=== PATIENT | female | born 1960 ===

== ENCOUNTER 2020-05-05 16:59 | Emergency (ER) | payer OTHER, SELFPAY ==
--- NOTE | 2020-05-05 17:26 | ED.GENADULT ---
HPI - General Adult General Stated complaint: R/O DVT Time Seen by Provider: 05/05/20 17:26 Related Data Previous Rx's Medication Instructions Recorded citalopram 20 mg tablet 20 mg PO DAILY #30 cap 02/25/20 naproxen 500 mg tablet 500 mg PO BID PRN #60 tab 03/08/20 Allergies Allergy/AdvReac Type Severity Reaction Status Date / Time No Known Allergies Allergy Unverified 01/17/20 16:08 [No Known Allergies*] Course Course Course Narrative: 6777-This serves as a rapid medical exam. 59 yo female with past medical history of fibromyalgia, OA, HTN, borderline diabetes here with LLE pain and swelling for weeks. No redness, warmth, fevers, chills. No recent travel or surgeries. No SOB or CP. Will check US. Deferred HPI, ROS, PE and further evaluation until seen by primary provider. Discharge Plan Discharge Prescriptions: No Action citalopram 20 mg tablet 20 mg PO DAILY Qty: 30 RF: 4 naproxen 500 mg tablet 500 mg PO BID PRN (Reason: pain) Qty: 60 RF: 0
[2020-05-05 17:27] VITALS: BP 150/78; PULSE 84; RESP 18; TEMP 36.4; O2SAT 96; BMI 44.8
--- NOTE | 2020-05-05 17:29 | US_ITS ---
EXAMINATION: US VENOUS ULTRASOUND WITH DOPPLER LOWER EXTREMITY, LEFT CLINICAL INFORMATION: Swelling, pain. Rule out DVT COMPARISON: None TECHNIQUE: Ultrasound of the deep veins is performed from the hip to the calf with compression sonography and color and pulse Doppler assessment. Spectral analysis with color-flow imaging is performed. FINDINGS: There is normal venous compression and respiratory variation and augmented flow. The visualized common femoral vein, superficial femoral vein, profunda femoral vein, popliteal vein, and the trifurcation region shows no evidence of deep venous thrombosis. There is no significant popliteal fossa cyst. If the patient's symptoms persist, followup ultrasound in 5 days 7 days might be of value to exclude proximal propagation from a non-visualized calf vein. US/US venous duplex LE IMPRESSION: No DVT demonstrated in the left lower extremity.
== END 2020-05-06 00:24 | disposition left against medical advice (07) ==
LOC: HO.ED 05-06 00:23
PROVIDERS: Emergency Provider Emergency Medicine; PCP Internal Medicine
DX: M79.662 Pain in left lower leg (principal); I10 Essential (primary) hypertension
CPT/HCPCS: 93971; 99282; 99284

== ENCOUNTER → 2020-05-27 11:14 | Outpatient (BNVA) | payer OTHER, MEDICAID, SELFPAY | PROVIDERS: PCP Internal Medicine; Visit Provider Surgery Vascular Surgery | DX: I83.12 Varicose veins of left lower extremity with inflammation (principal) | CPT/HCPCS: 99202 ==

== ENCOUNTER 2020-06-04 10:28 | Outpatient (REF) | payer OTHER, SELFPAY ==
--- NOTE | 2020-06-04 10:34 | US_ITS ---
EXAMINATION: RIGHT and LEFT LOWER EXTREMITY VENOUS ULTRASOUND (Reflux Exam) CLINICAL INDICATION: leg pain and varicose veins. COMPARISON: Previous left lower extremity venous ultrasound May 2020 TECHNIQUE: Color flow triplex imaging and compression Doppler was performed to evaluate both the deep and the superficial systems bilaterally. To evaluate the superficial system, the examination was performed in the upright position. Color-flow Doppler ultrasound and compression ultrasound were utilized. In addition, maneuvers were utilized to demonstrate reflux. FINDINGS: 1. DEEP VENOUS ULTRASOUND OF THE RIGHT LOWER EXTREMITY: Respiratory variation, normal compression and augmented flow are noted in the right common femoral vein as well as the right popliteal vein and there is no evidence of deep venous thrombosis at these locations. There is no evidence of reflux in the deep system in either the common femoral vein or the popliteal vein. There is no evidence of a Khan's cyst. 2. SUPERFICIAL ULTRASOUND WITH DOPPLER OF RIGHT LOWER EXTREMITY: The right great saphenous vein at the saphenofemoral junction measures 10 mm, at the mid thigh 4 mm, jnyti-fhb-dmao 4 mm, hfqsz-mux-sacm 4 mm, at mid calf 2 mm and at the ankle measures 3 mm. There is no reflux demonstrated in the right great saphenous vein. The right small saphenous vein measures 1-6 mm and shows no reflux. There is a small varicosities in the thigh and calf that do not demonstrate reflux measuring maximum 4 mm in the proximal thigh. 3. DEEP VENOUS ULTRASOUND OF THE LEFT LOWER EXTREMITY: Respiratory variation, normal compression and augmented flow are noted in the left common femoral vein as well as the left popliteal vein and there is no evidence of deep venous thrombosis at these locations. There is no evidence of reflux in the deep system in either the common femoral vein or the popliteal vein. . There is no evidence of a Khan's cyst. 4. SUPERFICIAL ULTRASOUND WITH DOPPLER OF LEFT LOWER EXTREMITY: Left great saphenous vein at the saphenofemoral junction measures 8 mm, at the mid thigh 3 mm, eyhfw-xlm-bcye 3 mm, cxjus-jfi-faya 2 mm, at mid calf 2 mm and at the ankle measures 2 mm. There is a 2.2 seconds reflux in the left greater saphenous vein in the proximal thigh. The left small saphenous vein measures 3-5 mm and shows no reflux. There are small varicosities that measure 2 mm in the left thigh and calf that do not demonstrate reflux. US/US venous duplex LE BI IMPRESSION: 1. No evidence of reflux or thrombus in the common femoral veins or popliteal veins bilaterally. 2. No right greater saphenous vein reflux. 2.2 seconds reflux in the left greater saphenous vein in the proximal thigh.
[2020-06-04 14:42] LABS: MANUAL DIFF FLAG NO
[2020-06-04 14:45] LABS: Basophils Percent Auto 0.4 % (0-2); Eosinophils Absolute Auto 0.2 X10*3/uL (0.0-0.4); Eosinophils Percent Auto 2.1 % (0-4); Hematocrit 37.9 % (37-47); Hemoglobin 11.8 g/dl (12.0-16.0); Imm Gran Abs Auto 0.01 X10*3/uL (0.00-0.03); Imm Gran Pct Auto 0.1 % (0.0-0.4); Lymphocytes Absolute Auto 3.3 X10*3/uL (1.2-4.9); Mean Corpuscular HGB Conc 31.1 g/dl (31.0-35.0); Mean Corpuscular Hemoglobin 27.2 pg (27.0-33.0); Mean Corpuscular Volume 87.3 fL (80-98); Mean Platelet Volume 10.4 fL (9.4-12.3); Monocytes Absolute Auto 0.7 X10*3/uL (0.1-1.2); Monocytes Percent Auto 8.7 % (2-11); Neutrophils Absolute Auto 3.5 X10*3/uL (2.0-8.3); Neutrophils Percent Auto 45.7 % (45-73); Platelet Count 389 X10*3/uL (160-400); Red Blood Count 4.34 X10*6/uL (4.20-5.50); Red Cell Distribution Width 12.1 % (11.0-16.0); White Blood Count 7.6 X10*3/uL (4.8-10.8)
[2020-06-04 15:06] LABS: Alanine Aminotransferase 13 U/L (0-31); Albumin Level 3.5 g/dL (3.5-5.0); Alkaline Phosphatase 78 U/L (39-117); Anion Gap 12 (12-20); Aspartate Amino Transferase 18 U/L (5-31); Bilirubin Total 0.3 mg/dL (0.0-1.0); Blood Urea Nitrogen 19 mg/dL (9-16); Calcium 8.7 mg/dL (8.4-10.2); Carbon Dioxide 31 mmol/L (22-29); Chloride 100 mmol/L (96-108); Estimated Glomerular Filt Rate 50; Glucose Random 109 mg/dL (60-115); Potassium 4.6 mmol/L (3.3-5.1); Sodium 138 mmol/L (135-145)
== END 2020-06-04 10:29 | disposition home or self-care (01) ==
LOC: HO.US 10:28
PROVIDERS: Student in an Organized Health Care Education/Training Program; Visit Provider Surgery Vascular Surgery
DX: I83.12 Varicose veins of left lower extremity with inflammation (principal); I83.893 Varicose veins of bilateral lower extremities with other complications; M17.0 Bilateral primary osteoarthritis of knee
CPT/HCPCS: 36415; 80053; 85025; 93970; 99212

== ENCOUNTER → 2020-06-19 11:38 | Outpatient (BNVA) | payer OTHER, SELFPAY | PROVIDERS: Visit Provider Surgery Vascular Surgery | DX: I83.12 Varicose veins of left lower extremity with inflammation (principal) | CPT/HCPCS: 99212 ==

== ENCOUNTER → 2020-07-15 08:42 | Outpatient (BNVA) | payer OTHER, SELFPAY | PROVIDERS: PCP Internal Medicine; Referring Provider Internal Medicine; Visit Provider Student in an Organized Health Care Education/Training Program ==

== ENCOUNTER 2020-11-21 08:50 | Outpatient (REF) | payer OTHER, SELFPAY ==
[2020-11-21 10:12] LABS: MANUAL DIFF FLAG NO
[2020-11-21 10:18] LABS: Basophils Percent Auto 0.5 % (0-2); Eosinophils Absolute Auto 0.2 X10*3/uL (0.0-0.4); Eosinophils Percent Auto 3.5 % (0-4); Hematocrit 39.5 % (37-47); Imm Gran Abs Auto 0.01 X10*3/uL (0.00-0.03); Imm Gran Pct Auto 0.2 % (0.0-0.4); Lymphocytes Absolute Auto 2.7 X10*3/uL (1.2-4.9); Lymphocytes Percent Auto 43.6 % (20-40); Mean Corpuscular HGB Conc 30.4 g/dl (31.0-35.0); Mean Corpuscular Hemoglobin 26.9 pg (27.0-33.0); Mean Corpuscular Volume 88.6 fL (80-98); Mean Platelet Volume 10.7 fL (9.4-12.3); Monocytes Absolute Auto 0.5 X10*3/uL (0.1-1.2); Monocytes Percent Auto 7.7 % (2-11); Neutrophils Absolute Auto 2.7 X10*3/uL (2.0-8.3); Neutrophils Percent Auto 44.5 % (45-73); Platelet Count 397 X10*3/uL (160-400); Red Blood Count 4.46 X10*6/uL (4.20-5.50); Red Cell Distribution Width 12.7 % (11.0-16.0); White Blood Count 6.1 X10*3/uL (4.8-10.8)
[2020-11-21 10:40] LABS: Alanine Aminotransferase 11 U/L (0-31); Anion Gap 14 (12-20); Aspartate Amino Transferase 19 U/L (5-31); Blood Urea Nitrogen 16 mg/dL (9-16); Calcium 9.6 mg/dL (8.4-10.2); Carbon Dioxide 29 mmol/L (22-29); Chloride 103 mmol/L (96-108); Cholesterol 130 mg/dL; Estimated Glomerular Filt Rate 55; Glucose Fasting 117 mg/dL (60-99); HDL Cholesterol 40 mg/dL; Iron 70 mcg/dL (30-160); LDL Cholesterol Calculated 71 mg/dl; Percent Iron Saturation 24 % (15-50); Potassium 5.3 mmol/L (3.3-5.1); Sodium 141 mmol/L (135-145); Total Iron Binding Capacity 296 mcg/dL (228-428); Triglycerides 98 mg/dL; Unsaturated Iron Binding 226 ug/dL
[2020-11-21 10:48] LABS: Estimated Average Glucose 134 mg/dL; Hemoglobin A1c % 6.3 %
== END 2020-11-21 08:51 | disposition home or self-care (01) ==
LOC: HO.LAB 08:50
PROVIDERS: Visit Provider Internal Medicine
DX: Z00.01 Encounter for general adult medical examination with abnormal findings (principal); R73.01 Impaired fasting glucose; D64.9 Anemia, unspecified; I10 Essential (primary) hypertension; Z78.0 Asymptomatic menopausal state
CPT/HCPCS: 36415; 80048; 80061; 82306; 83036; 83540; 84450; 84460; 85025

== ENCOUNTER 2021-01-30 07:47 | Outpatient (REF) | payer OTHER, SELFPAY ==
--- NOTE | ~2021-01-30 | MM_ITS ---
EXAMINATION: MM SCREENING DIGITAL BREAST TOMOSYNTHESIS, BILATERAL CLINICAL INFORMATION: Screening. Asymptomatic. The lifetime risk of breast cancer based on the Tyrer-Cuzick Model is 5%. COMPARISON: Mammography: 01/24/2020, 09/15/2018, 08/31/2017 TECHNIQUE: Digital breast tomosynthesis is performed in both the craniocaudal and mediolateral oblique views along with computer-aided detection (CAD). Synthesized 2D images are generated from the tomosynthesis. FINDINGS: There are scattered areas of fibroglandular density (ACR BI-RADS breast composition Category b). There are no significant masses, abnormal calcifications, or other abnormalities. Parenchymal pattern is similar to prior studies. The axilla and skin contours are unremarkable. MM/MM tomosynthesis screening BI IMPRESSION: No mammographic evidence of malignancy. ASSESSMENT: BI-RADS 1: Negative RECOMMENDATION: Routine annual mammography screening. This patient's information was entered into a reminder system with a target due date for their next mammogram.
--- NOTE | ~2021-01-30 | MM_ITS ---
EXAMINATION: BONE DENSITOMETRY CLINICAL INDICATION: Asymptomatic menopausal state. COMPARISON: None (current study represents initial baseline exam). TECHNIQUE: Using a [employer] DXA System (software version: 13.1) manufactured by [employer], dual-energy x-ray absorptiometry was performed of the lumbar spine and left hip. The images are of good technical quality. Summary results are attached. FINDINGS: AP SPINE L1-L4: BMD 1.384 g/cm2, Z-score 2.1, T-score 1.7, normal. LEFT FEMUR, NECK: BMD 1.039 g/cm2, Z-score 0.7, T-score 0.0, normal. LEFT FEMUR, TOTAL: BMD 1.236 g/cm2, Z-score 2.2, T-score 1.8, normal. IDENTIFIED RISK FACTORS: Menopause. HISTORY OF FRACTURE: None listed. MEDICATIONS: Vitamin D. MM/XR DEXA axial skeleton IMPRESSION: 1. DIAGNOSIS: Normal bone density based on the lowest T-score value of 0.0 in the femoral neck applying World Health Organization criteria. 2. 10-YEAR FRACTURE RISK PREDICTION, FRAX: Major osteoporotic fracture (clinical spine, forearm, hip or shoulder) 2.9%. Hip fracture 0.1%. 3. Treatment Recommendations: NOF guidelines recommend consideration for treatment in postmenopausal women and men age 50 and older presenting with the following: -A hip or vertebral (clinical or morphometric) fracture. -T-score less than or equal to -2.5 at the femoral neck or spine after appropriate evaluation to exclude secondary causes. -Low bone mass at the hip or spine and a 10-year fracture probability by FRAX of greater than or equal to 3% for hip fracture or greater than or equal to 20% for major osteoporotic fracture based on the [place] adapted WHO algorithm. 4. Other Recommendations: All treatment decisions require clinical judgment and consideration of individual patient factors, including patient preferences, comorbidities, previous drug use, risk factors not captured in the FRAX model (e.g. frailty, falls, vitamin D deficiency, increased bone turnover, interval significant decline in bone density) and possible under or overestimation of fracture risk by FRAX. FUTURE SCAN RECOMMENDATION: People with diagnosed cases of osteoporosis or at high risk for fracture should have regular bone mineral density tests. For patients eligible for Medicare, routine testing is allowed once every 2 years. The testing frequency can be increased to one year for patients who have rapidly progressing disease, those who are receiving or discontinuing medical therapy to restore bone mass, or have additional risk factors.
== END 2021-01-30 07:48 | disposition home or self-care (01) ==
LOC: HO.MAMMO 07:47
PROVIDERS: Visit Provider Internal Medicine
DX: Z13.820 Encounter for screening for osteoporosis (principal); Z78.0 Asymptomatic menopausal state; Z12.31 Encounter for screening mammogram for malignant neoplasm of breast
CPT/HCPCS: 77063; 77067; 77080

== ENCOUNTER 2021-06-05 08:50 | Outpatient (REF) | payer OTHER, SELFPAY ==
--- NOTE | ~2021-06-05 | XR_ITS ---
EXAMINATION: XR SHOULDER, LEFT XR WRIST, LEFT CLINICAL INFORMATION: Left shoulder and left wrist pain. COMPARISON: None TECHNIQUE: AP, Grashey, scapular Y, and axillary views of the left shoulder. AP, oblique, lateral, and scaphoid views of the left wrist. FINDINGS: LEFT SHOULDER: Moderate acromioclavicular osteoarthritis with small lateral subacromial spurs. Small glenohumeral marginal osteophytes. Mild enthesopathic spurring at the posterior aspect of the greater tuberosity. No acute fracture or dislocation. LEFT WRIST: No displaced fracture. Mild joint space narrowing with tiny marginal osteophytes at the triscaphe joint as well as at the distal radioulnar joint. No dislocation. Normal carpal alignment. No abnormal soft tissue calcification. XR/XR shoulder LT min 2V IMPRESSION: Left shoulder: No acute fracture or dislocation. Moderate acromioclavicular osteoarthritis with small lateral subacromial spurs. Mild glenohumeral osteoarthritis. Left wrist: No displaced fracture. If there is snuffbox tenderness/persistent clinical concern for a nondisplaced scaphoid fracture, CT of the wrist could help further evaluate. Mild distal radioulnar and triscaphe joint osteoarthritis.
--- NOTE | ~2021-06-05 | XR_ITS ---
EXAMINATION: XR SHOULDER, LEFT XR WRIST, LEFT CLINICAL INFORMATION: Left shoulder and left wrist pain. COMPARISON: None TECHNIQUE: AP, Grashey, scapular Y, and axillary views of the left shoulder. AP, oblique, lateral, and scaphoid views of the left wrist. FINDINGS: LEFT SHOULDER: Moderate acromioclavicular osteoarthritis with small lateral subacromial spurs. Small glenohumeral marginal osteophytes. Mild enthesopathic spurring at the posterior aspect of the greater tuberosity. No acute fracture or dislocation. LEFT WRIST: No displaced fracture. Mild joint space narrowing with tiny marginal osteophytes at the triscaphe joint as well as at the distal radioulnar joint. No dislocation. Normal carpal alignment. No abnormal soft tissue calcification. XR/XR wrist LT 2V IMPRESSION: Left shoulder: No acute fracture or dislocation. Moderate acromioclavicular osteoarthritis with small lateral subacromial spurs. Mild glenohumeral osteoarthritis. Left wrist: No displaced fracture. If there is snuffbox tenderness/persistent clinical concern for a nondisplaced scaphoid fracture, CT of the wrist could help further evaluate. Mild distal radioulnar and triscaphe joint osteoarthritis.
== END 2021-06-05 08:51 | disposition home or self-care (01) ==
LOC: HO.XRAY 08:50
PROVIDERS: PCP Internal Medicine; Visit Provider Nurse Practitioner Family
DX: M17.0 Bilateral primary osteoarthritis of knee (principal); M25.512 Pain in left shoulder; M25.532 Pain in left wrist
CPT/HCPCS: 73030; 73100; 99212

== ENCOUNTER → 2021-06-09 09:26 | Outpatient (BNVA) | payer OTHER, SELFPAY | PROVIDERS: PCP Internal Medicine; Visit Provider Nurse Practitioner Family | DX: M25.532 Pain in left wrist (principal); M17.0 Bilateral primary osteoarthritis of knee | CPT/HCPCS: 99212 ==

== ENCOUNTER → 2021-07-03 08:58 | Outpatient (BNVA) | payer OTHER, SELFPAY | PROVIDERS: PCP Internal Medicine; Visit Provider Physician Assistant | DX: M75.102 Unspecified rotator cuff tear or rupture of left shoulder, not specified as traumatic (principal) | CPT/HCPCS: 20610; 99202; J1040 ==

== ENCOUNTER 2021-07-16 08:41 | Outpatient (REF) | payer OTHER, SELFPAY ==
--- NOTE | ~2021-07-16 | CT_ITS ---
EXAMINATION: CT LEFT WRIST CLINICAL INFORMATION: Wrist pain 1 year COMPARISON: X-ray 06/05/2021 TECHNIQUE: Axial imaging. Sagittal and coronal reconstructions. Dose: 141 mCi sunshine FINDINGS: No acute fracture is seen. Scaphoid appears intact without evidence of discrete fracture. Mild degenerative spurring at the first CMC joint. Minimal distal radioulnar arthritis. Joint space are relatively maintained. Carpal row alignment is maintained. No erosions or abnormal soft tissue calcification. Limited evaluation of the tendons. No gross tendon abnormality is identified. No focal fluid collection is seen. CT/CT wrist LT wo con IMPRESSION: *No evidence of acute osseous abnormality. *Mild first CMC arthritis. Minimal distal radioulnar arthritis. *If there is clinical clinical concern concern for intra-articular derangement or soft tissue abnormality, MRI could be helpful.
== END 2021-07-16 08:42 | disposition home or self-care (01) ==
LOC: HO.CT 08:41
PROVIDERS: PCP Internal Medicine; Visit Provider Nurse Practitioner Family
DX: M25.532 Pain in left wrist (principal)
CPT/HCPCS: 73200

== ENCOUNTER 2021-07-23 10:00 | Outpatient (RCR) | payer OTHER, SELFPAY ==
--- NOTE | 2021-06-25 10:52 | MHC.PT.EP ---
[facility] [place] Office [place] Office [place] Office [address] Yennifer Dominguez [address] [phone] F: [phone] F: [phone] F: [phone] F: [phone] Physical Therapy Plan of Care Date of Evaluation: Date of Surgery: N/A Diagnosis: pain in left shoulder Assessment: pt presents to physical therapy with pain, decreased range of motion, decreased strength, impaired functional mobility, impaired postural awareness, and gait deviations. pt is a good candidate for skilled PT due to age, potential remediation of impairments, typical disease/condition progression and prognosis, comorbidities, and motivation. pt would benefit from tailored strengthening and stretching exercise program, functional training, gait training, postural re-training, neuromuscular re-education, modalities as needed for pain, equipment safety demonstration. Frequency and Duration: The patient will be seen 2x/wk for 4 wks Short Term Goals: pt will be I w/ HEP to promote self-management of condition. pt will improve L shoulder flexion by 10 degrees to promote ease in reaching into cabinets for cooking utensils for meal prep. [facility] Goals: pt will report a statistically significant improvement in self-reported outcome measure, SPADI, to promote return to PLOF. pt will demo proper optical advisor bed mobility, sit<>supine transfer, and sit to stand transfer to promote optimal safety and injury prevention when taking care of her . Treatment Plan: Modalities to reduce pain, spasms and effusion. Manual therapy to restore motion and function. Therapeutic exercise to improve strength and flexibility. Neuromuscular re-education for posture and balance. Therapeutic activities to return to functional activities of daily living. Electronically signed by: Mackenzie Adams PT, DPT Please sign and return to therapist. Thank you for your referral.
--- NOTE | 2021-08-11 14:38 | MHC.PT.DC ---
[facility] [place] Office [place] Office [place] Office [address]ing[address] 140 [facility] [place] [phone] F: [phone] F: [phone] F: [phone] F: [phone] Physical Therapy Discharge Report Diagnosis: pain in left shoulder Date of Surgery: N/A Date of Evaluation: 06/25/21 Date of Discharge: 08/11/21 Treatments to Date: 7 Cancellations to Date: 3 No Shows to Date: 0 Discharge Status: Improved Function Independent with HEP Patient Elected to Stop Discharge Summary: The patient was doing very well and reporting an improvement in her pain severity, frequency, and ability to tolerate self-care activities and chores around the house. She was limited by some wrist pain but was still able to participate in physical therapy for her shoulder. She has a home exercise program. She cancelled her last visit and has not rescheduled any new appointments in nearly two weeks. She is discharged from this physical therapy plan of care to her home exercise program. Electronically signed by: Mackenzie Adams PT, DPT Please sign and return to therapist. Thank you for your referral.
== END 2021-08-11 14:38 | disposition home or self-care (01) ==
LOC: HO.PT 10:00
PROVIDERS: PCP Internal Medicine; Visit Provider Nurse Practitioner Family
DX: M25.512 Pain in left shoulder (principal)
CPT/HCPCS: 97110; 97162

== ENCOUNTER 2021-10-24 09:11 | Outpatient (REF) | payer OTHER, SELFPAY ==
[2021-10-24 09:25] LABS: MANUAL DIFF FLAG NO
[2021-10-24 10:18] LABS: Alanine Aminotransferase 15 U/L (0-31); Anion Gap 13 (12-20); Aspartate Amino Transferase 22 U/L (5-31); Blood Urea Nitrogen 18 mg/dL (9-16); Calcium 9.1 mg/dL (8.4-10.2); Carbon Dioxide 27 mmol/L (22-29); Chloride 104 mmol/L (96-108); Cholesterol 130 mg/dL; Estimated Glomerular Filt Rate 54; Glucose Fasting 137 mg/dL (60-99); HDL Cholesterol 36 mg/dL; LDL Cholesterol Calculated 67 mg/dl; Potassium 4.8 mmol/L (3.3-5.1); Sodium 139 mmol/L (135-145); Triglycerides 135 mg/dL
[2021-10-24 10:25] LABS: Basophils Percent Auto 0.6 % (0-2); Eosinophils Absolute Auto 0.2 X10*3/uL (0.0-0.4); Eosinophils Percent Auto 3.6 % (0-4); Hematocrit 38.8 % (37.0-47.0); Hemoglobin 11.8 g/dl (12.0-16.0); Imm Gran Abs Auto 0.01 X10*3/uL (0.00-0.03); Imm Gran Pct Auto 0.2 % (0.0-0.4); Lymphocytes Absolute Auto 2.8 X10*3/uL (1.2-4.9); Lymphocytes Percent Auto 43.8 % (20-40); Mean Corpuscular HGB Conc 30.4 g/dl (31.0-35.0); Mean Corpuscular Hemoglobin 26.6 pg (27.0-33.0); Mean Corpuscular Volume 87.6 fL (80.0-98.0); Mean Platelet Volume 10.3 fL (9.4-12.3); Monocytes Absolute Auto 0.5 X10*3/uL (0.1-1.2); Monocytes Percent Auto 8.4 % (2-11); Neutrophils Absolute Auto 2.7 x10*3/uL (2.0-8.3); Neutrophils Percent Auto 43.4 % (45-73); Platelet Count 383 X10*3/uL (160-400); Red Blood Count 4.43 X10*6/uL (4.20-5.50); Red Cell Distribution Width 12.2 % (11.0-16.0); White Blood Count 6.3 X10*3/uL (4.8-10.8)
[2021-10-24 10:41] LABS: Vitamin D 25-OH Total 30.3 ng/mL (>30)
[2021-10-24 10:44] LABS: Estimated Average Glucose 146 mg/dL; Hemoglobin A1c % 6.7 %
== END 2021-10-24 09:12 | disposition home or self-care (01) ==
LOC: HO.LAB 09:11
PROVIDERS: PCP Internal Medicine; Visit Provider Internal Medicine
DX: Z00.01 Encounter for general adult medical examination with abnormal findings (principal); R73.01 Impaired fasting glucose; F41.1 Generalized anxiety disorder; D64.9 Anemia, unspecified; Z78.0 Asymptomatic menopausal state
CPT/HCPCS: 36415; 80048; 80061; 82306; 83036; 84450; 84460; 85025

== ENCOUNTER 2022-02-01 13:51 | Outpatient (REF) | payer OTHER, SELFPAY ==
--- NOTE | ~2022-02-01 | MM_ITS ---
EXAMINATION: MM SCREENING DIGITAL BREAST TOMOSYNTHESIS, BILATERAL CLINICAL INFORMATION: Screening. Asymptomatic. The lifetime risk of breast cancer based on the Tyrer-Cuzick Model is 5%. COMPARISON: Mammography: 01/30/2021, 01/24/2020, 09/15/2018 TECHNIQUE: Digital breast tomosynthesis is performed in both the craniocaudal and mediolateral oblique views along with computer-aided detection (CAD). Synthesized 2D images are generated from the tomosynthesis. Additional right MLO and left CC views are provided. FINDINGS: There are scattered areas of fibroglandular density (ACR BI-RADS breast composition Category b). There are no significant masses, abnormal calcifications, or other abnormalities. Parenchymal pattern is similar to prior studies. There is no developing density or architectural abnormality. The axilla and skin contours are unremarkable. No significant changes. MM/MM tomosynthesis screening BI IMPRESSION: No mammographic evidence of malignancy. ASSESSMENT: BI-RADS 1: Negative RECOMMENDATION: Routine annual mammography screening. This patient's information was entered into a reminder system with a target due date for their next mammogram.
== END 2022-02-01 13:52 | disposition home or self-care (01) ==
LOC: HO.MAMMO 13:51
PROVIDERS: PCP Internal Medicine; Visit Provider Internal Medicine
DX: Z12.31 Encounter for screening mammogram for malignant neoplasm of breast (principal)
CPT/HCPCS: 77063; 77067

== ENCOUNTER 2022-02-16 08:13 | Outpatient (REF) | payer OTHER, SELFPAY ==
[2022-02-16 08:29] LABS: MANUAL DIFF FLAG NO
[2022-02-16 09:20] LABS: Basophils Percent Auto 0.7 % (0-2); Eosinophils Absolute Auto 0.2 X10*3/uL (0.0-0.4); Eosinophils Percent Auto 3.8 % (0-4); Hematocrit 39.5 % (37.0-47.0); Hemoglobin 12.3 g/dl (12.0-16.0); Imm Gran Abs Auto 0.01 X10*3/uL (0.00-0.03); Imm Gran Pct Auto 0.2 % (0.0-0.4); Lymphocytes Absolute Auto 2.4 X10*3/uL (1.2-4.9); Lymphocytes Percent Auto 39.9 % (20-40); Mean Corpuscular HGB Conc 31.1 g/dl (31.0-35.0); Mean Corpuscular Hemoglobin 26.7 pg (27.0-33.0); Mean Corpuscular Volume 85.7 fL (80.0-98.0); Mean Platelet Volume 10.1 fL (9.4-12.3); Monocytes Absolute Auto 0.6 X10*3/uL (0.1-1.2); Monocytes Percent Auto 9.1 % (2-11); Neutrophils Absolute Auto 2.8 x10*3/uL (2.0-8.3); Neutrophils Percent Auto 46.3 % (45-73); Platelet Count 390 X10*3/uL (160-400); Red Blood Count 4.61 X10*6/uL (4.20-5.50); Red Cell Distribution Width 12.3 % (11.0-16.0)
[2022-02-16 09:38] LABS: Estimated Average Glucose 160 mg/dL; Hemoglobin A1c % 7.2 %
[2022-02-16 09:55] LABS: Anion Gap 18 (12-20); Blood Urea Nitrogen 18 mg/dL (9-16); Calcium 8.9 mg/dL (8.4-10.2); Carbon Dioxide 25 mmol/L (22-29); Chloride 101 mmol/L (96-108); Estimated Glomerular Filt Rate 56; Glucose Fasting 144 mg/dL (60-99); Iron 53 mcg/dL (30-160); Percent Iron Saturation 19 % (15-50); Potassium 4.9 mmol/L (3.3-5.1); Sodium 139 mmol/L (135-145); Total Iron Binding Capacity 282 mcg/dL (228-428); Unsaturated Iron Binding 229 ug/dL
== END 2022-02-16 08:14 | disposition home or self-care (01) ==
LOC: HO.LAB 08:13
PROVIDERS: PCP Internal Medicine; Visit Provider Internal Medicine
DX: D64.9 Anemia, unspecified (principal); E66.01 Morbid (severe) obesity due to excess calories; R73.01 Impaired fasting glucose; I10 Essential (primary) hypertension
CPT/HCPCS: 36415; 80048; 83036; 83540; 85025

== ENCOUNTER 2022-06-05 09:47 | Outpatient (REF) | payer OTHER, SELFPAY ==
[2022-06-05 11:10] LABS: Estimated Average Glucose 157 mg/dL; Hemoglobin A1c % 7.1 %
[2022-06-05 12:15] LABS: Creatinine Urine 141.46 mg/dL; Microalbum/Creatinine Ratio Ur 6.3 ug/mg cr
[2022-06-05 12:20] LABS: Alanine Aminotransferase 13 U/L (0-31); Anion Gap 14 (12-20); Aspartate Amino Transferase 19 U/L (5-31); Blood Urea Nitrogen 17 mg/dL (9-16); Calcium 9.4 mg/dL (8.4-10.2); Carbon Dioxide 28 mmol/L (22-29); Chloride 102 mmol/L (96-108); Cholesterol 140 mg/dL; Estimated Glomerular Filt Rate 60; Glucose Fasting 144 mg/dL (60-99); HDL Cholesterol 36 mg/dL; LDL Cholesterol Calculated 80 mg/dl; Potassium 4.7 mmol/L (3.3-5.1); Sodium 139 mmol/L (135-145); Triglycerides 123 mg/dL
== END 2022-06-05 09:48 | disposition home or self-care (01) ==
LOC: HO.HMGCLDS 09:47
PROVIDERS: Visit Provider Internal Medicine
DX: E66.01 Morbid (severe) obesity due to excess calories (principal); F41.1 Generalized anxiety disorder; I10 Essential (primary) hypertension; E11.65 Type 2 diabetes mellitus with hyperglycemia
CPT/HCPCS: 36415; 80048; 80061; 82043; 83036; 84450; 84460

== ENCOUNTER 2022-07-09 10:07 | Outpatient (REF) | payer OTHER, SELFPAY ==
--- NOTE | ~2022-07-09 | XR_ITS ---
EXAMINATION: XR KNEE, LEFT CLINICAL INFORMATION: Pain COMPARISON: None TECHNIQUE: Three views of the left knee. FINDINGS: Mild degenerative changes. No acute osseous abnormalities. Soft tissues are unremarkable. XR/XR knee LT 3V IMPRESSION: Mild degenerative changes.
== END 2022-07-09 10:08 | disposition home or self-care (01) ==
LOC: HO.XRAY 10:07
PROVIDERS: PCP Internal Medicine; Visit Provider Nurse Practitioner Family
DX: M25.532 Pain in left wrist (principal); M25.562 Pain in left knee
CPT/HCPCS: 73562; 99212

== ENCOUNTER 2022-07-14 12:30 | Emergency (ER) | payer OTHER, SELFPAY ==
--- NOTE | ~2022-07-14 | XR_ITS ---
EXAMINATION: LEFT WRIST CLINICAL INFORMATION: Patient fell. Deformity COMPARISON: None TECHNIQUE: 3 views FINDINGS: Impacted distal radial fracture noted. Distal ulna is intact. There is overlying soft tissue swelling. XR/XR hand wrist LT IMPRESSION: Distal radial fracture.
--- NOTE | ~2022-07-14 | XR_ITS ---
EXAMINATION: XR WRIST, LEFT XR HAND, LEFT CLINICAL INFORMATION: Post reduction. COMPARISON: Earlier today at 1:15 PM. TECHNIQUE: 2 views of the left hand/wrist. FINDINGS: Overlying casting limits evaluation of fine osseous details. Redemonstration of a distal radial fracture with mild decreased dorsal angulation and overall similar degree of impaction. No interval injuries. XR/XR hand wrist LT IMPRESSION: Slightly decreased dorsal angulation of the distal radial fracture.
[2022-07-14 13:06] VITALS: BP 168/71; PULSE 82; RESP 16; TEMP 36.8; O2SAT 96; BMI 29.9
--- NOTE | 2022-07-14 13:06 | ED.FALL ---
HPI - Fall General Chief Complaint: Extremity Injury, Upper <SHANTANU Kumari - Last Filed: 07/14/22 13:09> Stated Complaint: Fall/ Left wrist injury <SHANTANU Kumari - Last Filed: 07/14/22 13:09> Time Seen by Provider: 07/14/22 13:10 <SHANTANU Kumari - Last Filed: 07/14/22 13:09> History of Present Illness HPI Narrative: Patient complains of left wrist pain after slip and fall in the snow this morning, no other injury, no numbness no weakness no tingling, no head strike no head injury no headache no loss of consciousness no confusion, no preceding symptoms no syncope no feeling faint no dizziness prior to fall, she does remember everything, no neck pain no back pain no other extremity injuries or pains <SHANTANU Vega - Last Filed: 07/16/22 11:56> Related Data Home Medications: Home Medications Medication Instructions Recorded Confirmed cholecalciferol (vitamin D3) 50 50 mcg PO DAILY 05/13/20 06/05/21 mcg (2,000 unit) capsule acetaminophen 500 mg tablet 500 mg PO Q6H PRN 06/09/21 (Tylenol Extra Strength) naproxen 500 mg tablet 500 mg PO BID PRN 07/09/22 07/09/22 Previous Rx's Medication Instructions Recorded citalopram 20 mg tablet 20 mg PO DAILY #90 caps 08/13/21 lisinopril 5 mg tablet 5 mg PO QAM #90 caps 08/13/21 metformin 500 mg tablet 500 mg PO DAILY 30 days #30 tabs 03/03/22 blood sugar diagnostic (FreeStyle #50 ea 03/10/22 Lite Strips) blood-glucose meter (FreeStyle #1 ea 03/10/22 Sulphur Lite kit) lancets 28 gauge (FreeStyle #100 ea 03/10/22 Lancets) oxycodone 5 mg tablet 5 mg PO Q6H PRN pain #14 tabs 07/14/22 <SHANTANU Kumari Last Filed: 07/14/22 13:09> Allergies/Adverse Reactions: Allergies Allergy/AdvReac Type Severity Reaction Status Date / Time No Known Allergies Allergy Verified 07/16/22 08:55 [No Known Allergies*] <SHANTANU Kumari - Last Filed: 07/14/22 13:09> [facility] Past Medical History Source: nursing notes reviewed <SHANTANU Vega - Last Filed: 07/16/22 11:56> Medical History: Medical History Anemia Bilateral primary osteoarthritis of knee Diabetes mellitus with hyperglycemia, without long-term current use of insulin Fibromyalgia Generalized anxiety disorder HTN (hypertension) Osteoarthritis Postmenopause Varicose veins of left lower extremity with pain <SHANTANU Kumari - Last Filed: 07/14/22 13:09> Surgical History: Surgical History H/O arthroscopy of left knee History of inguinal herniorrhaphy <SHANTANU Kumari - Last Filed: 07/14/22 13:09> Family History Family History: Family History Father Myocardial infarction Cancer of prostate Substance use disorder Mother HTN (hypertension) Diabetes mellitus Maternal Grandmother HTN (hypertension) Daughter No problems noted. Daughter No problems noted. Daughter No problems noted. Daughter No problems noted. Sister No problems noted. Sister No problems noted. Sister No problems noted. Sister No problems noted. Brother No problems noted. Brother No problems noted. Brother No problems noted. Brother No problems noted. Brother Substance use disorder Brother No problems noted. Brother No problems noted. 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 Current occupational exposures/hazards: No Cognitive needs: No Hearing needs: No Vision needs: No <SHANTANU Kumari - Last Filed: 07/14/22 13:09> Physical Exam Vital Signs: Vital Signs: Last Vital Signs Temp 98.2 F 07/14/22 13:06 Pulse 82 07/14/22 13:06 Resp 16 07/14/22 13:06 BP 168/71 H 07/14/22 13:06 Pulse Ox 96 07/14/22 13:06 O2 Del Method 07/14/22 13:06 BMI result Body Mass Index 29.9 <SHANTANU Kumari - Last Filed: 07/14/22 13:09> Vital Signs: Last Vital Signs Temp 98.2 F 07/14/22 13:06 Pulse 82 07/14/22 13:06 Resp 16 07/14/22 13:06 BP 168/71 H 07/14/22 13:06 Pulse Ox 96 07/14/22 13:06 O2 Del Method 07/14/22 13:06 BMI result Body Mass Index 29.9 <SHANTANU Vega - Last Filed: 07/16/22 11:56> General appearance no distress dress Head is normocephalic atraumatic The neck is supple nontender Chest wall nontender Abdomen nontender Extremities the left dorsal wrist is tender and swollen, neurovascular intact distal, skin is intact Range of motion is limited in the left wrist, elbow and hand have no tenderness or swelling <SHANTANU Vega - Last Filed: 07/16/22 11:56> Course Course Course Narrative: RME--62-year-old female with a past medical history HTN, diabetes, presenting to the ED 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 + noted deformity to left wrist with diffuse swelling and tenderness to palpation. Decreased ROM. Neurovascular intact distally. 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 + noted deformity to left wrist with diffuse swelling and tenderness to palpation. Decreased ROM. Neurovascular intact distally. XRs ordered Left wrist x-ray showed an impacted distal radius fracture, ulnar was intact Attempt at reduction was made by hanging the arm with a weight for 45 minutes Post reduction did not show significant improvement, contacted Ortho and they will see her in the office and it was splinted Patient's pain had been controlled with analgesics and she was comfortable and cooperative throughout visit and she was discharged with a volar splint to follow with Ortho <SHANTANU Vega - Last Filed: 07/16/22 11:56> Medications Administered Discontinued Medications Generic Name Dose Route Start Last Admin Trade Name Freq PRN Reason Stop Dose Admin Acetaminophen 975 mg 07/14/22 13:30 07/14/22 13:34 Acetaminophen 325 Mg Tablet PO 07/14/22 13:31 975 mg ONCE ONE Administration Lorazepam 1 mg 07/14/22 16:49 07/14/22 16:52 Lorazepam 1 Mg Tablet PO 07/14/22 16:50 Not Given ONCE ONE Oxycodone HCl 5 mg 07/14/22 13:29 07/14/22 13:34 Oxycodone Hcl Immed Release 5 Mg Tablet PO 07/14/22 13:30 5 mg ONCE ONE Administration <SHANTANU Kumari - Last Filed: 07/14/22 13:09> Medications Administered Discontinued Medications Generic Name Dose Route Start Last Admin Trade Name Freq PRN Reason Stop Dose Admin Acetaminophen 975 mg 07/14/22 13:30 07/14/22 13:34 Acetaminophen 325 Mg Tablet PO 07/14/22 13:31 975 mg ONCE ONE Administration Lorazepam 1 mg 07/14/22 16:49 07/14/22 16:52 Lorazepam 1 Mg Tablet PO 07/14/22 16:50 Not Given ONCE ONE Oxycodone HCl 5 mg 07/14/22 13:29 07/14/22 13:34 Oxycodone Hcl Immed Release 5 Mg Tablet PO 07/14/22 13:30 5 mg ONCE ONE Administration <SHANTANU Vega - Last Filed: 07/16/22 11:56> Discharge Plan Discharge Clinical Impression: Fracture of left wrist <SHANTANU Kumari - Last Filed: 07/14/22 13:09> Patient Disposition: Home, Self-Care <SHANTANU Kumari Last Filed: 07/14/22 13:09> Additional Instructions: Follow closely with orthopedist to determine if you need surgical treatment Use sling to keep arm elevated to reduce swelling Return any time if worse <SHANTANU Kumari Last Filed: 07/14/22 13:09> Prescriptions: New oxycodone 5 mg tablet 5 mg PO Q6H PRN (Reason: pain) Qty: 14 0RF Rx Instructions: Partial Fill upon patient request. No Action citalopram 20 mg tablet 20 mg PO DAILY Qty: 90 3RF lisinopril 5 mg tablet 5 mg PO QAM Qty: 90 3RF (DME) blood-glucose meter [FreeStyle Sulphur Lite] Kit See Rx Instructions .Route Qty: 1 0RF Rx Instructions: check fasting glucose qd ac (DME) FreeStyle Lite Strips Strip See Rx Instructions .Route Qty: 50 4RF Rx Instructions: check fasting glucose qd ac (DME) lancets [FreeStyle Lancets] 28 gauge misc See Rx Instructions .Route Qty: 100 0RF Rx Instructions: As directed cholecalciferol (vitamin D3) 50 mcg (2,000 unit) capsule 50 mcg PO DAILY metformin 500 mg tablet 500 mg PO DAILY 30 Days Qty: 30 5RF Rx Instructions: take with supper acetaminophen [Tylenol Extra Strength] 500 mg tablet 500 mg PO Q6H PRN naproxen 500 mg tablet 500 mg PO BID PRN <SHANTANU Kumari - Last Filed: 07/14/22 13:09> Referrals: Kranthi Rivera MD [Physician] - (Left wrist fracture) <SHANTANU Kumari - Last Filed: 07/14/22 13:09> Interventions: ED Discharge Assessment Last Done: 07/14/22 17:47 <SHANTANU Kumari - Last Filed: 07/14/22 13:09> Discharge Date/Time: 07/14/22 17:47 <SHANTANU Kumari - Last Filed: 07/14/22 13:09>
[2022-07-14] MEDS: oxyCODONE HCl Immed Release 5 MG TABLET PO (13:34)
[2022-07-14] MEDS: Acetaminophen 325 MG TABLET 975 MG PO (13:34)
== END 2022-07-14 17:47 | disposition home or self-care (01) ==
PROVIDERS: Emergency Provider Emergency Medicine; PCP Internal Medicine
DX: S62.102A Fracture of unspecified carpal bone, left wrist, initial encounter for closed fracture (principal); M25.532 Pain in left wrist; W00.0XXA Fall on same level due to ice and snow, initial encounter; Y93.9 Activity, unspecified; Y92.007 Garden or yard of unspecified non-institutional (private) residence as the place of occurrence of the external cause; Y99.9 Unspecified external cause status; Z79.899 Other long term (current) drug therapy
CPT/HCPCS: 73110; 73130; 99283

== ENCOUNTER → 2022-07-16 08:44 | Outpatient (BNVA) | payer OTHER, SELFPAY | PROVIDERS: PCP Internal Medicine; Visit Provider Physician Assistant | DX: S52.502A Unspecified fracture of the lower end of left radius, initial encounter for closed fracture (principal) | CPT/HCPCS: 99202 ==

== ENCOUNTER 2022-07-19 05:47 | Day surgery (SDC) | payer OTHER, SELFPAY ==
--- NOTE | 2022-07-16 14:37 | HO.ANESPROP2 ---
Documented by User: Dee Cooper NP 07/16/22 14:39 HPI - Anesthesia Eval Consult details Narrative: 62yo F for Left Radius Distal Fracture ORIF PMFSH Active Problems Active Problems: All Active Problems (Updated 07/16/22 @ 09:46 by Lisandro Levy PA-C) Distal radius fracture, left (Acute) Diabetes mellitus with hyperglycemia, without long-term current use of insulin (Acute) HTN (hypertension) (Acute) Morbid obesity (Acute) Painful arc syndrome of left shoulder (Acute) Generalized anxiety disorder (Acute) Postmenopause (Acute) Bilateral primary osteoarthritis of knee (Acute) Varicose veins of left lower extremity with inflammation (Acute) Varicose veins of left lower extremity with pain (Acute) Past Medical History Medical History Anemia Bilateral primary osteoarthritis of knee Diabetes mellitus with hyperglycemia, without long-term current use of insulin Fibromyalgia Generalized anxiety disorder HTN (hypertension) Osteoarthritis Postmenopause Varicose veins of left lower extremity with pain Family History Family History Father Myocardial infarction Cancer of prostate Substance use disorder Mother HTN (hypertension) Diabetes mellitus Maternal Grandmother HTN (hypertension) Daughter No problems noted. Daughter No problems noted. Daughter No problems noted. Daughter No problems noted. Sister No problems noted. Sister No problems noted. Sister No problems noted. Sister No problems noted. Brother No problems noted. Brother No problems noted. Brother No problems noted. Brother No problems noted. Brother Substance use disorder Brother No problems noted. Brother No problems noted. Surgical History Surgical History H/O arthroscopy of left knee History of inguinal herniorrhaphy Social History Social History (Updated 07/16/22 @ 08:56 by KELVIN Crow) Housing: Apartment Alcohol intake: never Patient Tobacco Use Status: Never used Tobacco Tobacco use type: Cigarette Years Smoked: pt tried 48 years ago e-Cigarette/Vaping Use: Never Used Second Hand Smoke Exposure: No Use of substances other than those prescribed or required for medical reasons: No Are you DNR?: No Advance Directives: No Advance Directives Information Provided: Yes Advance Directives on File: No service: No Current occupational status: disabled 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 Current occupational exposures/hazards: No Cognitive needs: No Hearing needs: No Vision needs: No Meds Allergies Allergy/AdvReac Type Severity Reaction Status Date / Time No Known Allergies Allergy Verified 07/16/22 08:55 [No Known Allergies*] Home Medications Medication Instructions Recorded Confirmed Last Taken Type cholecalciferol (vitamin D3) 50 50 mcg PO DAILY 05/13/20 07/19/22 07/18/22 History mcg (2,000 unit) capsule acetaminophen 500 mg tablet 500 mg PO Q6H PRN Pain 06/09/21 07/19/22 07/17/22 History (Tylenol Extra Strength) naproxen 500 mg tablet 500 mg PO BID PRN Pain 07/09/22 07/19/22 07/18/22 History Exam Exam Date and Time: July 16, 2022 143 Pertinent Lab Results Pertinent Lab Results: Laboratory Tests 02/16/22 06/05/22 08:27 09:55 WBC 6.0 Hgb 12.3 Hct 39.5 Plt Count 390 Sodium 139 Potassium 4.7 Chloride 102 Carbon Dioxide 28 BUN 17 H Creatinine 0.95 Assessment and Plan Assessment Anesthesia Assessment: Chart Reviewed Documented by User: Conchita Aguirre MD 07/19/22 08:35 [facility] Past Medical History Medical History Anemia Bilateral primary osteoarthritis of knee Diabetes mellitus with hyperglycemia, without long-term current use of insulin Fibromyalgia Generalized anxiety disorder HTN (hypertension) Osteoarthritis Postmenopause Varicose veins of left lower extremity with pain Family History Family History Father Myocardial infarction Cancer of prostate Substance use disorder Mother HTN (hypertension) Diabetes mellitus Maternal Grandmother HTN (hypertension) Daughter No problems noted. Daughter No problems noted. Daughter No problems noted. Daughter No problems noted. Sister No problems noted. Sister No problems noted. Sister No problems noted. Sister No problems noted. Brother No problems noted. Brother No problems noted. Brother No problems noted. Brother No problems noted. Brother Substance use disorder Brother No problems noted. Brother No problems noted. Family history of problems with anesthesia: No Surgical History Surgical History H/O arthroscopy of left knee History of inguinal herniorrhaphy History of Problems with Anesthesia: No Social History Social History (Updated 07/16/22 @ 08:56 by KELVIN Crow) Housing: Apartment Alcohol intake: never Patient Tobacco Use Status: Never used Tobacco Tobacco use type: Cigarette Years Smoked: pt tried 48 years ago e-Cigarette/Vaping Use: Never Used Second Hand Smoke Exposure: No Use of substances other than those prescribed or required for medical reasons: No Are you DNR?: No Advance Directives: No Advance Directives Information Provided: Yes Advance Directives on File: No service: No Current occupational status: disabled 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 Current occupational exposures/hazards: No Cognitive needs: No Hearing needs: No Vision needs: No Meds Allergies Allergy/AdvReac Type Severity Reaction Status Date / Time No Known Allergies Allergy Verified 07/16/22 08:55 [No Known Allergies*] Home Medications Medication Instructions Recorded Confirmed Last Taken Type cholecalciferol (vitamin D3) 50 50 mcg PO DAILY 05/13/20 07/19/22 07/18/22 History mcg (2,000 unit) capsule acetaminophen 500 mg tablet 500 mg PO Q6H PRN Pain 06/09/21 07/19/22 07/17/22 History (Tylenol Extra Strength) naproxen 500 mg tablet 500 mg PO BID PRN Pain 07/09/22 07/19/22 07/18/22 History Exam Airway Mallampati Class: II TM Dist: >3cm Neck ROM: Full Denture: Upper and Lower Heart: rrr Lungs: cta Assessment and Plan Assessment Anesthesia Assessment: Anesthesia Plan Discussed Final Anesthetic Review Family History of Problems with Anesthesia: No History of Problems with Anesthesia: No NPO: Yes ASA Class: III Final Preanesthetic Review: No Changes in Pt Med Stat, Meds/Allgs Chart Reviewed and Consent Obtained/Reviewed Patient Risk: Intermediate Anesthetic Plan Anesthetic Plan: GA and Regional Block Disposition: Standard PACU
[2022-07-19] VITALS (12 sets, daily range): BP systolic 142–193; BP diastolic 60–97; PULSE 63–81; RESP 12–18; TEMP 36.1–37; O2SAT 96–100; BMI 29.9
--- NOTE | ~2022-07-19 | FL_ITS ---
EXAMINATION: XR FLUOROSCOPY WITH IMAGES CLINICAL INFORMATION: Fracture distal radius. COMPARISON: None available. TECHNIQUE: Fluoroscopy Supervised By: Dr. Modesta Bray. Fluoroscopy Time: 22.96. Cumulative Dose: 0.6784 mGy. DAP: 0.0410 Gycm2. Images: 3. FINDINGS: There are 3 digital images obtained of left distal forearm with stabilized distal radial fracture with volar plate and screws in satisfactory alignment. No additional fracture seen. There is no angulation. FL/FL guidance in OR IMPRESSION: Stabilized distal radial fracture with volar plate and screws in satisfactory alignment.
[2022-07-19 06:27] LABS: Glucose, Whole Blood 146 mg/dL (60-115)
[2022-07-19] MEDS: Lactated Ringers 1,000 ML 100 ML IVCONT (06:31)
--- NOTE | 2022-07-19 08:00 | MHC.SHP ---
Pre-Procedural Eval Section A Date of Service: 07/19/22 The patient is an INPATIENT: No Changes since office visit: No Cold of Flu in the past 2 weeks, No New Medical Problems, No Changes in Medication and No Patient answered all questions The History & Physical has been completed within 30 days and I have reviewed it.: Yes Section B Chief Complaint: Unspecified fracture of the lower end of left radi Allergies: Allergies Allergy/AdvReac Type Severity Reaction Status Date / Time No Known Allergies Allergy Verified 07/16/22 08:55 [No Known Allergies*] Plan I have reviewed the history and physical and performed a pertinent physical examination on my patient. No changes have occurred unless specified. Time Spent With Patient Time: Total time managing care of this patient today ____ minutes.
--- NOTE | 2022-07-19 08:03 | P.OP_ITS ---
Operative Note Operative Note Date of Service: 07/19/22 Narrative: Operative Note Narrative: Preop diagnosis: 1. Left Distal radius fracture Postop diagnosis: Same Procedure: 1. Left Distal radius fracture open reduction internal fixation Surgeon: Modesta Bray MD Anesthesia: General anesthesia plus regional block Findings: Fairly distal transverse distal radius fracture, extra-articular Implants: A 3 hole Accu Med volar locking plate, with 4x 2.3 mm locking pe gs/screws, and 3 3.5 mm cortical screws Tourniquet time: 59 minutes EBL: 5.0 ml Specimen: None Drains: None Complications: None Disposition: Brought to the recovery room in stable condition Plan: Follow-up in 10-14 days for wound check, suture removal and postop radiographs The patient will be placed in either a a volar wrist splint. Encouraged no lifting of anything heavier than a cell phone. Please encourage active and passive range of motion of the digits. Follow-up at 4-5 weeks postop for repeat radiographs. Indications: The patient is a 62 year old woman with a displaced left distal radius fracture . The risks and benefits of operative treatment, including but not limited to risk of damage to blood vessels, nerves, tendons, infection, recurrence, persistent pain or numbness, incomplete resolution of preoperative symptoms, or need for further surgery were discussed with the patient and they wished to proceed with surgery. Procedure: Once consent was obtained patient was brought back to the operating suite and placed in the operating table in a supine position. A regional block was performed by the anesthesia team. Perioperative antibiotics and anesthesia was administered by the anesthesia team. A tourniquet was applied to the proximal aspect of the left upper extremity and the limb was prepped and draped in a standard surgical fashion. The limb was elevated exsanguinated with Esmarch bandage and the tourniquet inflated to 250 mm of mercury for a total tourniquet time of 59 minutes. The FluoroScan was used throughout the case to assess our reduction, and facilitate implant placement. A gentle closed reduction was 1st performed on the patient's left distal radius fracture. Was assessed radiographically before proceeding with the reduction internal fixation. I then made an 8 cm longitudinal incision over the distal aspect of the flexor carpi radialis tendon. The incision was made through the skin to the subcutaneous tissue using a 15. Blade. Then carefully dissected down to flexor carpi radialis tendon she tenotomy scissors. The FCR tendon sheath was then incised longitudinally using tenotomy scissors under direct visualization. The FCR tendon was then retracted ulnarly. I then made a longitudinal incision in the volar forearm fascia through the floor of FCR tendon sheath using tenotomy scissors under direct visualization. I identified the interval between the radial artery and the flexor tendons. This interval was developed further with my index finger, releasing some of the muscular fibers of the flexor pollicis longus. A dull weatlander retractor was then placed. I then created an ulnarly based flap of the pronator quadratus by releasing the radial and distal edges using a 15. Blade. A Gaona elevator was used to elevate the pronator quadratus from the volar surface of the distal radius. This then revealed to us our distal radius fracture. An open reduction was then performed on our distal radius fracture. I then placed a short narrow 3 hole Accu Med volar locking plate on the volar surface of the distal radius. I placed a single K-wire through the distal aspect of the plate and into the distal radius. This was assessed using fluoroscopic images. I was satisfied with the placement of our plate. I then placed 4x 2.3 mm locking screws/pegs in the distal aspect of the plate and distal radius by 1st drilling bicortically with a 2.0 mm drill bit, measuring with a depth gauge, and placing the appropriate length locking screws/pegs. The placement of our plate and screws was then assessed again using fluoroscopic images. The once satisfied with the placement of the volar locking plate and screws on the distal aspect of the distal radius, the plate was then reduced to the shaft of the radius. I then placed 3 3.5 mm cortical screws to the proximal aspect of the plate and into the shaft of the radius. This was done by 1st drilling bicortically with a 2.8 mm drill bit, measuring with a depth gauge, and placing the appropriate length screw. Final radiographs were then obtained. The DRUJ was assessed and found to be stable on exam. I was satisfied with our reduction and placement of all implants. At this point the wound was irrigated with normal saline. The tourniquet was then deflated and hemostasis was obtained with a brief period of local pressure and bipolar monopolar electrocautery. The subcutaneous layer was then reapproximated using some 4-0 Vicryl suture, and the skin edges were reapproximated using some 5 0 Prolene suture. The wound was then infiltrated with some 0.5% plain ropivacaine for postop pain control. A sterile dressing and a short dorsal splint allowing for active flexion and extension of the digits was applied. The patient appears to have tolerated the procedure well and with no complications. All digits were well vascularized conclusion of the case.
[2022-07-19] MEDS: oxyCODONE HCl Immed Release 5 MG TABLET PO (10:05)
[2022-07-19] MEDS: fentaNYL citrate/PF 100 MCG/2 ML VIAL 25 MCG IVPUSH ×3 (10:05→10:18)
== END 2022-07-19 11:20 | disposition home or self-care (01) ==
PROVIDERS: PCP Internal Medicine; Visit Provider Orthopaedic Surgery
PROC: (CPT 25525; principal; 2022-07-19 07:30)
DX: S52.552A Other extraarticular fracture of lower end of left radius, initial encounter for closed fracture (principal); W00.0XXA Fall on same level due to ice and snow, initial encounter; Y93.01 Activity, walking, marching and hiking; Y92.9 Unspecified place or not applicable; Y99.8 Other external cause status; M79.7 Fibromyalgia; D64.9 Anemia, unspecified; M19.90 Unspecified osteoarthritis, unspecified site; I10 Essential (primary) hypertension; E11.65 Type 2 diabetes mellitus with hyperglycemia; Z79.84 Long term (current) use of oral hypoglycemic drugs; Z79.899 Other long term (current) drug therapy
CPT/HCPCS: 25525; 82947; C1713; C1769; J0690; J1100; J2250; J2405; J2795; J3010

== ENCOUNTER 2022-08-03 10:16 | Outpatient (REF) | payer MEDICARE, SELFPAY ==
--- NOTE | ~2022-08-03 | XR_ITS ---
EXAMINATION: XR WRIST, LEFT CLINICAL INFORMATION: Pain left wrist COMPARISON: Left hand/wrist 07/14/2022. TECHNIQUE: PA, lateral, and oblique views of the left wrist. FINDINGS: There is interval volar plate and screws stabilizing distal radial fracture in alignment. The fracture line is visualized and unchanged to previous exam. XR/XR wrist LT min 3V IMPRESSION: Interval volar plate and screws stabilizing distal radial fracture in alignment. The fracture line is still visualized.
== END 2022-08-03 10:17 | disposition home or self-care (01) ==
LOC: HO.HOSX 10:16
PROVIDERS: Visit Provider Orthopaedic Surgery
DX: S52.502D Unspecified fracture of the lower end of left radius, subsequent encounter for closed fracture with routine healing (principal)
CPT/HCPCS: 73110

== ENCOUNTER 2022-08-23 13:34 | Outpatient (REF) | payer MEDICARE, SELFPAY | END 2022-08-23 13:35 | disposition home or self-care (01) | LOC: HO.HOSX 13:34 | PROVIDERS: Visit Provider Orthopaedic Surgery | DX: Z13.89 Encounter for screening for other disorder (principal) ==

== ENCOUNTER 2022-08-24 | Outpatient (REF) | payer OTHER, SELFPAY ==
--- NOTE | ~2022-08-24 | XR_ITS ---
EXAMINATION: XR WRIST, LEFT CLINICAL INFORMATION: Fracture COMPARISON: Left wrist 08/24/2022 TECHNIQUE: PA, lateral, and oblique views of the left wrist. FINDINGS: Plate and screws transfixing distal radius fracture. Orthopedic hardware appears unchanged. Fracture line still evident. Alignment unchanged. No other fracture. Old degenerative change of the triscaphe joint. Mild dorsal soft tissue swelling, decreased from 08/24/2022. XR/XR wrist LT min 3V IMPRESSION: ORIF of distal radius fracture. No hardware complication.
== END 2022-08-24 00:01 | disposition home or self-care (01) ==
LOC: HO.HOSX
PROVIDERS: Visit Provider Orthopaedic Surgery
DX: M25.532 Pain in left wrist (principal)
CPT/HCPCS: 73110

== ENCOUNTER → 2022-08-24 10:22 | Outpatient (BNVA) | payer MEDICARE, SELFPAY | PROVIDERS: PCP Internal Medicine; Visit Provider Orthopaedic Surgery | DX: S52.502D Unspecified fracture of the lower end of left radius, subsequent encounter for closed fracture with routine healing (principal) | CPT/HCPCS: 73110; 99212 ==

== ENCOUNTER 2022-08-28 08:55 | Outpatient (REF) | payer OTHER, SELFPAY ==
[2022-08-28 11:26] LABS: Vitamin D 25-OH Total 47.6 ng/mL (>30)
[2022-08-28 11:31] LABS: Alanine Aminotransferase 16 U/L (0-31); Anion Gap 14 (12-20); Aspartate Amino Transferase 19 U/L (5-31); Blood Urea Nitrogen 18 mg/dL (9-16); Calcium 9.2 mg/dL (8.4-10.2); Carbon Dioxide 26 mmol/L (22-29); Chloride 105 mmol/L (96-108); Cholesterol 148 mg/dL; Estimated Glomerular Filt Rate 55; Glucose Fasting 119 mg/dL (60-99); HDL Cholesterol 38 mg/dL; Potassium 4.8 mmol/L (3.3-5.1); Sodium 140 mmol/L (135-145)
[2022-08-28 11:43] LABS: Estimated Average Glucose 148 mg/dL; Hemoglobin A1c % 6.8 %
[2022-08-28 16:03] LABS: LDL Cholesterol Calculated 80 mg/dl; Triglycerides 152 mg/dL
== END 2022-08-28 08:56 | disposition home or self-care (01) ==
LOC: HO.LAB 08:55
PROVIDERS: PCP Internal Medicine; Visit Provider Internal Medicine
DX: E11.65 Type 2 diabetes mellitus with hyperglycemia (principal); E66.01 Morbid (severe) obesity due to excess calories; F41.1 Generalized anxiety disorder; I10 Essential (primary) hypertension
CPT/HCPCS: 36415; 80048; 80061; 82306; 83036; 84450; 84460

== ENCOUNTER 2022-09-22 09:17 | Outpatient (REF) | payer OTHER, SELFPAY ==
--- NOTE | ~2022-09-22 | XR_ITS ---
EXAMINATION: XR WRIST, LEFT CLINICAL INFORMATION: Pain COMPARISON: Previous x-rays most recent July 2022 TECHNIQUE: PA, lateral, and oblique views of the left wrist. FINDINGS: There is a plate and screws transfixing the left distal radius fracture. Orthopedic hardware appears unchanged. Fracture line is still seen. There is some bony callus formation seen. Alignment is unchanged. No other fracture. Mild arthritis at the first [facility] and trapezoid trapezium scaphoid joints with small osteophytes. Mild soft tissue swelling. XR/XR wrist LT min 3V IMPRESSION: ORIF of left distal radius fracture.
== END 2022-09-22 09:18 | disposition home or self-care (01) ==
LOC: HO.HOSX 09:17
PROVIDERS: Visit Provider Orthopaedic Surgery
DX: S52.502D Unspecified fracture of the lower end of left radius, subsequent encounter for closed fracture with routine healing (principal)
CPT/HCPCS: 73110; 99212

== ENCOUNTER 2022-12-10 07:25 | Outpatient (REF) | payer OTHER, SELFPAY ==
[2022-12-10 08:43] LABS: Alanine Aminotransferase 12 U/L (0-31); Anion Gap 13 (12-20); Aspartate Amino Transferase 15 U/L (5-31); Blood Urea Nitrogen 18 mg/dL (9-16); Calcium 9.2 mg/dL (8.4-10.2); Carbon Dioxide 28 mmol/L (22-29); Chloride 104 mmol/L (96-108); Cholesterol 100 mg/dL; Estimated Glomerular Filt Rate 58; Glucose Fasting 110 mg/dL (60-99); HDL Cholesterol 38 mg/dL; LDL Cholesterol Calculated 42 mg/dl; Potassium 4.5 mmol/L (3.3-5.1); Sodium 140 mmol/L (135-145); Triglycerides 104 mg/dL
[2022-12-10 08:52] LABS: Estimated Average Glucose 137 mg/dL; Hemoglobin A1C 150.3136 umol/L; Hemoglobin A1c % 6.4 %
== END 2022-12-10 07:26 | disposition home or self-care (01) ==
LOC: HO.LAB 07:25
PROVIDERS: PCP Internal Medicine; Visit Provider Internal Medicine
DX: E66.01 Morbid (severe) obesity due to excess calories (principal); I10 Essential (primary) hypertension; E11.9 Type 2 diabetes mellitus without complications
CPT/HCPCS: 36415; 80048; 80061; 83036; 84450; 84460

== ENCOUNTER 2022-12-16 08:52 | Outpatient (AMB) | payer OTHER, SELFPAY ==
--- NOTE | 2022-12-16 08:55 | A.OFFPC_ITS ---
Vital Signs 12/16/22 08:56 Height 4 ft 8 in Weight 193 lb BMI 43.3 BP 126/80 Blood Pressure Location Lt brachial Position Sitting Pulse 75 Pulse Source Pulse Oximeter Pulse Oximetry (%) 98 Oxygen Delivery Method Room Air Intake Visit Reasons: Annual PE Intake Note: Patient here for Annual pE and would like to talk about pain in right shoulder that has been present for about a month or so. Last Mammo: 2021 Post menopausal: Yes Allergies No Known Allergies [No Known Allergies*] Allergy (Verified 12/16/22 09:14) Medication List - Last Reconciled 12/16/22 by Praveena Denton MD acetaminophen (Tylenol Extra Strength) 500 mg PO Q6H PRN blood sugar diagnostic (FreeStyle Lite Strips) check fasting glucose qd ac blood-glucose meter (FreeStyle [place] Lite kit) check fasting glucose qd ac cholecalciferol (vitamin D3) 50 mcg PO DAILY citalopram 20 mg PO DAILY ibuprofen 600 mg PO Q6-8H PRN lancets (FreeStyle Lancets) As directed lisinopril 10 mg PO QAM metformin 500 mg PO DAILY 3 months naproxen 500 mg PO DAILY PRN rosuvastatin 5 mg PO 3XW 3 months triamcinolone acetonide 0.025% 1 appl topical DAILY 10 days Tobacco use date assessed: 09/10/22 Dental Screening Dental Screen Date: 12/16/22 Did you have a dental visit in the last 12 months?: No Did you have a dental problem in the last 6 months where you did not have access to dental care?: No Was dental information given to patient?: No HPI Annual PE HPI Details 62-year-old lady with diabetes mellitus, hypertension, generalized anxiety disorder, morbid obesity and history of tubular adenoma of colon, here today for physical exam. She has been compliant with taking her medications and states that she has been very active exercises regularly pain. She has history of a left wrist fracture, has been using more for right arm and now complains of pain on anterior and posterior aspect of right shoulder specially on doing overhead motion and carrying anything with her right hand. Has been taking Tylenol which affords no much pain relief. She is due for screening colonoscopy has had a tubular adenoma and hyperplastic polyp removed on last colonoscopy in 2019, due for a recheck. She had cervical cancer screening done in 2019 with negative findings, and had her screening mammogram done January 2022, has an appointment already scheduled for 02/03/2023 for repeat mammogram. She has had COVID vaccines but has not yet had her booster, has had her pneumonia vaccine, shingles vaccine gets yearly flu shots and up-to-date with her Tdap. Has been getting more frequent anxiety attacks due to brother moving in with her which was supposed to be only temporary. Now the rest of his family moved in with him from [place] and they are still currently looking for their own apartment. In the meantime, patient states that it has disrupted her own day-to-day schedule, which is making her more anxious. [facility] Medical History (Updated 12/16/22 @ 09:57 by Praveena Denton MD) Bilateral primary osteoarthritis of knee Fibromyalgia Generalized anxiety disorder HTN (hypertension) Osteoarthritis Pain of right shoulder joint on movement Painful arc syndrome of left shoulder Postmenopause Tubular adenoma of colon Type 2 diabetes mellitus without complication, with no history of insulin use Surgical History H/O arthroscopy of left knee History of inguinal herniorrhaphy Family History Father Myocardial infarction Cancer of prostate Substance use disorder Mother HTN (hypertension) Diabetes mellitus Maternal Grandmother HTN (hypertension) Daughter No problems noted. Daughter No problems noted. Daughter No problems noted. Daughter No problems noted. Sister No problems noted. Sister No problems noted. Sister No problems noted. Sister No problems noted. Brother No problems noted. Brother No problems noted. Brother No problems noted. Brother No problems noted. Brother Substance use disorder Brother No problems noted. Brother No problems noted. 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 1. Little interest or pleasure in doing things: several days 2. Feeling down, depressed, or hopeless: not at all 3. Trouble falling or staying asleep, or sleeping too much: more than half the days 4. Feeling tired or having little energy: several days 5. Poor appetite or overeating: not at all 6. Feeling bad about yourself - or that you are a failure or have let yourself or your family down: not at all 7. Trouble concentrating on things, such as reading the newspaper or watching television: not at all 8. Moving or speaking so slowly that other people could have noticed. Or the opposite - being so fidgety or restless that you have been moving around a lot more than usual: not at all 9. Thoughts that you would be better off or of hurting yourself in some way: not at all Total score: 4 Depression Screening Interpretation: Negative 89671 - PHQ-9 Billing: Yes Source: Developed by Drs. Les Raya, Nelli Barton, Margarito Hong and colleagues, with an educational heydi from [employer]. Thrive Questionnaire Date Thrive assessed: 09/10/22 I am a: Patient What is your living situation today?: I have a steady place to live Within the past 12 months, did the food you bought not last and you didn't have the money to get more?: Never true Within the past 12 months, did you worry whether your food would run out before you got money to buy more?: Never true Do you have trouble paying for medicines?: No Do you have trouble getting transportation to medical appointments?: No Do you have trouble paying your heating and electricity bill?: No Do you have trouble taking care of your child, family member or friend?: No Do you have trouble with day-to-day activities such as bathing, preparing meals, shopping, managing finances, etc.?: No Are you currently unemployed and looking for a job?: No Are you interested in more education?: No AUDIT C Alcohol Use Questionnaire (AUDIT-C) 1. How often do you have a drink containing alcohol?: Never Total Score: 0 NORBERTO-7 AMB Questionnaire NORBERTO-7 Date NORBERTO - 7 assessed: 09/10/22 Feeling nervous, anxious, or on edge: 1 = Several days Not being able to stop or control worryin = More than half the days Worrying too much about different things: 2 = More than half the days Trouble relaxin = Several days Being so restless that it is hard to sit still: 0 = Not at all Becoming easily annoyed or irritable: 1 = Several days Feeling afraid as if something awful might happen: 0 = Not at all Total NORBERTO-7 score (0-4 normal; 5-9 mild; 10-14 moderate; 15-21 severe): 7 Source: Developed by Drs. Les Raya, Nelli Barton, Margarito Hong and colleagues, with an educational heydi from [employer]. NORBERTO-7 Assessment Billing NORBERTO-7 Assessment Tool: NORBERTO-7 Assessment 10591 Review of Systems Const Reports as per HPI, Denies fatigue, Denies headache(s), Denies weakness and Reports weight gain Eyes Details: Has appointment scheduled to see an eye doctor in [place], per patient Denies change in vision ENT Reports Normal hearing present, Denies dysphagia, Denies vertigo, Denies dizziness, Denies ear discharge, Denies otalgia, Denies headache(s), Denies nasal congestion and Denies sore throat Card Denies chest pain, Denies lightheadedness, Denies palpitations and Denies dyspnea Resp Denies chest congestion, Denies cough, Denies dyspnea and Denies wheezing GI Denies abdominal pain, Denies change in bowel habits, Denies dysphagia and Denies heartburn Denies hematuria, Denies urinary frequency, Denies dysuria and Denies urinary urgency Musc Reports as per HPI Skin/Breast Denies breast skin changes, Denies breast pain, Denies breast mass, Denies change in breast shape, Denies lesions and Denies rash Neuro Reports Normal hearing present, Denies vertigo, Denies dizziness, Denies headache(s), Denies Sensory deficit (Neuro) and Denies weakness Psych Reports as per HPI Endo Denies fatigue, Denies polydipsia, Denies polyuria and Denies palpitations Spencer/Lymph Denies easy bruising Aller/Immun Denies seasonal rhinorrhea and Denies wheezing Physical exam (Primary Care) Vital Signs: Last Vital Signs Pulse 75 12/16/22 08:56 BP 126/80 08/17/23 08:56 Pulse Ox 98 12/16/22 08:56 Oxygen Delivery Method Room Air 12/16/22 08:56 BMI result Body Mass Index 43.3 BMI Assessment/Plan discussion: High BMI High, discussed plan: lifestyle, weight reduction, dietary and physical activity Tobacco/Smoking Status: Tobacco use Status Tobacco use date assessed 09/10/22 12/16/22 09:01 Patient Tobacco Use Status Never used Tobacco 12/16/22 09:01 Tobacco use type Cigarette 12/16/22 09:01 e-Cigarette/Vaping Use Never Used 12/16/22 09:01 Depression Screening Interpretation: Negative Thrive Assessment: Date of Thrive Assessment Date Thrive assessed 09/10/22 12/16/22 09:01 Advance Care Planning discussion: Completed/Scanned Date of discussion: 12/16/22 Who was present: Patient Forms completed: Health Care Proxy and MOLST Time spent: 16-45 minutes Actual minutes spent: 16 Const General: no acute distress Nutritional Appearance: obese morbidly obese Orientation/consciousness: patient oriented x3 HENMT Head: Yes normal to inspection and Yes normocephalic Ears: external ears normal, TM's normal bilaterally and EAC's normal General nose exam: Normal external nose present Face and sinus: Yes face symmetric Mouth: tongue normal, oropharynx normal and moist mucous membranes Eyes Conjunctivae: conjunctivae normal Sclerae: sclerae normal Pupils: Equal, round and reactive pupils present EOM: EOMs intact bilaterally Neck Neck: Yes full ROM and Yes no lymphadenopathy Thyroid: Thyroid normal Chest Chest palpation & inspection: normal inspection of the chest Breast/axilla palpation: normal palpation of the breasts and normal palpation of the axillae Resp Effort & Inspection: normal respiratory effort and able to speak in complete sentences Auscultation: clear to auscultation bilaterally Cardio Rate: regular rate Rhythm: regular rhythm Heart sounds: S1 normal heart sound present and S2 normal heart sound present GI Inspection: Yes obesity Palpation (GI): Soft to palpation, nontender, no guarding and no masses Auscultation: normal bowel sounds General: Yes no CVA tenderness Back/Spine/Pelvis Back: no CVA tenderness Skin Other: Scattered hyperpigmented skin tags on anterior neck Neuro General: patient oriented x3 Cranial nerves: Yes Equal, round and reactive pupils present and Yes Normal hearing present Gait exam (Neuro): Normal gait present Motor exam (neuro): 5/5 motor strength present throughout Sensory Exam: No Sensory deficit (Neuro) Extrem General: Yes normal to inspection, Yes full ROM, Yes no joint enlargement, Yes no clubbing, cyanosis or edema, Yes no calf tenderness and Yes normal gait Psych Appearance: grossly normal and well kempt Mental Status: mental status grossly normal Speech and movement: Normal speech and movement present Affect: normal affect Attitude: cooperative Thought process: Normal thought process present Thought content: Normal thought content present Results Reviewed Results Reviewed: ENTERED: 12/10/[address]: ORDERED: Met Prof Fast, AST, ALT, Lipid Panel Test Result Flag Reference Site Sodium 140 135-145 mmol/L Potassium 4.5 3.3-5.1 mmol/L CL 104 96-108 mmol/L CO2 28 22-29 mmol/L Gap 13 12-20 BUN 18 H 9-16 mg/dL Creat 0.97 0.5-1.4 mg/dL EGFR 58 NOTE: For -[place] individuals, multiply the result by 1.210. Chronic Kidney Disease: Estimated GFR < 60 mL/min/1.73m2 Severe Kidney Disease: Estimated GFR < 15 mL/min/1.73m2 FBS 110 H 60-99 mg/dL A fasting glucose from 100-125 mg/dl is considered impaired (pre-diabetes). CA 9.2 8.4-10.2 mg/dL AST (GOT) 15 5-31 U/L ALT (GPT) 12 0-31 U/L Triglyceride 104 mg/dL Desirable Triglyceride: less than 150 mg/dL Borderline High Triglyceride 150-199 mg/dL High Triglyceride: 200-499 mg/dL Very High Triglyceride: greater than or equal to 5OO mg/dL Chol 100 mg/dL Desirable Cholesterol: less than 200 mg/dL Borderline High Cholesterol: 200-239 mg/dL High Cholesterol: greater than 239 mg/dL LDL Calculated 42 mg/dl Desirable LDL: less than 100 mg/dL Near Optimal/Above Optimal LDL: 110-129 mg/dL Borderline High LDL: 130-159 mg/dL High LDL: 160-189 mg/dL Very High LDL: greater than or equal to 190 mg/dL HDL 38 mg/dL Desirable HDL: greater than 40 mg/dL Note: This HDL assay may give artificially low results in patients with liver disease. Laboratory Tests 12/10/22 07:33 Estimat Average Glucose 137 Hemoglobin A1c % 6.4 Assessment and Plan Assessment & Plan (1) Annual visit for general adult medical examination with abnormal findings: Code(s): Z00.01 - Encounter for general adult medical examination with abnormal findings Plan: Reviewed recent fasting labs with patient, with hemoglobin A1c, and lipids, lytes within normal limits. Recommended dental visit every 6 months and regular eye exams, yearly for her diabetes retinopathy screening, states that she has appointment with an quality engineer in [place] already scheduled.. Take adequate calcium in diet and vitamin-D 3 at 2000 IU per cap once a day, in addition to weight-bearing exercises to help maintain good muscle tone and weight control. Instructed to do self-breast exam, and recommended to get yearly mammogram, has appointment already scheduled for 02/03/2023 for screening mammogram. She is up-to-date with all her vaccinations, but has not yet had her COVID booster, reminded to schedule appointment at the pharmacy . Reminded to get yearly flu shots. She is due for repeat colonoscopy this year, referral ordered (2) Type 2 diabetes mellitus without complication, with no history of insulin use: Code(s): E11.9 - Type 2 diabetes mellitus without complications Plan: Recent lab results reviewed with patient, with sugar and hemoglobin A1c stable and at goal. Continue with metformin 500 mg once a day, continue to check fasting blood sugar at home, maintain log and bring to next appointment for review. Reinforced diabetic diet and regular exercise with patient. Lipids within normal limits, continued on rosuvastatin 5 mg taken 3 times a week Counseled regarding importance of yearly diabetes retinopathy screening, patient already made an appointment to see an eye doctor in [place], take reminded to get consult report sent back to me. Patient advised to inspect feet daily, for any signs of injury, callus or infection. Compliance with diet and regular exercise again stressed. Cervical cancer screening done in 2019 will repeat another 1 a next year's physical exam. Blood pressure goal is less than 130/80, goal LDL is less than 100 and goal hemoglobin A1c is less than 7% follow-up appointment made in--3-months, after fasting labs done. (3) HTN (hypertension): Code(s): I10 - Essential (primary) hypertension Plan: Blood pressure at goal of less than 130/80. Continue with lisinopril 10 mg daily. Reinforced importance of following a low sodium diet, getting regular exercise, and lowering stress levels. (4) Morbid obesity: Code(s): E66.01 - Morbid (severe) obesity due to excess calories Plan: Discussed need to increase activity and wt reduction. Recommended focusing on improving your health instead of dieting. : Eat Mediterranean diet, limit foods high in fat, sugar, and calories, eat slowly, pay attention to portion sizes, plan your meals ahead of time, start regular physical activity 150 minutes of moderate intensity exercise or 90 minutes/week of vigorous exercise and increase water intake. (5) Generalized anxiety disorder: Code(s): F41.1 - Generalized anxiety disorder Plan: Continue with citalopram 20 mg daily, patient states that she is able to control her anxiety attacks, declines refer for counseling. (6) Pain of right shoulder joint on movement: Code(s): M25.511 - Pain in right shoulder Plan: Referred to physical therapy (7) Advanced directives, counseling/discussion: Code(s): Z71.89 - Other specified counseling Plan: Initiated the conversation about Advanced Directives. Advanced Directives help patients prepare for current and future decisions about their medical treatment and place of care. Discussed with patient that it is a process where a patients current condition and prognosis are reviewed, their wishes for information regarding their illness are elicited, and likely medical dilemmas are presented and options discussed. MOLST form and healthcare proxy form completed today. These forms can be amended as needed, reviewed yearly and make changes as needed Orders: Orders PT Evaluation and Treatment Today M25.511 - Pain in right shoulder Alanine Aminotransferase 3 Months E11.9 - Type 2 diabetes mellitus without complications, E66.01 - Morbid (severe) obesity due to excess calories, I10 - Essential (primary) hypertension, Z78.0 - Asymptomatic menopausal state Aspartate Amino Transferase 3 Months E11.9 - Type 2 diabetes mellitus without complications, E66.01 - Morbid (severe) obesity due to excess calories, I10 - Essential (primary) hypertension, Z78.0 - Asymptomatic menopausal state Hemoglobin A1c 3 Months E11.9 - Type 2 diabetes mellitus without complications, E66.01 - Morbid (severe) obesity due to excess calories, I10 - Essential (primary) hypertension, Z78.0 - Asymptomatic menopausal state Lipid Panel 3 Months E11.9 - Type 2 diabetes mellitus without complications, E66.01 - Morbid (severe) obesity due to excess calories, I10 - Essential (primary) hypertension, Z78.0 - Asymptomatic menopausal state Vitamin D 25-OH Total 3 Months E11.9 - Type 2 diabetes mellitus without complications, E66.01 - Morbid (severe) obesity due to excess calories, I10 - Essential (primary) hypertension, Z78.0 - Asymptomatic menopausal state Basic Metabolic Panel Fasting 3 Months E11.9 - Type 2 diabetes mellitus without complications, E66.01 - Morbid (severe) obesity due to excess calories, I10 - Essential (primary) hypertension, Z78.0 - Asymptomatic menopausal state Referrals Gastroenterology Referral D12.6 - Benign neoplasm of colon, unspecified, Z12.11 - Encounter for screening for malignant neoplasm of colon Coding Level of Care Code Est Pt Prev Care 40-64y(60486) Diagnoses Annual visit for general adult medical examination with abnormal findings Z00.01 Type 2 diabetes mellitus without complication, with no history of insulin use E11.9 HTN (hypertension) I10 Morbid obesity E66.01 Generalized anxiety disorder F41.1 Pain of right shoulder joint on movement M25.511 Advanced directives, counseling/discussion Z71.89 Additional Codes Vital Signs *Quality* - Advance Care Planning discussion: Completed/Scanned ([id number]) Vital Signs *Quality* - Time spent: 16-45 minutes ([id number]) NORBERTO-7 Assessment Billing - NORBERTO-7 Assessment Tool: NORBERTO-7 Assessment 30299 ([id number])
[2022-12-16 08:56] VITALS: BP 126/80; PULSE 75; O2SAT 98; BMI 43.3
== END 2022-12-16 09:44 | disposition home or self-care (01) ==
PROVIDERS: Visit Provider Internal Medicine
DX: Z00.00 Encounter for general adult medical examination without abnormal findings (principal); E11.9 Type 2 diabetes mellitus without complications; E66.01 Morbid (severe) obesity due to excess calories; Z68.41 Body mass index [BMI] 40.0-44.9, adult; I10 Essential (primary) hypertension; F41.1 Generalized anxiety disorder; M25.511 Pain in right shoulder; Z71.89 Other specified counseling
CPT/HCPCS: 99396; 99497

== ENCOUNTER 2023-02-03 08:31 | Outpatient (REF) | payer OTHER, SELFPAY | END 2023-02-03 08:32 | disposition home or self-care (01) | LOC: HO.MAMMO 08:31 | PROVIDERS: PCP Internal Medicine; Visit Provider Internal Medicine | DX: Z12.31 Encounter for screening mammogram for malignant neoplasm of breast (principal) | CPT/HCPCS: 77063; 77067 ==

== ENCOUNTER → 2023-02-03 08:45 | Outpatient (BNV) | payer OTHER, SELFPAY | PROVIDERS: PCP Internal Medicine; Visit Provider Radiology Diagnostic Radiology | DX: Z12.31 Encounter for screening mammogram for malignant neoplasm of breast (principal) | CPT/HCPCS: 77063; 77067 ==

== ENCOUNTER 2023-02-21 09:00 | Outpatient (RCR) | payer OTHER, SELFPAY ==
--- NOTE | 2023-01-28 10:30 | MHC.PT.EP ---
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 SHE DEFERRED Rt SH INJECTION. OBJECTIVELY, DECR POSTURAL AWARENESS, LIMITED AROM CERV LAT FLEX JUANITA & AROM Rt SH, (+) STRENGTH DEFICITS IN Rt SH COMPLEX/POSTERIOR RC, (-) MOTORSENSORY FINDINGS; TTP Rt TRAP/ SUPRASPIN/RHOMBOID/ TERES MM, CURRENTLY (-) INSTABILITY Rt SH, AND PAIN Rt SUPEROPOST -> Rt SCAP. 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 THE Pt WOULD BENEFIT FROM PT TO ADDRESS PAIN/ SX MGMT, IMPROVE POSTURE TO ENHANCE SHOULDER COMPLEX MECHANICS, AND DEV A HEP. Frequency and Duration: The patient will be seen 2 x WK x 5 WKS Short Term Goals: *DECREASE Rt SH/ SCAPULAR PAIN TO 2-3/10 AT MAX *IMPROVE POSTURAL AWARENESS W ADL SIMUL *IMPROVE Rt SH AROM *ENHANCE ACTIV OF SCAP / POST RC MM-> STRENGTHENING / STABILIZATION Quality Control Assessor Goals: *Pt INDEP W HEP AND SX MGMT *Pt'S Rt SH STRENGTH IMPROVED BY 1 GRADE *Pt RESUME REG ADLs EVIDENT W IMPROVED SPADI SCORE (AT EVAL 104/130) Treatment Plan: Modalities to reduce pain, spasms and effusion. Manual therapy to restore motion and function. Therapeutic exercise to improve strength and flexibility. Neuromuscular re-education for posture and balance. Therapeutic activities to return to functional activities of daily living. Electronically signed by: IVA PACHECO,PT Please sign and return to therapist. Thank you for your referral.
--- NOTE | 2023-02-21 12:09 | MHC.PT.DC ---
[facility] [place] Office [place] Office [place] Office [address] Yennifer Dominguez [address] [phone] F: [phone] F: [phone] F: [phone] F: [phone] Physical Therapy Discharge Report Diagnosis: RIGHT SHOULDER PAIN Date of Surgery: Date of Evaluation: 01/28/23 Date of Discharge: 02/21/23 Treatments to Date: 5 Cancellations to Date: 0 No Shows to Date: 0 Discharge Status: Achieved Goals Improved Function Independent with HEP Discharge Summary: THE Pt FEELS READY TO CONT ON HER OWN W HER HEP- SHE HAS BEEN ABLE TO RESUME HER REGULAR ADLs W/O ADVERSE RESPONSE FROM Rt SH-> SHE HAS WFL AROM, IMPROVED STRENGTH, AND INDEP W ADLs, WITHOUT LIMITATIONS FROM Rt SH; HER SPADI SCORE TODAY AT D/C IS 31/130 AND AT EVAL 104/130. SHE IS D/C'D THIS DATE W HER HEP. Electronically signed by: IVA PACHECO,PT Please sign and return to therapist. Thank you for your referral.
== END 2023-02-21 12:09 | disposition home or self-care (01) ==
LOC: HO.PT 09:00
PROVIDERS: PCP Internal Medicine; Visit Provider Internal Medicine
DX: M25.511 Pain in right shoulder (principal)
CPT/HCPCS: 97035; 97110; 97162; 97530

== ENCOUNTER 2023-03-22 13:17 | Outpatient (AMB) | payer OTHER, SELFPAY ==
--- NOTE | 2023-03-22 13:19 | A.OFFVIS_ITS ---
Intake Vital Signs 03/22/23 13:22 Height 4 ft 8 in Weight 191 lb 12.835 oz BMI 43.0 BP 144/84 H Blood Pressure Location Lt brachial Position Sitting Pulse 86 Intake Visit Reasons: Colonoscopy Screening Intake Note: Maria Elena presents in the office as a colonoscopy screening. CC: She states that she is not having any concerns today. [employer] Required: No Allergies No Known Allergies [No Known Allergies*] Allergy (Verified 03/22/23 13:22) HPI Colonoscopy Screening HPI Details 62 year old? female here today for pre c olonoscopy screening.? Patient was sent to us by her PCP.? Last colonoscopy 03/27/2018. Tubular adenoma found without high-grade dysplasia or carcinoma.? Patient denies any gastrointestinal symptoms in the past or at present.? Denies family history of gastrointestinal disease, colon polyps, or cancer.? Denies history of difficulty with sedation or anesthesia in the past.? Negative for history of sleep apnea.? Denies any history of cardiac, renal, pulmonary, or hepatic disease.?? No history of infectious? diseases like hepatitis A, B, C, HIV or tuberculosis.? Patient is not on any anticoagulation therapy. [facility] Medical History (Updated 03/22/23 @ 13:34 by Yahaira Archibald, [facility]) Tubular adenoma of colon Pain of right shoulder joint on movement Type 2 diabetes mellitus without complication, with no history of insulin use Painful arc syndrome of left shoulder Generalized anxiety disorder Postmenopause Bilateral primary osteoarthritis of knee Osteoarthritis HTN (hypertension) Fibromyalgia Surgical History (Updated 03/22/23 @ 13:23 by FELIPA Crook) Hx of colonoscopy History of inguinal herniorrhaphy H/O arthroscopy of left knee Family History Father Myocardial infarction Cancer of prostate Substance use disorder Mother HTN (hypertension) Diabetes mellitus Maternal Grandmother HTN (hypertension) Daughter No problems noted. Daughter No problems noted. Daughter No problems noted. Daughter No problems noted. Sister No problems noted. Sister No problems noted. Sister No problems noted. Sister No problems noted. Brother No problems noted. Brother No problems noted. Brother No problems noted. Brother No problems noted. Brother Substance use disorder Brother No problems noted. Brother No problems noted. 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 Current occupational exposures/hazards: No Cognitive needs: No Hearing needs: No Vision needs: No Review of Systems Const Denies weight gain and Denies weight loss ENT Reports no additional complaints, Denies dysphagia and Denies odynophagia Card Reports no additional complaints Resp Reports no additional complaints GI Denies abdominal pain, Denies belching, Denies melena, Denies bloating, Denies change in bowel habits, Denies dysphagia, Denies excessive flatus, Denies dyspepsia, Denies heartburn, Denies diarrhea, Denies loose stools, Denies nausea, Denies odynophagia and Denies vomiting Musc Reports no additional complaints Neuro Reports no additional complaints Psych Reports no additional complaints Endo Reports no additional complaints Physical Exam Vital Signs: Last Vital Signs Pulse 86 03/22/23 13:22 BP 144/84 H 03/22/23 13:22 BMI result Body Mass Index 43.0 Const General: healthy appearing, no acute distress and well developed Nutritional Appearance: well nourished Orientation/consciousness: patient oriented x3 HEENT Head: Yes normal to inspection, Yes normocephalic and Yes atraumatic Face and sinus: Yes normal facial exam Mouth: Normal oral and palatal mucosa present Throat: Yes posterior oropharynx normal, Yes tonsils normal and Yes uvula midline Eyes General: appearance normal, both eyes and all related structures Neck Neck: Yes normal visual inspection, Yes full ROM and Yes trachea midline Thyroid: Thyroid normal Resp Effort & Inspection: normal respiratory effort, able to speak in complete sentences, no tracheal deviation and symmetric chest movement Auscultation: clear to auscultation bilaterally Cardio Rate: regular rate Heart sounds: S1 normal heart sound present and S2 normal heart sound present GI Inspection: Yes normal to inspection, No distended and Yes obesity Palpation (GI): Soft to palpation, not firm, nontender and No hepatosplenomegaly present Auscultation: normal bowel sounds General: Yes no CVA tenderness Back/Spine/Pelvis Back: no CVA tenderness Skin General skin exam: elasticity normal, turgor normal and dry skin Neuro General: patient oriented x3 Psych Appearance: grossly normal Mental Status: mental status grossly normal Assessment & Plan Assessment & Plan (1) Tubular adenoma of colon: Comment: Removed during 2018 [place] [facility] [place](s): D12.6 - Benign neoplasm of colon, unspecified (2) Screen for colon cancer: Code(s): Z12.11 - Encounter for screening for malignant neoplasm of colon Plan Patient denies any GI, cardiac or respiratory symptoms.? Denies any issues with anesthesia in the past.? Denies any history of sleep apnea.? No history infectious diseases in the past or present.? Not on any anticoagulation therapy.? Tubular adenoma found on colonoscopy 03/27/2018. Patient denies nate jannie, hematochezia, unintentional weight loss or ribbon like stools.? Discussed at length the pre-procedure,? prep, diet & medications as well as what to expect prior, during and after the procedure.?? Stressed the importance of good bowel prep. ?Recommended the use of Vaseline or Calmoseptine OTC & baby wipes with bowel movements to promote comfort.? ?Patient verbalizes understanding and agrees to plan of care.? She was given the opportunity to ask questions and all questions answered.? We will see her after the procedure.? Medications: New bisacodyl (Dulcolax (bisacodyl)) take 4 tabs at noon the day before your colonoscopy 20 mg (4 x 5 mg) PO ONCE 1 day 4 tabs 0RF Z12.11 - Encounter for screening for malignant neoplasm of colon polyethylene glycol 3350 (Miralax) As directed by gastroenterology department at [facility] 238 grams PO ONCE 238 grams 0RF Z12.11 - Encounter for screening for malignant neoplasm of colon Coding Level of Care Code New Pt Level 3 (38753) Diagnoses Tubular adenoma of colon D12.6 Screen for colon cancer Z12.11 Time Spent (min) 40 Comment 30 minutes spent with patient and additional 10 minutes spent reviewing her records
[2023-03-22 13:22] VITALS: BP 144/84; PULSE 86; BMI 43.0
== END 2023-03-22 14:05 | disposition home or self-care (01) ==
PROVIDERS: PCP Internal Medicine; Visit Provider Nurse Practitioner Family
DX: D12.6 Benign neoplasm of colon, unspecified (principal); Z12.11 Encounter for screening for malignant neoplasm of colon
CPT/HCPCS: 99203

== ENCOUNTER → 2023-03-22 13:17 | Outpatient (BNVA) | payer OTHER, SELFPAY | PROVIDERS: PCP Internal Medicine; Visit Provider Nurse Practitioner Family | DX: Z12.11 Encounter for screening for malignant neoplasm of colon (principal); D12.6 Benign neoplasm of colon, unspecified | CPT/HCPCS: 99202 ==

== ENCOUNTER 2023-05-16 07:42 | Outpatient (REF) | payer OTHER, SELFPAY ==
[2023-05-16 08:19] LABS: Estimated Average Glucose 131 mg/dL; Hemoglobin A1c % 6.2 % (<6.0)
[2023-05-16 08:39] LABS: Alanine Aminotransferase 14 U/L (0-31); Anion Gap 11 (12-20); Aspartate Amino Transferase 19 U/L (5-31); Blood Urea Nitrogen 19 mg/dL (9-16); Calcium 8.9 mg/dL (8.4-10.2); Carbon Dioxide 28 mmol/L (22-29); Chloride 105 mmol/L (96-108); Cholesterol 101 mg/dL (<200); Estimated Glomerular Filt Rate 50; Glucose Fasting 109 mg/dL (60-99); HDL Cholesterol 39 mg/dL (>40); LDL Cholesterol Calculated 44 mg/dL (<100); Potassium 4.4 mmol/L (3.3-5.1); Sodium 140 mmol/L (135-145); Triglycerides 90 mg/dL (<150)
[2023-05-16 08:54] LABS: Vitamin D 25-OH Total 41.2 ng/mL (>30)
== END 2023-05-16 07:43 | disposition home or self-care (01) ==
LOC: HO.LAB 07:42
PROVIDERS: PCP Internal Medicine; Visit Provider Internal Medicine
DX: E11.9 Type 2 diabetes mellitus without complications (principal); I10 Essential (primary) hypertension; E66.01 Morbid (severe) obesity due to excess calories; Z78.0 Asymptomatic menopausal state
CPT/HCPCS: 36415; 80048; 80061; 82306; 83036; 84450; 84460

== ENCOUNTER 2023-07-27 07:55 | Day surgery (SDC) | payer OTHER, SELFPAY ==
[2023-07-25 12:02] VITALS: BMI 42.8
--- NOTE | 2023-07-27 08:41 | HO.ANESPROP2 ---
[facility] Active Problems Active Problems: All Active Problems (Updated 03/22/23 @ 13:34 by Yahaira Archibald, [facility]) Tubular adenoma of colon (Acute) Pain of right shoulder joint on movement (Acute) Type 2 diabetes mellitus without complication, with no history of insulin use (Acute) HTN (hypertension) (Acute) Morbid obesity (Acute) Generalized anxiety disorder (Acute) Postmenopause (Acute) Varicose veins of left lower extremity with inflammation (Acute) Past Medical History Medical History Tubular adenoma of colon Pain of right shoulder joint on movement Type 2 diabetes mellitus without complication, with no history of insulin use Painful arc syndrome of left shoulder Generalized anxiety disorder Postmenopause Bilateral primary osteoarthritis of knee Osteoarthritis HTN (hypertension) Fibromyalgia Functional capacity: independent ambulation Family History Family History Father Myocardial infarction Cancer of prostate Substance use disorder Mother HTN (hypertension) Diabetes mellitus Maternal Grandmother HTN (hypertension) Daughter No problems noted. Daughter No problems noted. Daughter No problems noted. Daughter No problems noted. Sister No problems noted. Sister No problems noted. Sister No problems noted. Sister No problems noted. Brother No problems noted. Brother No problems noted. Brother No problems noted. Brother No problems noted. Brother Substance use disorder Brother No problems noted. Brother No problems noted. 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 Current occupational exposures/hazards: No Cognitive needs: No Hearing needs: No Vision needs: No Meds Allergies Allergy/AdvReac Type Severity Reaction Status Date / Time No Known Allergies Allergy Verified 07/27/23 08:41 [No Known Allergies*] Home Medications Medication Instructions Recorded Confirmed Last Taken Type cholecalciferol (vitamin D3) 50 50 mcg PO DAILY 05/13/20 07/27/23 07/18/22 History mcg (2,000 unit) capsule acetaminophen 500 mg tablet 500 mg PO Q6H PRN Pain 06/09/21 07/27/23 07/17/22 History (Tylenol Extra Strength) Exam Height,Weight and Vital Signs: Height 4 ft 8 in Weight 86.636 kg Airway Mallampati Class: III TM Dist: <=3cm Neck ROM: Full Denture: Upper and Lower Loose/Missing/Broken Teeth: No Heart: rrr Lungs: cta b/l Assessment and Plan Assessment Anesthesia Assessment: Anesthesia Plan Discussed and Chart Reviewed Final Anesthetic Review Family History of Problems with Anesthesia: No History of Problems with Anesthesia: No NPO: Yes ASA Class: III Final Preanesthetic Review: No Changes in Pt Med Stat, Meds/Allgs Chart Reviewed, Consent Obtained/Reviewed and Anes Risks/Benef Reviewed Patient Risk: Intermediate Procedure Risk: Intermediate Anesthetic Plan Disposition: Standard PACU
[2023-07-27 08:53] LABS: Glucose, Whole Blood 116 mg/dL (60-115)
[2023-07-27 08:56] VITALS: BP 163/71; PULSE 79; RESP 16; TEMP 36.5; O2SAT 95
--- NOTE | 2023-07-27 09:30 | MHC.SHP ---
Pre-Procedural Eval Section A - 24 Hr Update-Section A only Date of Service: 07/27/23 Section B - Complete if H&P > 30 days Chief Complaint: Benign neoplasm of colon, unspecified Relevant Family History (Specify if Yes): No Relevant Social History: None Present Medications: see Short Stay Collaborative assessment Medical History: Significant History ( Tubular adenoma of colon Pain of right shoulder joint on movement Type 2 diabetes mellitus without complication, with no history of insulin use Painful arc syndrome of left shoulder Generalized anxiety disorder Postmenopause Bilateral primary osteoarthritis of knee Osteoarthritis HTN (hypertension)) History of Previous Operations: Relevant previous surgery/procedure and date(s) (Hx of colonoscopy History of inguinal herniorrhaphy H/O arthroscopy of left knee) Allergies: Allergies Allergy/AdvReac Type Severity Reaction Status Date / Time No Known Allergies Allergy Verified 07/27/23 08:41 [No Known Allergies*] Review of Systems Sugical H&P ROS: Negative: Constitution, Cardiovascular, Respiratory, Neurological, Psychiatric, Hem-Onc, Allergic/Immunologic, Gastrointestinal, Genitourinary, Musculoskeletal, Integumentary, Endocrine and Eyes/Ears/Nose/Throat Exam Surgical H&P Exam: Normal: HEENT, Normal: Heart, Normal: Lungs, Normal: Extremities, Normal: Abdomen, Normal: Skin and Normal: Neurological Plan Diagnosis/Plan: Unchanged I have reviewed the history and physical and performed a pertinent physical examination on my patient. No changes have occurred unless specified. Time Spent With Patient Time: Total time managing care of this patient today ____ minutes.
--- NOTE | 2023-07-27 10:11 | W.PM.OPN ---
Operative Note Operative Note Date of Service: 07/27/23 Narrative: Operative Information Procedure Description: Colonoscopy Indication: screening Anesthesia: MAC COLONOSCOPY Instrument: Olympus variable stiffness pediatric scope 190L Colonoscopy Monitoring: Vital signs and clinical assessment, continuous EKG monitoring, Pulse oximetry, Carbon Dioxide monitoring and blood pressure monitoring were done throughout the procedure. Colon withdrawal time was 9 minutes. Procedure: The patient was placed in the left lateral decubitis position and pre-procedure medications were administered. After a digital rectal examination of the ano-rectum, the video colonoscope was inserted into the rectum and advanced through the colon to the cecum/TI. The colonoscope was slowly withdrawn in a retrograde panoramic fashion and the colon mucosa was carefully examined including a retroflexed view of the rectum. Findings and interventions are described below. Procedure Difficulty: difficult, looping and redundant colon Findings: Terminal Ileum-not intubated Cecum: 4-6 mm sessile polyp removed with cold forceps Ascending Colon: normal Transverse Colon -normal Descending Colon:normal Sigmoid Colon: normal Rectum: Retroflexion with small internal hemorrhoids seen, grade I Anorectum - normal Intervention: cold forceps Colon preparation: [place] Bowel Preparation Scale Right colon; 3 Transverse colon: 2 Left colon; 1-2 (0 = Unprepared colon segment with mucosa not seen due to solid stool that cannot be cleared. 1 = Portion of mucosa of the colon segment seen, but other areas of the colon segment not well seen due to staining, residual stool and/or opaque liquid. 2 = Minor amount of residual staining, small fragments of stool and/or opaque liquid, but mucosa of colon segment seen well. 3 = Entire mucosa of colon segment seen well with no residual staining, small fragments of stool or opaque liquid) Impression and Post Procedure Diagnosis: colon polyp internal hemorrhoids Plan: High fiber diet leaflet Avoid straining at stool, epsom salts and sitz bath, anusol supps or cream Repeat Colonoscopy in 5 years due to fair prep left side or earlier if clinically indicated next time adult scope Above findings were reviewed with the patient and relevant handouts were provided if indicated.
[2023-07-27 10:15] VITALS: BP 120/47; PULSE 78; RESP 15; TEMP 36.1; O2SAT 100
[2023-07-27 10:30] VITALS: BP 123/62; PULSE 72; RESP 16; O2SAT 100
[2023-07-27 10:45] VITALS: BP 140/79; PULSE 73; RESP 14; TEMP 36.2; O2SAT 100
== END 2023-07-27 10:45 | disposition home or self-care (01) ==
PROVIDERS: PCP Internal Medicine; Visit Provider Internal Medicine Gastroenterology
PROC: 0DJD8ZZ Inspection of Lower Intestinal Tract, Via Natural or Artificial Opening Endoscopic (ICD-10-PCS; CPT 45378; principal; 2023-07-27 10:30)
DX: Z12.11 Encounter for screening for malignant neoplasm of colon (principal); Z86.010 Personal history of colon polyps; K63.5 Polyp of colon; K64.0 First degree hemorrhoids; I10 Essential (primary) hypertension; E11.9 Type 2 diabetes mellitus without complications; M79.7 Fibromyalgia; F41.1 Generalized anxiety disorder; Z79.84 Long term (current) use of oral hypoglycemic drugs; Z79.899 Other long term (current) drug therapy; Z98.890 Other specified postprocedural states
CPT/HCPCS: 45380; 82947; 88305; J2704

== ENCOUNTER → 2023-07-27 07:55 | Outpatient (BNV) | payer OTHER, SELFPAY | PROVIDERS: PCP Internal Medicine; Visit Provider Internal Medicine Gastroenterology | DX: Z12.11 Encounter for screening for malignant neoplasm of colon (principal); K63.5 Polyp of colon; K64.0 First degree hemorrhoids | CPT/HCPCS: 45380 ==

== ENCOUNTER 2024-01-04 07:34 | Outpatient (REF) | payer OTHER, SELFPAY ==
[2024-01-04 08:05] LABS: Estimated Average Glucose 131 mg/dL; Hemoglobin A1c % 6.2 % (<6.0)
[2024-01-04 08:08] LABS: Creatinine Urine 86.64 mg/dL
[2024-01-04 08:13] LABS: Alanine Aminotransferase 14 U/L (0-31); Anion Gap 11 (12-20); Aspartate Amino Transferase 18 U/L (5-31); Blood Urea Nitrogen 17 mg/dL (9-16); Calcium 9.4 mg/dL (8.4-10.2); Carbon Dioxide 30 mmol/L (22-29); Chloride 104 mmol/L (96-108); Cholesterol 128 mg/dL (<200); Estimated Glomerular Filt Rate 57; Glucose Fasting 127 mg/dL (60-99); HDL Cholesterol 41 mg/dL (>40); LDL Cholesterol Calculated 63 mg/dL (<100); Potassium 4.6 mmol/L (3.3-5.1); Sodium 140 mmol/L (135-145); Triglycerides 120 mg/dL (<150)
[2024-01-04 08:28] LABS: Vitamin D 25-OH Total 43.5 ng/mL (>30)
== END 2024-01-04 07:35 | disposition home or self-care (01) ==
LOC: HO.LAB 07:34
PROVIDERS: PCP Internal Medicine; Visit Provider Internal Medicine
DX: I10 Essential (primary) hypertension (principal); E66.01 Morbid (severe) obesity due to excess calories; Z78.0 Asymptomatic menopausal state; E11.9 Type 2 diabetes mellitus without complications
CPT/HCPCS: 36415; 80048; 80061; 82043; 82306; 82570; 83036; 84450; 84460

== ENCOUNTER 2024-02-13 16:22 | Emergency (ER) | payer OTHER, SELFPAY ==
--- NOTE | ~2024-02-13 | XR_ITS ---
EXAMINATION: XR HIP, RIGHT CLINICAL INFORMATION: Pain COMPARISON: None available. TECHNIQUE: Two views of the right hip. PA view of the pelvis. FINDINGS: No fracture. Alignment is anatomic. Hip joint space is maintained. Soft tissues are unremarkable. XR/XR hip RT w [id number] IMPRESSION: Normal right hip. Electronically signed by: Lotus Quiroga MD 02/13/2024 05:41 PM EDT RP
[2024-02-13 16:33] VITALS: BP 125/86; PULSE 86; RESP 20; TEMP 37.2; O2SAT 98; BMI 43.8
--- NOTE | 2024-02-13 16:39 | ED_ITS ---
HPI - Fall General Chief Complaint: Fall Stated Complaint: Fall - hip pain Time Seen by Provider: 02/13/24 17:57 Source: patient Mode of arrival: ambulatory Limitations: no limitations History of Present Illness ED Provider: Dre Esparza PA-C HPI Narrative: 63-year-old female with history of morbid obesity, hypertension, DM 2, varicose veins, anxiety who presents to the ER for evaluation right hip pain after she fell 3 days ago. Patient reports missing a bottom stair, causing her to fall onto her right side. She reports soreness in her right lower back and pain in her right hip since then. Pain is worse with palpation and movement, ambulation. She has been ambulating without assistance. She also reports intermittent swelling to the right ankle but does not have any pain in the right ankle. When she fell she did not hit her head or lose consciousness. She is on a blood thinner. Her daughter encouraged her to come get evaluated in the ER, because she is still complaining of hip and back pain. MD complaint: fall Onset (ago): day(s) (3) Fall from: standing Fall witnessed: no Place fall occurred: home Loss of consciousness: none Prolonged down time: no Symptoms prior to fall: none Context: tripped/slipped Location of injury: back and pelvis Severity: moderate Quality: aching Associated symptoms (after fall): denies Related Data Home Medications ?Medication ?Instructions ?Recorded ?Confirmed cholecalciferol (vitamin D3) 50 50 mcg PO DAILY 05/13/20 07/27/23 mcg (2,000 unit) capsule acetaminophen 500 mg tablet 500 mg PO Q6H PRN Pain 06/09/21 07/27/23 (Tylenol Extra Strength) Previous Rx's ?Medication ?Instructions ?Recorded blood-glucose meter (Adzunayle #1 ea 03/10/22 Philomath Lite kit) ibuprofen 600 mg tablet 600 mg PO Q6-8H PRN pain #40 tabs 07/19/22 naproxen 500 mg tablet 500 mg PO DAILY PRN Pain #30 tabs 09/10/22 rosuvastatin 5 mg tablet 5 mg PO 3XW 3 months #39 tabs 09/10/22 triamcinolone acetonide 0.025 % 1 appl topical DAILY 10 days #15 09/10/22 topical cream grams blood sugar diagnostic (FreeStyle #100 ea 05/17/24 Lite Strips) lisinopril 5 mg tablet 5 mg PO QAM #90 tabs 11/07/23 lancets 28 gauge (FreeStyle #100 ea 12/28/23 Lancets) metformin 500 mg tablet 500 mg PO DAILY 3 months #90 tabs 12/31/23 citalopram 20 mg tablet 20 mg PO DAILY #90 caps 02/03/24 Allergies Allergy/AdvReac Type Severity Reaction Status Date / Time No Known Allergies Allergy Verified 02/13/24 16:38 [No Known Allergies*] Review of Systems Review of Systems: Yes all other systems are reviewed and are negative [facility] Past Medical History Medical History (Updated 02/14/24 @ 07:17 by SHANTANU Youssef) Tubular adenoma of colon Pain of right shoulder joint on movement Type 2 diabetes mellitus without complication, with no history of insulin use Painful arc syndrome of left shoulder Generalized anxiety disorder Postmenopause Bilateral primary osteoarthritis of knee Osteoarthritis HTN (hypertension) Fibromyalgia Surgical History Hx of colonoscopy History of inguinal herniorrhaphy H/O arthroscopy of left knee Family History Family History Father Myocardial infarction Cancer of prostate Substance use disorder Mother HTN (hypertension) Diabetes mellitus Maternal Grandmother HTN (hypertension) Daughter No problems noted. Daughter No problems noted. Daughter No problems noted. Daughter No problems noted. Sister No problems noted. Sister No problems noted. Sister No problems noted. Sister No problems noted. Brother No problems noted. Brother No problems noted. Brother No problems noted. Brother No problems noted. Brother Substance use disorder Brother No problems noted. Brother No problems noted. 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 Oriented X3. No acute distress. Head: normocephalic, atraumatic. Eyes: Pupils equal, round and reactive to light. ENT: Pharynx normal. No tonsillar swelling or exudate. Neck: Normal inspection. Neck supple. CVS: Normal heart rate and rhythm. Pulses normal. Respiratory: No respiratory distress. Breath sounds normal. Abdomen: Obese, Soft and nontender. +BS x4 Back: Soft tissue tenderness on the right lower lumbar area. No midline tenderness. Skin: Skin warm and dry. Normal skin color. Normal skin turgor. No rashes. Extremities: Trace pitting edema of the right foot and ankle. Nontender right ankle joint with full range of motion. Pelvis is stable. Right lateral hip is mildly tender. Full range of motion. Neuro/psych: Oriented X 3. No motor deficit. No sensory deficit. CN II-XII intact. Normal speech and cognition. Steady gait. Course Course Course Narrative: This is an RME: Additional HPI, ROS, PE not included below will be deferred to primary provider. RME assessment and note performed by: Katty Roque PA-C This is a [id number]-female who presents to the ER with a complaint of right hip pain x3 days. She states that she fell down the steps 3 days ago and landed on her left side however states that she has right hip pain. She is feeling okay however wanted to get evaluated to ensure that she is okay. Denies head strike, LOC. She is not on blood thinners. Plan: X-ray Medical Decision Making Medical Decision Making MDM Narrative: 63-year-old female presenting to the ER for evaluation of right hip pain after she slipped and fell down a stair 3 days ago. No head strike or loss of consciousness. She has been ambulating well. Soft tissue tenderness of the right lumbar area and right lateral hip. She has full range motion of the hip. Doubt acute fracture. X-rays were performed which shows a normal right hip. Most likely muscular pain. She would like to be discharged home. She has a steady gait. Discussed supportive care with rest, ice, NSAIDs and Tylenol. Encouraged follow-up with primary care doctor. Stable for discharge home Differential Diagnosis Differential Diagnoses: The differential diagnosis associated with the presentation includes Hip contusion, hip strain, low back strain, pubic rami fracture, hip fracture Admission/Observation Consideration of admission/observation: Escalation of care including admission/observation considered Independent Interpretation I performed an independent interpretation of an: Plain X-Ray Interpretation: no acute fx or dislocation appreciated, agree w/ radiology read Radiology Impression Discussion of test interpretation with radiology: I have reviewed the radiologist's reading. Radiologist Impression: EXAMINATION: XR HIP, RIGHT CLINICAL INFORMATION: Pain COMPARISON: None available. TECHNIQUE: Two views of the right hip. PA view of the pelvis. FINDINGS: No fracture. Alignment is anatomic. Hip joint space is maintained. Soft tissues are unremarkable. XR/XR hip RT w [id number] IMPRESSION: Normal right hip. External Record Review External record reviewed: Outpatient record, Prior outpatient labs and Prior outpatient radiology Prescription Management I considered prescription management with: Pain Medication Chronic Conditions Patient?s care impacted by: Diabetes, Hypertension and Other (Morbid obesity) Critical Care Time Critical Care Time Critical Care Time: No Discharge Plan Discharge Clinical Impression: Low back strain, Contusion of hip Patient Disposition: Home, Self-Care Instructions: Low Back Strain (ED), Hip Contusion (ED) Additional Instructions: Your x-ray today was normal. Rest. no strenuous activity Use ice several times per day for the next 48 hours. Take Motrin and/or Tylenol as needed for pain. Follow up with your doctor as needed. If you develop new or worsening symptoms call 911 or come back to the ER for further evaluation. Prescriptions: No Action (DME) blood-glucose meter [FreeStyle [place] Lite] Kit See Rx Instructions .Route Qty: 1 0RF Rx Instructions: check fasting glucose qd ac (DME) FreeStyle Lite Strips Strip See Rx Instructions .Route Qty: 100 1RF Rx Instructions: check fasting glucose qd ac lisinopril 5 mg tablet 5 mg PO QAM Qty: 90 1RF (DME) lancets [FreeStyle Lancets] 28 gauge misc See Rx Instructions .Route Qty: 100 1RF Rx Instructions: Test sugar QD ac metformin 500 mg tablet 500 mg PO DAILY 90 Days Qty: 90 1RF Rx Instructions: take with supper citalopram 20 mg tablet 20 mg PO DAILY Qty: 90 1RF ibuprofen 600 mg tablet 600 mg PO Q6-8H PRN (Reason: pain) Qty: 40 0RF cholecalciferol (vitamin D3) 50 mcg (2,000 unit) capsule 50 mcg PO DAILY rosuvastatin 5 mg tablet 5 mg PO 3XW 90 Days Qty: 39 1RF naproxen 500 mg tablet 500 mg PO DAILY PRN (Reason: Pain) Qty: 30 0RF triamcinolone acetonide 0.025 % cream 1 appl topical DAILY 10 Days Qty: 15 0RF acetaminophen [Tylenol Extra Strength] 500 mg tablet 500 mg PO Q6H PRN (Reason: Pain) Interventions: ED Discharge Assessment Last Done: 02/13/24 18:27 Discharge Date/Time: 02/13/24 18:28 Print Language: Polish
[2024-02-13 18:27] VITALS: BP 128/88; PULSE 82; RESP 18; TEMP 36.7; O2SAT 98
--- NOTE | 2024-02-13 18:27 | PC.NURSE ---
patient a&ox3, vss, c/o 09/08 rt hip pain, pt to go home and medicate at home with otc medications.
== END 2024-02-13 18:28 | disposition home or self-care (01) ==
PROVIDERS: Emergency Provider Emergency Medicine; PCP Internal Medicine
DX: S39.012A Strain of muscle, fascia and tendon of lower back, initial encounter (principal); S70.01XA Contusion of right hip, initial encounter; R10.2 Pelvic and perineal pain; W10.8XXA Fall (on) (from) other stairs and steps, initial encounter; Y93.89 Activity, other specified; Y92.89 Other specified places as the place of occurrence of the external cause; Y99.8 Other external cause status; Z79.899 Other long term (current) drug therapy
CPT/HCPCS: 73502; 99282; 99283

== ENCOUNTER 2024-03-13 07:23 | Outpatient (REF) | payer OTHER, SELFPAY ==
--- NOTE | ~2024-03-13 | MM_ITS ---
EXAMINATION: MM SCREENING DIGITAL BREAST TOMOSYNTHESIS, BILATERAL CLINICAL INFORMATION: Screening. Asymptomatic. COMPARISON: Mammography: Comparison is made with available priors TECHNIQUE: Digital breast mammography with tomosynthesis is performed in both the craniocaudal and mediolateral oblique views along with computer-aided detection (CAD). FINDINGS: There are scattered areas of fibroglandular density (ACR BI-RADS breast composition Category b). There are no significant masses, abnormal calcifications, or other abnormalities. MM/MM tomosynthesis screening BI IMPRESSION: No mammographic evidence of malignancy. ASSESSMENT: BI-RADS BI-RADS 1 - Negative RECOMMENDATION: Routine annual mammography screening. 1 year F/U This examination should not preclude the clinical evaluation of a suspicious palpable abnormality. This patient's information was entered into a reminder system with a target due date for their next mammogram. Electronically signed by: Jennifer Abreu DO 03/21/2024 12:28 PM JASWINDER
== END 2024-03-13 07:24 | disposition home or self-care (01) ==
LOC: HO.MAMMO 07:23
PROVIDERS: PCP Internal Medicine; Visit Provider Internal Medicine
DX: Z12.31 Encounter for screening mammogram for malignant neoplasm of breast (principal)
CPT/HCPCS: 77063; 77067

== ENCOUNTER → 2024-03-13 07:45 | Outpatient (BNV) | payer OTHER, SELFPAY | PROVIDERS: PCP Internal Medicine; Visit Provider Internal Medicine | DX: Z12.31 Encounter for screening mammogram for malignant neoplasm of breast (principal) | CPT/HCPCS: 77063; 77067 ==

== ENCOUNTER 2024-04-09 06:01 | Outpatient (REF) | payer OTHER, SELFPAY ==
[2024-04-09 06:14] LABS: MANUAL DIFF FLAG NO
[2024-04-09 07:14] LABS: Basophils Absolute Auto 0.1 X10*3/uL (0.0-0.2); Basophils Percent Auto 0.6 % (0-2); Eosinophils Absolute Auto 0.3 X10*3/uL (0.0-0.4); Eosinophils Percent Auto 2.8 % (0-4); Hematocrit 35.7 % (37.0-47.0); Hemoglobin 11.3 g/dl (12.0-16.0); Imm Gran Abs Auto 0.02 X10*3/uL (0.00-0.03); Imm Gran Pct Auto 0.2 % (0.0-0.4); Lymphocytes Absolute Auto 3.9 X10*3/uL (1.2-4.9); Lymphocytes Percent Auto 44.6 % (20-40); Mean Corpuscular HGB Conc 31.7 g/dl (31.0-35.0); Mean Corpuscular Volume 88.6 fL (80.0-98.0); Mean Platelet Volume 10.1 fL (9.4-12.3); Monocytes Absolute Auto 0.7 X10*3/uL (0.1-1.2); Monocytes Percent Auto 7.4 % (2-11); Neutrophils Absolute Auto 3.9 x10*3/uL (2.0-8.3); Neutrophils Percent Auto 44.4 % (45-73); Platelet Count 398 X10*3/uL (160-400); Red Blood Count 4.03 X10*6/uL (4.20-5.50); Red Cell Distribution Width 12.5 % (11.0-16.0); White Blood Count 8.8 X10*3/uL (4.8-10.8)
[2024-04-09 07:26] LABS: Estimated Average Glucose 140 mg/dL; Hemoglobin A1C 137.7872 umol/L; Hemoglobin A1c % 6.5 % (<6.0); Total Hemoglobin (HGBA1C) 2918.8546 umol/L
[2024-04-09 07:44] LABS: Creatinine Urine 129.53 mg/dL; Microalbum/Creatinine Ratio Ur 16.2 ug/mg cr (<30)
[2024-04-09 07:45] LABS: Alanine Aminotransferase 17 U/L (0-31); Anion Gap 10 (12-20); Aspartate Amino Transferase 21 U/L (5-31); Blood Urea Nitrogen 19 mg/dL (9-16); Calcium 9.1 mg/dL (8.4-10.2); Carbon Dioxide 30 mmol/L (22-29); Chloride 104 mmol/L (96-108); Cholesterol 133 mg/dL (<200); Estimated Glomerular Filt Rate > 60; Glucose Fasting 110 mg/dL (60-99); HDL Cholesterol 38 mg/dL (>40); LDL Cholesterol Calculated 76 mg/dL (<100); Potassium 4.2 mmol/L (3.3-5.1); Sodium 140 mmol/L (135-145); Triglycerides 95 mg/dL (<150)
[2024-04-09 08:01] LABS: Vitamin D 25-OH Total 37.1 ng/mL (>30)
== END 2024-04-09 06:02 | disposition home or self-care (01) ==
LOC: HO.LAB 06:01
PROVIDERS: PCP Internal Medicine; Visit Provider Internal Medicine
DX: D12.6 Benign neoplasm of colon, unspecified (principal); E11.9 Type 2 diabetes mellitus without complications; I10 Essential (primary) hypertension; E66.01 Morbid (severe) obesity due to excess calories; Z78.0 Asymptomatic menopausal state
CPT/HCPCS: 36415; 80048; 80061; 82043; 82306; 82570; 83036; 84450; 84460; 85025

== ENCOUNTER 2024-04-12 08:45 | Outpatient (AMB) | payer OTHER, SELFPAY ==
[2024-04-12 08:54] VITALS: BP 118/64; PULSE 82; O2SAT 100; BMI 43.5
--- NOTE | 2024-04-12 08:54 | MHC.PC.OV ---
Vital Signs 04/12/24 08:54 Height 4 ft 8 in Weight 194 lb BMI 43.5 BP 118/64 Blood Pressure Location Rt brachial Position Sitting Pulse 82 Pulse Source Pulse Oximeter Pulse Oximetry (%) 100 Oxygen Delivery Method Room Air Intake Visit Reasons: PE Intake Note: Pt is here today for her PE: Last mammogram 03/13/24, colonoscopy 07/27/23, papsmear 06/09/18 Allergies No Known Allergies [No Known Allergies*] Allergy (Verified 04/12/24 09:39) Medication List - Last Reconciled 04/12/24 by Praveena Denton MD acetaminophen (Tylenol Extra Strength) 500 mg PO Q6H PRN blood sugar diagnostic (FreeStyle Lite Strips) check fasting glucose qd ac blood-glucose meter (FreeStyle [place] Lite kit) check fasting glucose qd ac citalopram 20 mg PO DAILY ibuprofen 600 mg PO Q6-8H PRN lancets (FreeStyle Lancets) Test sugar QD ac lisinopril 5 mg PO QAM metformin 500 mg PO DAILY 3 months triamcinolone acetonide 0.025% 1 appl topical DAILY PRN Tobacco use date assessed: 04/12/24 Dental Screening Dental Screen Date: 04/12/24 Did you have a dental visit in the last 12 months?: No Did you have a dental problem in the last 6 months where you did not have access to dental care?: No Was dental information given to patient?: Patient declined HPI PE HPI Details - The patient is a 63-year-old female presenting today for her physical examination. - Previous history of anemia with recent laboratory results indicating hemoglobin drop from 12.5 to 11.3 g/dL; reports fatigue and increased sleepiness, correlates with dietary intake lacking iron-rich foods. -she has Essential Hypertension that is managed with Lisinopril 5 mg; with pressure stable controlled on present treatment. - Type 2 Diabetes Mellitus controlled with Metformin 500 mg once daily; with latest hemoglobin A1c higher than last check, no at 6.5% as compared to 6.3% on last visit. - Reports not taking rosuvastatin for hyperlipidemia recently; with last fasting lipids showing increase in cholesterol levels. - Has a history of a benign colonic polyp removed by Dr. Soares 07/27/23, advised repeat Colonoscopy in 5 years due to fair prep left side or earlier if clinically indicated -- Up to date with COVID-19, Influenza, Shingles, and Pneumonia vaccines. - overdue Pap smear. Last bone density scan done in 2020 showed normal bone density in lumbar spine, left femoral neck and left femur. No history of fractures. Up-to-date with her screening mammogram, done last month with negative findings - Eye examination completed with Dr. Vela in December. [facility] Medical History (Updated 04/15/24 @ 16:12 by Praveena Denton MD) Hx of adenomatous polyp of colon Tubular adenoma of colon Pain of right shoulder joint on movement Type 2 diabetes mellitus without complication, with no history of insulin use Painful arc syndrome of left shoulder Generalized anxiety disorder Postmenopause Bilateral primary osteoarthritis of knee Osteoarthritis HTN (hypertension) Fibromyalgia Surgical History Hx of colonoscopy History of inguinal herniorrhaphy H/O arthroscopy of left knee Family History Father Myocardial infarction Cancer of prostate Substance use disorder Mother HTN (hypertension) Diabetes mellitus Maternal Grandmother HTN (hypertension) Daughter No problems noted. Daughter No problems noted. Daughter No problems noted. Daughter No problems noted. Sister No problems noted. Sister No problems noted. Sister No problems noted. Sister No problems noted. Brother No problems noted. Brother No problems noted. Brother No problems noted. Brother No problems noted. Brother Substance use disorder Brother No problems noted. Brother No problems noted. 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 1. Little interest or pleasure in doing things: not at all 2. Feeling down, depressed, or hopeless: not at all 3. Trouble falling or staying asleep, or sleeping too much: several days 4. Feeling tired or having little energy: several days 5. Poor appetite or overeating: not at all 6. Feeling bad about yourself - or that you are a failure or have let yourself or your family down: not at all 7. Trouble concentrating on things, such as reading the newspaper or watching television: several days 8. Moving or speaking so slowly that other people could have noticed. Or the opposite - being so fidgety or restless that you have been moving around a lot more than usual: not at all 9. Thoughts that you would be better off or of hurting yourself in some way: not at all Total score: 3 Depression Screening Interpretation: Negative Depression Screening Done: Yes 46435 - PHQ-9 Billing: Yes Source: Developed by Drs. Les Raya, Nelli Barton, Margarito Hong and colleagues, with an educational heydi from [employer]. Thrive Questionnaire Date Thrive assessed: 04/12/24 I am a: Patient What is your living situation today?: I have a steady place to live Within the past 12 months, did the food you bought not last and you didn't have the money to get more?: Never true Within the past 12 months, did you worry whether your food would run out before you got money to buy more?: Never true Do you have trouble paying for medicines?: No Do you have trouble getting transportation to medical appointments?: No Do you have trouble paying your heating and electricity bill?: No Do you have trouble taking care of your child, family member or friend?: No Do you have trouble with day-to-day activities such as bathing, preparing meals, shopping, managing finances, etc.?: No Are you currently unemployed and looking for a job?: No Are you interested in more education?: No Please select the resources that you would like help with: None Currently or been in a relationship where the following occur: No concerns reported THRIVE Score: 0 AUDIT C Alcohol Use Questionnaire (AUDIT-C) 1. How often do you have a drink containing alcohol?: Never Total Score: 0 NORBERTO-7 AMB Questionnaire NORBERTO-7 Date NORBERTO - 7 assessed: 04/12/24 Feeling nervous, anxious, or on edge: 0 = Not at all Not being able to stop or control worryin = Not at all Worrying too much about different things: 1 = Several days Trouble relaxin = Not at all Being so restless that it is hard to sit still: 0 = Not at all Becoming easily annoyed or irritable: 1 = Several days Feeling afraid as if something awful might happen: 0 = Not at all Total NORBERTO-7 score (0-4 normal; 5-9 mild; 10-14 moderate; 15-21 severe): 2 Source: Developed by Drs. Les Raya, Nelli Barton, Margarito Hong and colleagues, with an educational heydi from [employer]. NORBERTO-7 Assessment Billing NORBERTO-7 Assessment Tool: NORBERTO-7 Assessment 71490 Review of Systems Const Denies weight gain and Denies weight loss Eyes Details: utd with Dr Carlos Alatorre , has appt scheduled for 06/2024, has myopia ENT Reports no additional complaints and Reports Normal hearing present Card Reports no additional complaints Resp Reports no additional complaints GI Denies abdominal pain, Denies melena, Denies bloating, Denies change in bowel habits, Denies excessive flatus and Denies heartburn Reports no additional complaints Musc Reports no additional complaints Skin/Breast Denies breast pain, Denies breast mass and Denies rash Neuro Reports no additional complaints, Reports Normal hearing present and Denies Sensory deficit (Neuro) Psych Reports no additional complaints Endo Reports no additional complaints Spencer/Lymph Reports no additional complaints Aller/Immun Reports no additional complaints Physical exam (Primary Care) Vital Signs: Last Vital Signs Pulse 82 04/12/24 08:54 BP 118/64 04/12/24 08:54 Pulse Ox 100 04/12/24 08:54 Oxygen Delivery Method Room Air 04/12/24 08:54 BMI result Body Mass Index 43.5 BMI Assessment/Plan discussion: High BMI High, discussed plan: lifestyle, weight reduction, dietary and physical activity Tobacco/Smoking Status: Tobacco use Status Tobacco use date assessed 04/12/24 04/12/24 08:55 Patient Tobacco Use Status Never used Tobacco 04/12/24 08:55 Tobacco use type Cigarette 04/12/24 08:55 e-Cigarette/Vaping Use Never Used 04/12/24 08:55 PHQ-9: PHQ-9 Score PHQ-9: Total score 7 04/12/24 09:42 Depression Screening Interpretation: Negative Thrive Assessment: Date of Thrive Assessment Date Thrive assessed 09/10/22 04/12/24 08:55 Currently or been in a relationship where the following occur: No concerns reported Const General: no acute distress Nutritional Appearance: obese morbidly obese Orientation/consciousness: patient oriented x3 HENMT Head: Yes normocephalic Ears: external ears normal, TM's normal bilaterally and EAC's normal General nose exam: Normal external nose present Face and sinus: Yes face symmetric Mouth: oropharynx normal and moist mucous membranes Eyes Conjunctivae: conjunctivae normal Sclerae: sclerae normal Pupils: Equal, round and reactive pupils present EOM: EOMs intact bilaterally Neck Neck: Yes full ROM and Yes no lymphadenopathy Thyroid: Thyroid normal Chest Chest palpation & inspection: normal inspection of the chest Breast/axilla palpation: normal palpation of the breasts and normal palpation of the axillae Resp Effort & Inspection: normal respiratory effort and able to speak in complete sentences Auscultation: clear to auscultation bilaterally Cardio Rate: regular rate Rhythm: regular rhythm Heart sounds: S1 normal heart sound present and S2 normal heart sound present GI Inspection: Yes obesity Palpation (GI): Soft to palpation, nontender, no guarding and no masses Auscultation: normal bowel sounds General: Yes no CVA tenderness Back/Spine/Pelvis Back: no CVA tenderness Skin Other: Scattered hyperpigmented skin tags on anterior neck Neuro General: patient oriented x3 Cranial nerves: Yes Equal, round and reactive pupils present and Yes Normal hearing present Gait exam (Neuro): Normal gait present Motor exam (neuro): 5/5 motor strength present throughout Sensory Exam: No Sensory deficit (Neuro) Extrem General: Yes normal to inspection, Yes full ROM, Yes no joint enlargement, Yes no clubbing, cyanosis or edema, Yes no calf tenderness and Yes normal gait Psych Appearance: grossly normal and well kempt Mental Status: mental status grossly normal Speech and movement: Normal speech and movement present Affect: normal affect Attitude: cooperative Thought process: Normal thought process present Thought content: Normal thought content present Results Reviewed Results Reviewed: Name: Maria Elena Lawrence Age/Sex: 63/F : 1960 Unit#: [id number] Attend Dr: Praveena Denton MD Re04/09/24 Status: DEP REF [facility] Disch: SPEC : [id number] HAIM: 04/09/24 STATUS: COMP REQ : [id number] RECD: 04/09/[address]: Praveena Denton MD COMP: 04/09/24 ENTERED: 04/09/[address] [facility] [address]: ORDERED: CBC Auto Diff Test Result Flag Reference WBC 8.8 4.8-10.8 X10*3/uL RBC 4.03 L 4.20-5.50 X10*6/uL HGB 11.3 L 12.0-16.0 g/dl HCT 35.7 L 37.0-47.0 % MCV 88.6 80.0-98.0 fL MCH 28.0 27.0-33.0 pg MCHC 31.7 31.0-35.0 g/dl RDW 12.5 11.0-16.0 % PLT 398 160-400 X10*3/uL MPV 10.1 9.4-12.3 fL Neut Pct Auto 44.4 L 45-73 % ImGran Pct Auto 0.2 0.0-0.4 % Lymp Pct Auto 44.6 H 20-40 % [place] Pct Auto 7.4 2-11 % Eos Pct Auto 2.8 0-4 % Baso Pct Auto 0.6 0-2 % NRBC Pct Auto 0.0 0.0-0.2 /100WBC ANC Neut Abs # 3.9 2.0-8.3 x10*3/uL ImGran Abs Auto 0.02 0.00-0.03 X10*3/uL Lymph Abs Auto 3.9 1.2-4.9 X10*3/uL [place] Abs Auto 0.7 0.1-1.2 X10*3/uL Eos Abs Auto 0.3 0.0-0.4 X10*3/uL Baso Abs Auto 0.1 0.0-0.2 X10*3/uL NRBC Abs Auto 0.000 0.0-0.012 X10*3/uL Name: Maria Elena Lawrence Age/Sex: 63/F : 1960 Unit#: [id number] Attend Dr: Praveena Denton MD Re04/09/24 Status: DEP REF Location: [facility] Disch: SPEC : [id number] HAIM: 04/09/24 STATUS: COMP REQ : [id number] RECD: 04/09/[address]: Praveena Denton MD COMP: 04/09/24 ENTERED: 04/09/[address] [facility] [address]: ORDERED: Met Prof Fast, AST, ALT, Lipid Panel, Vitamin D 25-OH Test Result Flag Reference Sodium 140 135-145 mmol/L Potassium 4.2 3.3-5.1 mmol/L CL 104 96-108 mmol/L CO2 30 H 22-29 mmol/L Gap 10 L 12-20 BUN 19 H 9-16 mg/dL Creat 0.87 0.5-1.4 mg/dL eGFR > 60 Chronic Kidney Disease: Estimated GFR < 60 mL/min/1.73m2 Severe Kidney Disease: Estimated GFR < 15 mL/min/1.73m2 FBS 110 H 60-99 mg/dL A fasting glucose from 100-125 mg/dl is considered impaired (pre-diabetes). CA 9.1 8.4-10.2 mg/dL AST (GOT) 21 5-31 U/L ALT (GPT) 17 0-31 U/L Triglyceride 95 <150 mg/dL Desirable Triglyceride: less than 150 mg/dL Borderline High Triglyceride 150-199 mg/dL High Triglyceride: 200-499 mg/dL Very High Triglyceride: greater than or equal to 5OO mg/dL Cholesterol 133 <200 mg/dL Desirable Cholesterol: less than 200 mg/dL Borderline High Cholesterol: 200-239 mg/dL High Cholesterol: greater than 239 mg/dL LDL Calculated 76 <100 mg/dL Desirable LDL: less than 100 mg/dL Near Optimal/Above Optimal LDL: 110-129 mg/dL Borderline High LDL: 130-159 mg/dL High LDL: 160-189 mg/dL Very High LDL: greater than or equal to 190 mg/dL HDL 38 L >40 mg/dL Desirable HDL: greater than 40 mg/dL Note: This HDL assay may give artificially low results in patients with liver disease. Vit D 25-OH Tot 37.1 >30 ng/mL Health Based Reference Values* < 20 ng/mL Deficient 20-30 ng/mL Insufficient > 30 ng/mL Sufficient Laboratory Tests 04/09/24 06:12 Estimat Average Glucose 140 Hemoglobin A1c % 6.5 H Name: Maria Elena Lawrence Age/Sex: 63/F : 1960 Unit#: [id number] Attend Dr: Praveena Denton MD Re04/09/24 Status: DEP REF Location: [facility] Disch: SPEC : [id number] HAIM: 04/09/24 STATUS: COMP REQ : [id number] RECD: 04/09/[address]: Praveena Denton MD COMP: 04/09/24 ENTERED: 04/09/[address] [facility] [address]: ORDERED: MICARU Test Result Flag Reference Creat, Ur 129.53 mg/dL Microalbumin Ur 21.0 mg/L Alb/Creat Ratio 16.2 <30 ug/mg cr Albumin/Creatinine Ratio Reference Ranges: Coding Level of Care Code Est Pt Prev Care 40-64y(71857) Diagnoses Annual visit for general adult medical examination with abnormal findings Z00.01 Type 2 diabetes mellitus without complication, with no history of insulin use E11.9 Primary hypertension I10 Hypertension type: primary hypertension Anemia, unspecified type D64.9 Anemia type: unspecified type Generalized anxiety disorder F41.1 Morbid obesity E66.01 Additional Codes PHQ-9 - 53411 - PHQ-9 Billing: Yes ([id number]) NORBERTO-7 Assessment Billing - NORBERTO-7 Assessment Tool: NORBERTO-7 Assessment 36208 ([id number]) Assessment & Plan Assessment & Plan (1) Annual visit for general adult medical examination with abnormal findings: Code(s): Z00.01 - Encounter for general adult medical examination with abnormal findings Plan: Reviewed recent fasting lab results with patient.. Recommended dental visit every 6 months and annual eye exams for diabetes retinopathy screening. Take adequate calcium in diet and vitamin-D 3 at 2000 IU per cap once a day, in addition to weight-bearing exercises to help maintain good muscle tone and weight control. Instructed to do self-breast exam, and continue with yearly mammogram, up-to-date with her screening colonoscopy, last bone density scan in 2020 showed normal findings. Up-to-date with her vaccinations. Referred to OBGYN for her routine Pap and pelvic exam (2) Type 2 diabetes mellitus without complication, with no history of insulin use: Code(s): E11.9 - Type 2 diabetes mellitus without complications Category: Medical Plan: Hemoglobin A1c on latest labs was at 6.5%, will continue on metformin 500 mg once a day, reinforced importance of following recommended diet and getting regular exercise. Reminded to get yearly diabetes eyes exam. Restarted back on rosuvastatin 5 mg taken twice a day (3) HTN (hypertension): Code(s): I10 - Essential (primary) hypertension Category: Medical Qualifiers: Hypertension type: primary hypertension Qualified Code(s): I10 - Essential (primary) hypertension Plan: Blood pressure at goal of less than 130/80. Continue with current medication. Reinforced importance of following a low sodium diet, getting regular exercise, and lowering stress levels. (4) Anemia: Code(s): D64.9 - Anemia, unspecified Category: Medical Qualifiers: Anemia type: unspecified type Qualified Code(s): D64.9 - Anemia, unspecified Plan: Started iron supplement for anemia and recommended to take it with vitamin C or lemon water for better iron absorption in the gut. - Encourage increased dietary meat and vegetable intake to address iron deficiency. - Schedule follow-up lab work 3 months prior to next visit. (5) Generalized anxiety disorder: Code(s): F41.1 - Generalized anxiety disorder Category: Medical Plan: Continue with citalopram 20 mg daily (6) Morbid obesity: Code(s): E66.01 - Morbid (severe) obesity due to excess calories Category: Medical Plan: Discussed need to increase activity. Recommended focusing on improving your health instead of dieting. : Eat Mediterranean diet, limit foods high in fat, sugar, and calories, eat slowly, pay attention to portion sizes, plan your meals ahead of time, start regular physical activity 150 minutes of moderate intensity exercise or 90 minutes/week of vigorous exercise Orders: Orders Lipid Panel 06/30/24 D64.9 - Anemia, unspecified, E11.65 - Type 2 diabetes mellitus with hyperglycemia, E66.01 - Morbid (severe) obesity due to excess calories, F41.1 - Generalized anxiety disorder, I10 - Essential (primary) hypertension, Z78.0 - Asymptomatic menopausal state, Z86.0101 - Personal history of adenomatous and serrated colon polyps Microalbumin, Random (w Creat) 06/30/24 D64.9 - Anemia, unspecified, E11.65 - Type 2 diabetes mellitus with hyperglycemia, E66.01 - Morbid (severe) obesity due to excess calories, F41.1 - Generalized anxiety disorder, I10 - Essential (primary) hypertension, Z78.0 - Asymptomatic menopausal state, Z86.0101 - Personal history of adenomatous and serrated colon polyps Alanine Aminotransferase 06/30/24 D64.9 - Anemia, unspecified, E11.65 - Type 2 diabetes mellitus with hyperglycemia, E66.01 - Morbid (severe) obesity due to excess calories, F41.1 - Generalized anxiety disorder, I10 - Essential (primary) hypertension, Z78.0 - Asymptomatic menopausal state, Z86.0101 - Personal history of adenomatous and serrated colon polyps Aspartate Amino Transferase 06/30/24 D64.9 - Anemia, unspecified, E11.65 - Type 2 diabetes mellitus with hyperglycemia, E66.01 - Morbid (severe) obesity due to excess calories, F41.1 - Generalized anxiety disorder, I10 - Essential (primary) hypertension, Z78.0 - Asymptomatic menopausal state, Z86.0101 - Personal history of adenomatous and serrated colon polyps Basic Metabolic Panel Fasting 06/30/24 D64.9 - Anemia, unspecified, E11.65 - Type 2 diabetes mellitus with hyperglycemia, E66.01 - Morbid (severe) obesity due to excess calories, F41.1 - Generalized anxiety disorder, I10 - Essential (primary) hypertension, Z78.0 - Asymptomatic menopausal state, Z86.0101 - Personal history of adenomatous and serrated colon polyps Complete Blood Count Auto Diff 06/30/24 D64.9 - Anemia, unspecified, E11.65 - Type 2 diabetes mellitus with hyperglycemia, E66.01 - Morbid (severe) obesity due to excess calories, F41.1 - Generalized anxiety disorder, I10 - Essential (primary) hypertension, Z78.0 - Asymptomatic menopausal state, Z86.0101 - Personal history of adenomatous and serrated colon polyps IRON PROFILE 06/30/24 D64.9 - Anemia, unspecified, E11.65 - Type 2 diabetes mellitus with hyperglycemia, E66.01 - Morbid (severe) obesity due to excess calories, F41.1 - Generalized anxiety disorder, I10 - Essential (primary) hypertension, Z78.0 - Asymptomatic menopausal state, Z86.0101 - Personal history of adenomatous and serrated colon polyps Hemoglobin A1c 06/30/24 D64.9 - Anemia, unspecified, E11.65 - Type 2 diabetes mellitus with hyperglycemia, E66.01 - Morbid (severe) obesity due to excess calories, F41.1 - Generalized anxiety disorder, I10 - Essential (primary) hypertension, Z78.0 - Asymptomatic menopausal state, Z86.0101 - Personal history of adenomatous and serrated colon polyps Vitamin D 25-OH Total 06/30/24 D64.9 - Anemia, unspecified, E11.65 - Type 2 diabetes mellitus with hyperglycemia, E66.01 - Morbid (severe) obesity due to excess calories, F41.1 - Generalized anxiety disorder, I10 - Essential (primary) hypertension, Z78.0 - Asymptomatic menopausal state, Z86.0101 - Personal history of adenomatous and serrated colon polyps Referrals [employer] Referral Z12.4 - Encounter for screening for malignant neoplasm of cervix Medications: New ferrous sulfate 325 mg PO DAILY 90 tabs 1RF rosuvastatin 5 mg PO 2XW 3 months 26 tabs 3RF E11.9 - Type 2 diabetes mellitus without complications Refilled lisinopril 5 mg PO QAM 90 tabs 3RF metformin take with supper 500 mg PO DAILY 3 months 90 tabs 3RF citalopram 20 mg PO DAILY 90 caps 3RF
== END 2024-04-12 09:59 | disposition home or self-care (01) ==
PROVIDERS: PCP Internal Medicine; Visit Provider Internal Medicine
DX: Z00.00 Encounter for general adult medical examination without abnormal findings (principal); E11.9 Type 2 diabetes mellitus without complications; E66.01 Morbid (severe) obesity due to excess calories; Z68.41 Body mass index [BMI] 40.0-44.9, adult; I10 Essential (primary) hypertension; D64.9 Anemia, unspecified; F41.1 Generalized anxiety disorder

== ENCOUNTER → 2024-04-12 08:45 | Outpatient (BNVA) | payer OTHER, SELFPAY | PROVIDERS: PCP Internal Medicine; Visit Provider Internal Medicine | DX: Z00.01 Encounter for general adult medical examination with abnormal findings (principal); E11.9 Type 2 diabetes mellitus without complications; I10 Essential (primary) hypertension; D64.9 Anemia, unspecified; F41.1 Generalized anxiety disorder; E66.01 Morbid (severe) obesity due to excess calories; Z68.42 Body mass index [BMI] 45.0-49.9, adult; Z71.3 Dietary counseling and surveillance | CPT/HCPCS: 96127; 99396 ==

== ENCOUNTER 2024-07-07 07:28 | Outpatient (REF) | payer OTHER, SELFPAY ==
[2024-07-07 08:21] LABS: MANUAL DIFF FLAG NO
[2024-07-07 08:30] LABS: Basophils Percent Auto 0.4 % (0-2); Eosinophils Absolute Auto 0.2 X10*3/uL (0.0-0.4); Hematocrit 36.9 % (37.0-47.0); Hemoglobin 11.6 g/dl (12.0-16.0); Imm Gran Abs Auto 0.02 X10*3/uL (0.00-0.03); Imm Gran Pct Auto 0.3 % (0.0-0.4); Lymphocytes Absolute Auto 2.5 X10*3/uL (1.2-4.9); Lymphocytes Percent Auto 35.1 % (20-40); Mean Corpuscular HGB Conc 31.4 g/dl (31.0-35.0); Mean Corpuscular Hemoglobin 27.4 pg (27.0-33.0); Mean Corpuscular Volume 87.2 fL (80.0-98.0); Mean Platelet Volume 9.7 fL (9.4-12.3); Monocytes Absolute Auto 0.5 X10*3/uL (0.1-1.2); Monocytes Percent Auto 7.5 % (2-11); Neutrophils Absolute Auto 3.8 x10*3/uL (2.0-8.3); Neutrophils Percent Auto 53.7 % (45-73); Platelet Count 392 X10*3/uL (160-400); Red Blood Count 4.23 X10*6/uL (4.20-5.50); Red Cell Distribution Width 12.3 % (11.0-16.0)
[2024-07-07 08:41] LABS: Estimated Average Glucose 146 mg/dL; Hemoglobin A1C 149.3038 umol/L; Hemoglobin A1c % 6.7 % (<6.0)
[2024-07-07 09:12] LABS: Alanine Aminotransferase 8 U/L (0-31); Anion Gap 11 (12-20); Aspartate Amino Transferase 14 U/L (5-31); Blood Urea Nitrogen 20 mg/dL (9-16); Calcium 8.9 mg/dL (8.4-10.2); Carbon Dioxide 28 mmol/L (22-29); Chloride 106 mmol/L (96-108); Cholesterol 108 mg/dL (<200); Estimated Glomerular Filt Rate 56; Glucose Fasting 139 mg/dL (60-99); HDL Cholesterol 37 mg/dL (>40); Iron 40 mcg/dL (30-160); LDL Cholesterol Calculated 54 mg/dL (<100); Percent Iron Saturation 19 % (15-50); Potassium 4.8 mmol/L (3.3-5.1); Sodium 140 mmol/L (135-145); Total Iron Binding Capacity 213 mcg/dL (228-428); Triglycerides 88 mg/dL (<150); Unsaturated Iron Binding 173 ug/dL
[2024-07-07 09:29] LABS: Vitamin D 25-OH Total 35.8 ng/mL (>30)
[2024-07-07 09:33] LABS: Creatinine Urine 76.82 mg/dL; Microalbum/Creatinine Ratio Ur 14.3 ug/mg cr (<30)
== END 2024-07-07 07:29 | disposition home or self-care (01) ==
LOC: HO.LAB 07:28
PROVIDERS: PCP Internal Medicine; Visit Provider Internal Medicine
DX: D64.9 Anemia, unspecified (principal); E11.65 Type 2 diabetes mellitus with hyperglycemia; E66.01 Morbid (severe) obesity due to excess calories; I10 Essential (primary) hypertension; F41.1 Generalized anxiety disorder; Z78.0 Asymptomatic menopausal state; Z86.0101 Personal history of adenomatous and serrated colon polyps
CPT/HCPCS: 36415; 80048; 80061; 82043; 82306; 82570; 83036; 83540; 84450; 84460; 85025

== ENCOUNTER 2024-07-12 09:10 | Outpatient (AMB) | payer OTHER, SELFPAY ==
[2024-07-12 09:13] VITALS: BP 102/70; PULSE 71; RESP 16; TEMP 36.7; O2SAT 94; BMI 43.5
--- NOTE | 2024-07-12 09:13 | MHC.PC.OV ---
Vital Signs 07/12/24 09:13 Height 4 ft 8 in Weight 194 lb BMI 43.5 BP 102/70 Blood Pressure Location Lt brachial Position Sitting Respiration 16 Pulse 71 Pulse Source Pulse Oximeter Temp 98.1 F Temp Source Oral Pulse Oximetry (%) 94 Oxygen Delivery Method Room Air Intake Visit Reasons: ffup dm, anemia & lipids Intake Note: Pt is here today for her DM.lipids and anemia Allergies No Known Allergies [No Known Allergies*] Allergy (Verified 07/12/24 09:53) Medication List - Last Reconciled 07/12/24 by Praveena Denton MD acetaminophen (Tylenol Extra Strength) 500 mg PO Q6H PRN blood sugar diagnostic (FreeStyle Lite Strips) check fasting glucose qd ac blood-glucose meter (FreeStyle [place] Lite kit) check fasting glucose qd ac citalopram 20 mg PO DAILY ferrous sulfate 325 mg PO DAILY ibuprofen 600 mg PO Q6-8H PRN lancets (FreeStyle Lancets) Test sugar QD ac lisinopril 5 mg PO QAM metformin 500 mg PO DAILY 3 months rosuvastatin 5 mg PO 2XW 3 months triamcinolone acetonide 0.025% 1 appl topical DAILY PRN Tobacco use date assessed: 07/12/24 Dental Screening Dental Screen Date: 07/12/24 Did you have a dental visit in the last 12 months?: No Did you have a dental problem in the last 6 months where you did not have access to dental care?: No Was dental information given to patient?: Patient declined HPI ffup dm, anemia & lipids HPI Details 64-year-old lady with diabetes mellitus, hypertension, dyslipidemia and morbid obesity is was generalized anxiety disorder, here today for her follow-up. She has been taking her medicines as directed, but admits to not being as active this past few months due to the weather and the holidays. She also has iron-deficiency anemia currently on ferrous sulfate taken once a day. Denies any adverse effects from the medication, no constipation [facility] Medical History (Updated 07/16/24 @ 08:55 by Praveena Denton MD) Iron deficiency anemia Hx of adenomatous polyp of colon Tubular adenoma of colon Pain of right shoulder joint on movement Type 2 diabetes mellitus without complication, with no history of insulin use Painful arc syndrome of left shoulder Generalized anxiety disorder Postmenopause Bilateral primary osteoarthritis of knee Osteoarthritis HTN (hypertension) Fibromyalgia Surgical History Hx of colonoscopy History of inguinal herniorrhaphy H/O arthroscopy of left knee Family History Father Myocardial infarction Cancer of prostate Substance use disorder Mother HTN (hypertension) Diabetes mellitus Maternal Grandmother HTN (hypertension) Daughter No problems noted. Daughter No problems noted. Daughter No problems noted. Daughter No problems noted. Sister No problems noted. Sister No problems noted. Sister No problems noted. Sister No problems noted. Brother No problems noted. Brother No problems noted. Brother No problems noted. Brother No problems noted. Brother Substance use disorder Brother No problems noted. Brother No problems noted. 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 1. Little interest or pleasure in doing things: not at all 2. Feeling down, depressed, or hopeless: not at all 3. Trouble falling or staying asleep, or sleeping too much: not at all 4. Feeling tired or having little energy: several days 5. Poor appetite or overeating: several days 6. Feeling bad about yourself - or that you are a failure or have let yourself or your family down: not at all 7. Trouble concentrating on things, such as reading the newspaper or watching television: not at all 8. Moving or speaking so slowly that other people could have noticed. Or the opposite - being so fidgety or restless that you have been moving around a lot more than usual: not at all 9. Thoughts that you would be better off or of hurting yourself in some way: not at all Total score: 2 Depression Screening Interpretation: Negative Depression Screening Done: Yes Source: Developed by Drs. Les Raya, Nelli Barton, Margarito Hong and colleagues, with an educational heydi from [employer]. Thrive Questionnaire Date Thrive assessed: 07/12/24 I am a: Patient What is your living situation today?: I have a steady place to live Within the past 12 months, did the food you bought not last and you didn't have the money to get more?: Never true Within the past 12 months, did you worry whether your food would run out before you got money to buy more?: Never true Do you have trouble paying for medicines?: No Do you have trouble getting transportation to medical appointments?: No Do you have trouble paying your heating and electricity bill?: No Do you have trouble taking care of your child, family member or friend?: No Do you have trouble with day-to-day activities such as bathing, preparing meals, shopping, managing finances, etc.?: No Are you currently unemployed and looking for a job?: No Are you interested in more education?: No Please select the resources that you would like help with: None Currently or been in a relationship where the following occur: No concerns reported THRIVE Score: 0 AUDIT C Alcohol Use Questionnaire (AUDIT-C) 1. How often do you have a drink containing alcohol?: Never Total Score: 0 NORBERTO-7 AMB Questionnaire NORBERTO-7 Date NORBERTO - 7 assessed: 07/12/24 Feeling nervous, anxious, or on edge: 1 = Several days Not being able to stop or control worryin = Several days Worrying too much about different things: 1 = Several days Trouble relaxin = Not at all Being so restless that it is hard to sit still: 0 = Not at all Becoming easily annoyed or irritable: 1 = Several days Feeling afraid as if something awful might happen: 1 = Several days Total NORBERTO-7 score (0-4 normal; 5-9 mild; 10-14 moderate; 15-21 severe): 5 Source: Developed by Drs. Les Raya, Margarito Gotti and colleagues, with an educational heydi from [employer]. NORBERTO-7 Assessment Billing NORBERTO-7 Assessment Tool: NORBERTO-7 Assessment 93860 Review of Systems Const Denies weight gain and Denies weight loss Eyes Details: utd with Dr Carlos Alatorre , has appt scheduled for 06/2024, has myopia ENT Reports Normal hearing present Card Reports no additional complaints Resp Reports no additional complaints GI Denies abdominal pain, Denies melena, Denies bloating, Denies change in bowel habits, Denies excessive flatus and Denies heartburn Reports no additional complaints Musc Reports no additional complaints Skin/Breast Denies breast pain, Denies breast mass and Denies rash Neuro Reports Normal hearing present and Denies Sensory deficit (Neuro) Psych Reports no additional complaints Endo Reports no additional complaints Spencer/Lymph Reports no additional complaints Aller/Immun Reports no additional complaints Physical exam (Primary Care) Vital Signs: Last Vital Signs Temp 98.1 F 07/12/24 09:13 Pulse 71 07/12/24 09:13 Resp 16 07/12/24 09:13 BP 102/70 07/12/24 09:13 Pulse Ox 94 07/12/24 09:13 Oxygen Delivery Method Room Air 07/12/24 09:13 BMI result Body Mass Index 43.5 BMI Assessment/Plan discussion: High BMI High, discussed plan: lifestyle, weight reduction, dietary and physical activity Tobacco/Smoking Status: Tobacco use Status Tobacco use date assessed 07/12/24 07/12/24 09:15 Patient Tobacco Use Status Never used Tobacco 07/12/24 09:15 Tobacco use type Cigarette 07/12/24 09:15 e-Cigarette/Vaping Use Never Used 07/12/24 09:15 PHQ-9: PHQ-9 Score PHQ-9: Total score 3 07/12/24 10:05 Depression Screening Interpretation: Negative Thrive Assessment: Date of Thrive Assessment Date Thrive assessed 07/12/24 07/12/24 09:26 Currently or been in a relationship where the following occur: No concerns reported Const General: no acute distress Nutritional Appearance: obese morbidly obese Orientation/consciousness: patient oriented x3 HENMT Ears: external ears normal General nose exam: Normal external nose present Face and sinus: Yes face symmetric Mouth: oropharynx normal and moist mucous membranes Eyes Conjunctivae: conjunctivae normal Sclerae: sclerae normal Pupils: Equal, round and reactive pupils present EOM: EOMs intact bilaterally Neck Neck: Yes full ROM and Yes no lymphadenopathy Thyroid: Thyroid normal Resp Effort & Inspection: normal respiratory effort and able to speak in complete sentences Auscultation: clear to auscultation bilaterally Cardio Rate: regular rate Rhythm: regular rhythm Heart sounds: S1 normal heart sound present and S2 normal heart sound present GI Inspection: Yes obesity Palpation (GI): Soft to palpation, nontender, no guarding and no masses Auscultation: normal bowel sounds Skin Other: Scattered hyperpigmented skin tags on anterior neck Neuro General: patient oriented x3 Cranial nerves: Yes Equal, round and reactive pupils present and Yes Normal hearing present Gait exam (Neuro): Normal gait present Motor exam (neuro): 5/5 motor strength present throughout Sensory Exam: No Sensory deficit (Neuro) Extrem General: Yes normal to inspection, Yes full ROM, Yes no joint enlargement, Yes no clubbing, cyanosis or edema, Yes no calf tenderness and Yes normal gait Psych Appearance: grossly normal and well kempt Mental Status: mental status grossly normal Speech and movement: Normal speech and movement present Affect: normal affect Attitude: cooperative Thought process: Normal thought process present Thought content: Normal thought content present Results Reviewed Results Reviewed: Name: Maria Elena Lawrence Age/Sex: 64/F : 1960 Unit#: [id number] Attend Dr: Praveena Denton MD Re07/07/24 Status: DEP [facility] Disch: SPEC : [id number] HAIM: 07/07/24 STATUS: COMP REQ : [id number] RECD: 07/07/[address]: Praveena Denton MD COMP: 07/07/24 ENTERED: 07/07/[address] [facility] [address]: ORDERED: CBC Auto Diff Test Result Flag Reference WBC 7.0 4.8-10.8 X10*3/uL RBC 4.23 4.20-5.50 X10*6/uL HGB 11.6 L 12.0-16.0 g/dl HCT 36.9 L 37.0-47.0 % MCV 87.2 80.0-98.0 fL MCH 27.4 27.0-33.0 pg MCHC 31.4 31.0-35.0 g/dl RDW 12.3 11.0-16.0 % PLT 392 160-400 X10*3/uL MPV 9.7 9.4-12.3 fL Neut Pct Auto 53.7 45-73 % ImGran Pct Auto 0.3 0.0-0.4 % Lymp Pct Auto 35.1 20-40 % Cameron Pct Auto 7.5 2-11 % Eos Pct Auto 3.0 0-4 % Baso Pct Auto 0.4 0-2 % NRBC Pct Auto 0.0 0.0-0.2 /100WBC ANC Neut Abs # 3.8 2.0-8.3 x10*3/uL ImGran Abs Auto 0.02 0.00-0.03 X10*3/uL Lymph Abs Auto 2.5 1.2-4.9 X10*3/uL Cameron Abs Auto 0.5 0.1-1.2 X10*3/uL Eos Abs Auto 0.2 0.0-0.4 X10*3/uL Baso Abs Auto 0.0 0.0-0.2 X10*3/uL NRBC Abs Auto 0.000 0.0-0.012 X10*3/uL Name: Maria Elena Lawrence Age/Sex: 64/F : 1960 Unit#: [id number] Attend Dr: Praveena Denton MD Re07/07/24 Status: DEP REF Location: [facility] Disch: SPEC : [id number] HAIM: 07/07/24 STATUS: COMP REQ : [id number] RECD: 07/07/[address] [facility] [address]: Praveena Denton MD COMP: 07/07/24 ENTERED: 07/07/[address] [facility] [address]: ORDERED: Met Prof Fast, IRON PROF, AST, ALT, Lipid Panel, Vitamin D 25-OH Test Result Flag Reference Sodium 140 135-145 mmol/L Potassium 4.8 3.3-5.1 mmol/L CL 106 96-108 mmol/L CO2 28 22-29 mmol/L Gap 11 L 12-20 BUN 20 H 9-16 mg/dL Creat 1.00 0.5-1.4 mg/dL eGFR 56 Chronic Kidney Disease: Estimated GFR < 60 mL/min/1.73m2 Severe Kidney Disease: Estimated GFR < 15 mL/min/1.73m2 FBS 139 H 60-99 mg/dL A fasting glucose of 126 mg/dl or greater on more than one occasion is considered diagnostic of diabetes. CA 8.9 8.4-10.2 mg/dL Iron 40 30-160 mcg/dL TIBC 213 L 228-428 mcg/dL Saturation 19 15-50 % UIBC 173 ug/dL AST (GOT) 14 5-31 U/L ALT (GPT) 8 0-31 U/L Triglyceride 88 <150 mg/dL Desirable Triglyceride: less than 150 mg/dL Borderline High Triglyceride 150-199 mg/dL High Triglyceride: 200-499 mg/dL Very High Triglyceride: greater than or equal to 5OO mg/dL Cholesterol 108 <200 mg/dL Desirable Cholesterol: less than 200 mg/dL Borderline High Cholesterol: 200-239 mg/dL High Cholesterol: greater than 239 mg/dL LDL Calculated 54 <100 mg/dL Desirable LDL: less than 100 mg/dL Near Optimal/Above Optimal LDL: 110-129 mg/dL Borderline High LDL: 130-159 mg/dL High LDL: 160-189 mg/dL Very High LDL: greater than or equal to 190 mg/dL HDL 37 L >40 mg/dL Desirable HDL: greater than 40 mg/dL Note: This HDL assay may give artificially low results in patients with liver disease. Vit D 25-OH Tot 35.8 >30 ng/mL Health Based Reference Values* < 20 ng/mL Deficient 20-30 ng/mL Insufficient > 30 ng/mL Sufficient Coding Level of Care Code Est Pt Level 4 (46368) Complex EM visit Add On G2211 Diagnoses Primary hypertension I10 Hypertension type: primary hypertension Generalized anxiety disorder F41.1 Morbid obesity E66.01 Type 2 diabetes mellitus without complication, with no history of insulin use E11.9 Iron deficiency anemia, unspecified iron deficiency anemia type D50.9 Iron deficiency anemia type: unspecified iron deficiency Additional Codes NORBERTO-7 Assessment Billing - NORBERTO-7 Assessment Tool: NORBERTO-7 Assessment [id number] ([id number]) Assessment & Plan Assessment & Plan (1) HTN (hypertension): Code(s): I10 - Essential (primary) hypertension Category: Medical Qualifiers: Hypertension type: primary hypertension Qualified Code(s): I10 - Essential (primary) hypertension Plan: Blood pressure at goal of less than 130/80. Continue lisinopril 5 mg daily Reinforced importance of following a low sodium diet, getting regular exercise, and lowering stress levels. (2) Generalized anxiety disorder: Code(s): F41.1 - Generalized anxiety disorder Category: Medical Plan: Continue citalopram 20 mg daily (3) Morbid obesity: Code(s): E66.01 - Morbid (severe) obesity due to excess calories Category: Medical Plan: Discussed need to increase activity and wt reduction. Recommended focusing on improving your health instead of dieting. : Eat Mediterranean diet, limit foods high in fat, sugar, and calories, eat slowly, pay attention to portion sizes, plan your meals ahead of time, start regular physical activity 150 minutes of moderate intensity exercise or 90 minutes/week of vigorous exercise (4) Type 2 diabetes mellitus without complication, with no history of insulin use: Code(s): E11.9 - Type 2 diabetes mellitus without complications Category: Medical Plan: Hemoglobin 6.7% slightly higher than last continued on metformin 500 mg once a day, continue to check fasting blood sugar at home, maintain log and bring to next appointment for review. Reinforced diabetic diet and regular exercise with patient. Counseled regarding importance of yearly diabetes retinopathy screening. Patient advised to inspect feet daily, for any signs of injury, callus or infection. Compliance with diet and regular exercise again stressed. Blood pressure goal is less than 130/80, goal LDL is less than 100 and goal hemoglobin A1c is less than 7% follow-up appointment made in-6--months, after fasting labs done. (5) Iron deficiency anemia: Code(s): D50.9 - Iron deficiency anemia, unspecified Category: Medical Qualifiers: Iron deficiency anemia type: unspecified iron deficiency Qualified Code(s): D50.9 - Iron deficiency anemia, unspecified Plan: Continue ferrous sulfate 325 mg once a day. Repeat CBC and iron profile in six-months Orders: Orders Basic Metabolic Panel Fasting 12/31/24 D50.9 - Iron deficiency anemia, unspecified, E11.9 - Type 2 diabetes mellitus without complications, E66.01 - Morbid (severe) obesity due to excess calories, F41.1 - Generalized anxiety disorder, I10 - Essential (primary) hypertension, Z78.0 - Asymptomatic menopausal state, Z86.0101 - Personal history of adenomatous and serrated colon polyps Lipid Panel 12/31/24 D50.9 - Iron deficiency anemia, unspecified, E11.9 - Type 2 diabetes mellitus without complications, E66.01 - Morbid (severe) obesity due to excess calories, F41.1 - Generalized anxiety disorder, I10 - Essential (primary) hypertension, Z78.0 - Asymptomatic menopausal state, Z86.0101 - Personal history of adenomatous and serrated colon polyps Hemoglobin A1c 12/31/24 D50.9 - Iron deficiency anemia, unspecified, E11.9 - Type 2 diabetes mellitus without complications, E66.01 - Morbid (severe) obesity due to excess calories, F41.1 - Generalized anxiety disorder, I10 - Essential (primary) hypertension, Z78.0 - Asymptomatic menopausal state, Z86.0101 - Personal history of adenomatous and serrated colon polyps Alanine Aminotransferase 12/31/24 D50.9 - Iron deficiency anemia, unspecified, E11.9 - Type 2 diabetes mellitus without complications, E66.01 - Morbid (severe) obesity due to excess calories, F41.1 - Generalized anxiety disorder, I10 - Essential (primary) hypertension, Z78.0 - Asymptomatic menopausal state, Z86.0101 - Personal history of adenomatous and serrated colon polyps Aspartate Amino Transferase 12/31/24 D50.9 - Iron deficiency anemia, unspecified, E11.9 - Type 2 diabetes mellitus without complications, E66.01 - Morbid (severe) obesity due to excess calories, F41.1 - Generalized anxiety disorder, I10 - Essential (primary) hypertension, Z78.0 - Asymptomatic menopausal state, Z86.0101 - Personal history of adenomatous and serrated colon polyps Complete Blood Count Auto Diff 12/31/24 D50.9 - Iron deficiency anemia, unspecified, E11.9 - Type 2 diabetes mellitus without complications, E66.01 - Morbid (severe) obesity due to excess calories, F41.1 - Generalized anxiety disorder, I10 - Essential (primary) hypertension, Z78.0 - Asymptomatic menopausal state, Z86.0101 - Personal history of adenomatous and serrated colon polyps IRON PROFILE 12/31/24 D50.9 - Iron deficiency anemia, unspecified, E11.9 - Type 2 diabetes mellitus without complications, E66.01 - Morbid (severe) obesity due to excess calories, F41.1 - Generalized anxiety disorder, I10 - Essential (primary) hypertension, Z78.0 - Asymptomatic menopausal state, Z86.0101 - Personal history of adenomatous and serrated colon polyps
== END 2024-07-12 10:27 | disposition home or self-care (01) ==
LOC: HO.HMCC 09:11
PROVIDERS: PCP Internal Medicine; Visit Provider Internal Medicine
DX: E11.9 Type 2 diabetes mellitus without complications (principal); E66.01 Morbid (severe) obesity due to excess calories; Z68.41 Body mass index [BMI] 40.0-44.9, adult; I10 Essential (primary) hypertension; F41.1 Generalized anxiety disorder; D50.9 Iron deficiency anemia, unspecified

== ENCOUNTER → 2024-07-12 09:10 | Outpatient (BNVA) | payer OTHER, SELFPAY | PROVIDERS: PCP Internal Medicine; Visit Provider Internal Medicine | DX: I10 Essential (primary) hypertension (principal); F41.1 Generalized anxiety disorder; E66.01 Morbid (severe) obesity due to excess calories; E11.9 Type 2 diabetes mellitus without complications; D50.9 Iron deficiency anemia, unspecified | CPT/HCPCS: 96127; 99212 ==

== ENCOUNTER 2024-07-20 08:24 | Outpatient (AMB) | payer OTHER, SELFPAY ==
[2024-07-20 08:56] VITALS: BP 122/70; PULSE 70; O2SAT 97
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
== END 2024-07-20 10:10 | disposition home or self-care (01) ==
PROVIDERS: PCP Internal Medicine; Visit Provider Physician Assistant Medical
DX: S13.9XXA Sprain of joints and ligaments of unspecified parts of neck, initial encounter (principal); S33.5XXA Sprain of ligaments of lumbar spine, initial encounter

== ENCOUNTER → 2024-07-20 08:24 | Outpatient (BNVA) | payer OTHER, SELFPAY | PROVIDERS: PCP Internal Medicine; Visit Provider Physician Assistant Medical ==

== ENCOUNTER 2025-01-07 07:33 | Outpatient (REF) | payer OTHER, SELFPAY ==
--- OUTSIDE RECORDS SUMMARY | 2025-01-07 07:35 | XMS_ITS | Patient Health Record ---
Author Organization [facility] [place] [place] [place] Address [address] [address] Care Team Providers Care Oxyacetylene Burner Name Role Phone Bertin SAWANT, Praveena Christensen Primary Care Provider Un available Tk Conley Unavailable [phone] Reason For Referral No Information Medications Medication SIG (Take, Route, Frequency, Duration) Notes Start Date End Date Status Citalopram Hydrobromide Active Aldara 5 % 1 application to aff ected area before going to bed Externally Daily under occlusion; Duration: 30 Active Aldara Active Metoprolol Succinate ER Active Amitriptyline & Diet Manage Pr Active Methocarbamol Active Meloxicam Active Problems Problem Type SNOMED Code ICD Code Onset Dates Problem Status W/U Status Risk Notes Problem Onychomycosis (478608200) Onychomycosis (110.1) Active confirmed Problem Pain in limb (35123989) Pain in Limb (729.5) Active confirmed Problem Verruca plantaris (90685157) Verruca Plantaris (078.19) Active confirmed Plan Of Treatment Pending Test Test Name Order Date [id number] Destruction, 05-1511/07/2012 [id number] Destruction, 05-1501/23/2013 [id number] Destruction, 05-1502/20/2013 [id number] Destruction, 05-1505/22/2013 Insurance Providers Payer Name Payer Address Payer Phone Subscriber Number Group Number Insured Name Patient Relationship to Insured Coverage Start Date Coverage End Date [facility] [address] [facility] [place] [id number] Angelito Lawrence Spouse - patient is the spouse of the insured Medical (General) History Medical History History ICD Code anemia anxiety back, hip, knee pain depression fibromyalgia chicken pox Surgical History Surgery Date(Month/Year) knee surgery
[2025-01-07 07:48] LABS: MANUAL DIFF FLAG NO
[2025-01-07 08:26] LABS: Hematocrit 39.6 % (37.0-47.0); Hemoglobin 12.2 g/dl (12.0-16.0); Imm Gran Abs Auto 0.02 X10*3/uL (0.00-0.03); Imm Gran Pct Auto 0.3 % (0.0-0.4); Lymphocytes Absolute Auto 3.1 X10*3/uL (1.2-4.9); Mean Corpuscular HGB Conc 30.8 g/dl (31.0-35.0); Mean Corpuscular Hemoglobin 27.7 pg (27.0-33.0); Mean Corpuscular Volume 89.8 fL (80.0-98.0); NRBC Abs Auto 0.000 X10*3/uL (0.0-0.012); NRBC Pct Auto 0.0 /100WBC (0.0-0.2); Platelet Count 353 X10*3/uL (160-400); Red Blood Count 4.41 X10*6/uL (4.20-5.50); White Blood Count 7.0 X10*3/uL (4.8-10.8)
[2025-01-07 08:35] LABS: Hemoglobin A1C 159.9766 umol/L; Total Hemoglobin (HGBA1C) 3204.5692 umol/L
[2025-01-07 09:16] LABS: Alanine Aminotransferase 10 U/L (0-31); Anion Gap 12 (12-20); Aspartate Amino Transferase 21 U/L (5-31); Blood Urea Nitrogen 19 mg/dL (9-16); Calcium 9.0 mg/dL (8.4-10.2); Carbon Dioxide 29 mmol/L (22-29); Chloride 104 mmol/L (96-108); Cholesterol 120 mg/dL (<200); Estimated Glomerular Filt Rate 50; HDL Cholesterol 38 mg/dL (>40); Iron 57 mcg/dL (30-160); Percent Iron Saturation 27 % (15-50); Potassium 4.5 mmol/L (3.3-5.1); Sodium 140 mmol/L (135-145); Total Iron Binding Capacity 212 mcg/dL (228-428); Triglycerides 116 mg/dL (<150); Unsaturated Iron Binding 155 ug/dL
== END 2025-01-07 07:34 | disposition home or self-care (01) ==
LOC: HO.LAB 07:33
PROVIDERS: PCP Internal Medicine; Visit Provider Internal Medicine
DX: I10 Essential (primary) hypertension (principal); E11.9 Type 2 diabetes mellitus without complications; E66.01 Morbid (severe) obesity due to excess calories; F41.1 Generalized anxiety disorder; D50.9 Iron deficiency anemia, unspecified; Z86.0101 Personal history of adenomatous and serrated colon polyps; Z78.0 Asymptomatic menopausal state
CPT/HCPCS: 36415; 80048; 80061; 83036; 83540; 84450; 84460; 85025

== ENCOUNTER 2025-01-14 09:12 | Outpatient (AMB) | payer OTHER, SELFPAY ==
[2025-01-14 09:41] VITALS: BP 110/64; PULSE 83; RESP 16; TEMP 36.7; O2SAT 98; BMI 44.4
--- NOTE | 2025-01-14 09:41 | A.OFFPC_ITS ---
Vital Signs 01/14/25 09:41 Height 4 ft 8 in Weight 198 lb BMI 44.4 BP 110/64 Blood Pressure Location Lt brachial Position Sitting Respiration 16 Pulse 83 Pulse Source Pulse Oximeter Temp 98.1 F Temp Source Oral Pulse Oximetry (%) 98 Oxygen Delivery Method Room Air Intake Visit Reasons: 6m follow up- A1C needed. Intake Note: Pt is here today for her 6mo. f/u Allergies No Known Allergies (No Known Allergies*) Allergy (Verified 01/14/25 09:52) Medication List - Last Reconciled 01/14/25 by Praveena Denton MD acetaminophen (Tylenol Extra Strength) 500 mg PO Q6H PRN blood sugar diagnostic (FreeStyle Lite Strips) check fasting glucose qd ac blood-glucose meter (FreeStyle [place] Lite kit) check fasting glucose qd ac citalopram 20 mg PO DAILY ferrous sulfate 325 mg PO DAILY ibuprofen 600 mg PO Q6-8H PRN lancets (FreeStyle Lancets) Test sugar QD ac lisinopril 5 mg PO QAM metformin 500 mg PO DAILY 3 months rosuvastatin 5 mg PO 2XW 3 months Tobacco use date assessed: 07/12/24 Dental Screening Dental Screen Date: 01/14/25 Did you have a dental visit in the last 12 months?: No Did you have a dental problem in the last 6 months where you did not have access to dental care?: No Was dental information given to patient?: Patient declined HPI 6m follow up- A1C needed. HPI Details 64-year-old lady with diabetes mellitus, hypertension, dyslipidemia and morbid obesity is was generalized anxiety disorder, here today for her follow- up. Compliant with taking her medications and has been feeling well with no complaints at present time. [facility] Medical History (Updated 01/14/25 @ 10:14 by Praveena Denton MD) Dyslipidemia History of anemia Iron deficiency anemia Hx of adenomatous polyp of colon Tubular adenoma of colon Pain of right shoulder joint on movement Type 2 diabetes mellitus without complication, with no history of insulin use Painful arc syndrome of left shoulder Generalized anxiety disorder Postmenopause Bilateral primary osteoarthritis of knee Osteoarthritis HTN (hypertension) Fibromyalgia Surgical History Hx of colonoscopy History of inguinal herniorrhaphy H/O arthroscopy of left knee Family History Father Myocardial infarction Cancer of prostate Substance use disorder Mother HTN (hypertension) Diabetes mellitus Maternal Grandmother HTN (hypertension) Daughter No problems noted. Daughter No problems noted. Daughter No problems noted. Daughter No problems noted. Sister No problems noted. Sister No problems noted. Sister No problems noted. Sister No problems noted. Brother No problems noted. Brother No problems noted. Brother No problems noted. Brother No problems noted. Brother Substance use disorder Brother No problems noted. Brother No problems noted. 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 1. Little interest or pleasure in doing things: not at all 2. Feeling down, depressed, or hopeless: not at all 3. Trouble falling or staying asleep, or sleeping too much: not at all 4. Feeling tired or having little energy: several days 5. Poor appetite or overeating: several days 6. Feeling bad about yourself - or that you are a failure or have let yourself or your family down: not at all 7. Trouble concentrating on things, such as reading the newspaper or watching television: not at all 8. Moving or speaking so slowly that other people could have noticed. Or the opposite - being so fidgety or restless that you have been moving around a lot more than usual: not at all 9. Thoughts that you would be better off or of hurting yourself in some way: not at all Total score: 2 Depression Screening Interpretation: Negative Depression Screening Done: Yes Source: Developed by Drs. Les Raya, Nelli Barton, Margarito Hong and colleagues, with an educational heydi from [employer]. Thrive Questionnaire Date Thrive assessed: 07/12/24 I am a: Patient What is your living situation today?: I have a steady place to live Within the past 12 months, did the food you bought not last and you didn't have the money to get more?: Never true Within the past 12 months, did you worry whether your food would run out before you got money to buy more?: Never true Do you have trouble paying for medicines?: No Do you have trouble getting transportation to medical appointments?: No Do you have trouble paying your heating and electricity bill?: No Do you have trouble taking care of your child, family member or friend?: No Do you have trouble with day-to-day activities such as bathing, preparing meals, shopping, managing finances, etc.?: No Are you currently unemployed and looking for a job?: No Are you interested in more education?: No Please select the resources that you would like help with: None Currently or been in a relationship where the following occur: No concerns reported THRIVE Score: 0 AUDIT C Alcohol Use Questionnaire (AUDIT-C) 2. How many drinks containing alcohol do you have on a typical day when you are drinking?: 1 or 2 3. How often do you have six or more drinks on one occasion?: Never Total Score: 0 NORBERTO-7 AMB Questionnaire NORBERTO-7 Date NORBERTO - 7 assessed: 07/12/24 Feeling nervous, anxious, or on edge: 1 = Several days Not being able to stop or control worryin = Not at all Worrying too much about different things: 1 = Several days Trouble relaxin = Not at all Being so restless that it is hard to sit still: 0 = Not at all Becoming easily annoyed or irritable: 1 = Several days Feeling afraid as if something awful might happen: 0 = Not at all Total NORBERTO-7 score (0-4 normal; 5-9 mild; 10-14 moderate; 15-21 severe): 3 Source: Developed by Drs. Les Raya, Nelli Barton, Margarito Hong and colleagues, with an educational heydi from [employer]. NORBERTO-7 Assessment Billing NORBERTO-7 Assessment Tool: NORBERTO-7 Assessment 68905 (sees ) Review of Systems Const All systems reviewed & are unremarkable except as noted in HPI and below Reports no additional complaints Eyes Reports no additional complaints ENT Reports no additional complaints and Reports Normal hearing present Card Reports no additional complaints Resp Reports no additional complaints GI Reports no additional complaints Reports no additional complaints Musc Reports no additional complaints Skin/Breast Reports system reviewed and no additional complaints, except as documented Neuro Reports no additional complaints, Reports Normal hearing present and Denies Sensory deficit (Neuro) Psych Reports no additional complaints Endo Reports no additional complaints Spencer/Lymph Reports no additional complaints Aller/Immun Reports no additional complaints Physical exam (Primary Care) Vital Signs: Last Vital Signs Temp 98.1 F 01/14/25 09:41 Pulse 83 01/14/25 09:41 Resp 16 01/14/25 09:41 BP 110/64 01/14/25 09:41 Pulse Ox 98 01/14/25 09:41 Oxygen Delivery Method Room Air 01/14/25 09:41 BMI result Body Mass Index 44.4 BMI Assessment/Plan discussion: High BMI High, discussed plan: lifestyle, weight reduction, dietary and physical activity Tobacco/Smoking Status: Tobacco use Status Tobacco use date assessed 07/12/24 01/14/25 09:47 Patient Tobacco Use Status Never used Tobacco 01/14/25 09:47 Tobacco use type Cigarette 01/14/25 09:47 e-Cigarette/Vaping Use Never Used 01/14/25 09:47 PHQ-9: PHQ-9 Score PHQ-9: Total score 2 01/14/25 09:53 Depression Screening Interpretation: Negative Thrive Assessment: Date of Thrive Assessment Date Thrive assessed 07/12/24 01/14/25 09:47 Currently or been in a relationship where the following occur: No concerns reported Const General: no acute distress Nutritional Appearance: obese morbidly obese Orientation/consciousness: patient oriented x3 HENMT Ears: external ears normal General nose exam: Normal external nose present Face and sinus: Yes face symmetric Mouth: oropharynx normal and moist mucous membranes Eyes Conjunctivae: conjunctivae normal Sclerae: sclerae normal Pupils: Equal, round and reactive pupils present EOM: EOMs intact bilaterally Neck Neck: Yes full ROM and Yes no lymphadenopathy Thyroid: Thyroid normal Resp Effort & Inspection: normal respiratory effort and able to speak in complete sentences Auscultation: clear to auscultation bilaterally Cardio Rate: regular rate Rhythm: regular rhythm Heart sounds: S1 normal heart sound present and S2 normal heart sound present GI Inspection: Yes obesity Palpation (GI): Soft to palpation, nontender, no guarding and no masses Auscultation: normal bowel sounds Back/Spine/Pelvis Back: No back tenderness Skin Other: Scattered hyperpigmented skin tags on anterior neck Neuro General: patient oriented x3 Cranial nerves: Yes Equal, round and reactive pupils present and Yes Normal hearing present Gait exam (Neuro): Normal gait present Motor exam (neuro): 5/5 motor strength present throughout Sensory Exam: No Sensory deficit (Neuro) Extrem General: Yes normal to inspection, Yes full ROM, Yes no joint enlargement, Yes no clubbing, cyanosis or edema, Yes no calf tenderness and Yes normal gait Psych Appearance: grossly normal and well kempt Mental Status: mental status grossly normal Speech and movement: Normal speech and movement present Affect: normal affect Results Reviewed Results Reviewed: RUN: 01/14/25 0953 PAGE 1 [facility] [address] [place] [id number] Skip Miner: Eric Chawla M.D. Specimen Inquiry Name: Maria Elena Lawrecne Age/Sex: 64/F : 1960 Unit#: [id number] Attend Dr: Praveena Denton MD Re01/07/25 Status: DEP [facility]F [facility] Disch: SPEC : [id number] HAIM: 01/07/25 STATUS: COMP REQ : [id number] RECD: 01/07/[address]: Praveena Denton MD COMP: 01/07/25 ENTERED: 01/07/[address] [facility] [address]: ORDERED: CBC Auto Diff Test Result Flag Reference WBC 7.0 4.8-10.8 X10*3/uL RBC 4.41 4.20-5.50 X10*6/uL HGB 12.2 12.0-16.0 g/dl HCT 39.6 37.0-47.0 % MCV 89.8 80.0-98.0 fL MCH 27.7 27.0-33.0 pg MCHC 30.8 L 31.0-35.0 g/dl RDW 11.9 11.0-16.0 % PLT 353 160-400 X10*3/uL MPV 10.3 9.4-12.3 fL Neut Pct Auto 43.6 L 45-73 % ImGran Pct Auto 0.3 0.0-0.4 % Lymp Pct Auto 43.8 H 20-40 % [place] Pct Auto 8.0 2-11 % Eos Pct Auto 3.7 0-4 % Baso Pct Auto 0.6 0-2 % NRBC Pct Auto 0.0 0.0-0.2 /100WBC ANC Neut Abs # 3.1 2.0-8.3 x10*3/uL ImGran Abs Auto 0.02 0.00-0.03 X1 0*3/uL Lymph Abs Auto 3.1 1.2-4.9 X10*3/uL [place] Abs Auto 0.6 0.1-1.2 X10*3/uL Eos Abs Auto 0.3 0.0-0.4 X10*3/uL Baso Abs Auto 0.0 0.0-0.2 X10*3/uL NRBC Abs Auto 0.000 0.0-0.012 X10*3/uL Name: Maria Elena Lawrence Age/Sex: 64/F : 1960 Unit#: [id number] Attend Dr: Praveena Denton MD Re01/07/25 Status: DEP REF [facility] Disch: SPEC : [id number] HAIM: 01/07/25 STATUS: COMP REQ : [id number] RECD: 01/07/[address]: Praveena Denton MD COMP: 01/07/25 ENTERED: 01/07/[address] [facility] [address]: ORDERED: Met Prof Fast, IRON PROF, AST, ALT, Lipid Panel Test Result Flag Reference Sodium 140 135-145 mmol/L Potassium 4.5 3.3-5.1 mmol/L CL 104 96-108 mmol/L CO2 29 22-29 mmol/L Gap 12 12-20 BUN 19 H 9-16 mg/dL Creat 1.10 0.5-1.4 mg/dL eGFR 50 Chronic Kidney Disease: Estimated GFR < 60 mL/min/1.73m2 Severe Kidney Disease: Estimated GFR < 15 mL/min/1.73m2 FBS 124 H 60-99 mg/dL A fasting glucose from 100-125 mg/dl is considered impaired (pre-diabetes). CA 9.0 8.4-10.2 mg/dL Iron 57 30-160 mcg/dL TIBC 212 L 228-428 mcg/dL Saturation 27 15-50 % UIBC 155 ug/dL AST (GOT) 21 5-31 U/L ALT (GPT) 10 0-31 U/L Triglyceride 116 <150 mg/dL Desirable Triglyceride: less than 150 mg/dL Borderline High Triglyceride 150-199 mg/dL High Triglyceride: 200-499 mg/dL Very High Triglyceride: greater than or equal to 5OO mg/dL Cholesterol 120 <200 mg/dL Desirable Cholesterol: less than 200 mg/dL Borderline High Cholesterol: 200-239 mg/dL High Cholesterol: greater than 239 mg/dL LDL Calculated 59 <100 mg/dL Desirable LDL: less than 100 mg/dL Near Optimal/Above Optimal LDL: 110-129 mg/dL Borderline High LDL: 130-159 mg/dL High LDL: 160-189 mg/dL Very High LDL: greater than or equal to 190 mg/dL HDL 38 L >40 mg/dL Desirable HDL: greater than 40 mg/dL Note: This HDL assay may give artificially low results in patients with liver disease. Coding Level of Care Code Est Pt Level 4 (99578) Complex EM visit Add On G2211 Diagnoses Generalized anxiety disorder F41.1 Primary hypertension I10 Hypertension type: primary hypertension Type 2 diabetes mellitus without complication, with no history of insulin use E11.9 Morbid obesity E66.01 Dyslipidemia E78.5 Additional Codes NORBERTO-7 Assessment Billing - NORBERTO-7 Assessment Tool: NORBERTO-7 Assessment 25006 ([id number]) Assessment & Plan Assessment & Plan (1) Generalized anxiety disorder: Code(s): F41.1 - Generalized anxiety disorder Category: Medical Plan: Controlled on citalopram 20 mg daily (2) HTN (hypertension): Code(s): I10 - Essential (primary) hypertension Category: Medical Qualifiers: Hypertension type: primary hypertension Qualified Code(s): I10 - Essential (primary) hypertension Plan: Blood pressure at goal of less than 130/80. Continue with lisinopril 5 mg daily. Reinforced importance of following a low sodium diet, getting regular exercise, and lowering stress levels. (3) Type 2 diabetes mellitus without complication, with no history of insulin use: Code(s): E11.9 - Type 2 diabetes mellitus without complications Category: Medical Plan: Latest hemoglobin A1c at 6.7%, no microalbuminuria seen. Continue on metformin 500 mg once a day, and reinforced importance of getting yearly diabetes eye screening and check fruit daily. Check fasting blood sugar once a day keep a log of the readings. (4) Morbid obesity: Code(s): E66.01 - Morbid (severe) obesity due to excess calories Category: Medical Plan: Reinforced importance of adhering to a healthy diet, avoidance of junk foods, and processed foods, and stressed importance of doing at least 30 minutes of moderate intensity exercise daily. (5) Dyslipidemia: Code(s): E78.5 - Hyperlipidemia, unspecified Category: Medical Plan: Latest fasting lipids are within normal limits, continued on rosuvastatin 5 mg taken twice a week Orders: Orders Alanine Aminotransferase 06/02/25 E11.9 - Type 2 diabetes mellitus without complications, E66.01 - Morbid (severe) obesity due to excess calories, E78.5 - Hyperlipidemia, unspecified, F41.1 - Generalized anxiety disorder, I10 - Essential (primary) hypertension, Z78.0 - Asymptomatic menopausal state Aspartate Amino Transferase 06/02/25 E11.9 - Type 2 diabetes mellitus without complications, E66.01 - Morbid (severe) obesity due to excess calories, E78.5 - Hyperlipidemia, unspecified, F41.1 - Generalized anxiety disorder, I10 - Essential (primary) hypertension, Z78.0 - Asymptomatic menopausal state Lipid Panel 06/02/25 E11.9 - Type 2 diabetes mellitus without complications, E66.01 - Morbid (severe) obesity due to excess calories, E78.5 - Hyperlipidemia, unspecified, F41.1 - Generalized anxiety disorder, I10 - Essential (primary) hypertension, Z78.0 - Asymptomatic menopausal state Microalbumin, Random (w Creat) 06/02/25 E11.9 - Type 2 diabetes mellitus without complications, E66.01 - Morbid (severe) obesity due to excess calories, E78.5 - Hyperlipidemia, unspecified, F41.1 - Generalized anxiety disorder, I10 - Essential (primary) hypertension, Z78.0 - Asymptomatic menopausal state Basic Metabolic Panel Fasting 06/02/25 E11.9 - Type 2 diabetes mellitus without complications, E66.01 - Morbid (severe) obesity due to excess calories, E78.5 - Hyperlipidemia, unspecified, F41.1 - Generalized anxiety disorder, I10 - Essential (primary) hypertension, Z78.0 - Asymptomatic menopausal state Hemoglobin A1c 06/02/25 E11.9 - Type 2 diabetes mellitus without complications, E66.01 - Morbid (severe) obesity due to excess calories, E78.5 - Hyperlipidemia, unspecified, F41.1 - Generalized anxiety disorder, I10 - Essential (primary) hypertension, Z78.0 - Asymptomatic menopausal state Vitamin D 25-OH Total 06/02/25 E11.9 - Type 2 diabetes mellitus without complications, E66.01 - Morbid (severe) obesity due to excess calories, E78.5 - Hyperlipidemia, unspecified, F41.1 - Generalized anxiety disorder, I10 - Essential (primary) hypertension, Z78.0 - Asymptomatic menopausal state Vitamin B12 and Folate 06/02/25 E11.9 - Type 2 diabetes mellitus without complications, E66.01 - Morbid (severe) obesity due to excess calories, E78.5 - Hyperlipidemia, unspecified, F41.1 - Generalized anxiety disorder, I10 - Essential (primary) hypertension, Z78.0 - Asymptomatic menopausal state
--- OUTSIDE RECORDS SUMMARY | 2025-01-14 10:51 | XMS_ITS | Patient Health Record ---
Author Organization [facility] Kirit dennis GlaserGuy Address [address] [place] [address] Care Team Providers Care Sole Tier Name Role Phone Bertin SAWANT, Praveena Christensen Primary Care Provider Un available Tk Conley Unavailable [phone] Reason For Referral No Information Medications Medication [...] Status W/U Status Risk Notes Problem Onychomycosis (250433836) Onychomycosis (110.1) Active confirmed Problem Pain in limb (09830782) Pain in Limb (729.5) Active confirmed Problem Verruca plantaris (18196284) Verruca Plantaris (078.19) Active confirmed Plan Of Treatment Pending Test Test Name Order Date [id number] Destruction, 05-1511/07/2012 [id number] Destruction, 05-1501/23/2013 [id number] Destruction, 05-1502/20/2013 [id number] Destruction, 05-1505/22/2013 Insurance Providers Payer Name Payer Address Payer Phone Subscriber Number Group Number Insured Name Patient Relationship to Insured Coverage Start Date Coverage End Date [facility] [address] [facility] [place] [id number] Angelito Lawrence Spouse - patient is the spouse of the insured Medical (General) History Medical History History ICD Code anemia anxiety back, hip, knee pain depression fibromyalgia chicken pox Surgical History Surgery Date(Month/Year) knee surgery
== END 2025-01-14 10:15 | disposition home or self-care (01) ==
LOC: HO.HMCC 09:13
PROVIDERS: PCP Internal Medicine; Visit Provider Internal Medicine
DX: E11.69 Type 2 diabetes mellitus with other specified complication (principal); E66.01 Morbid (severe) obesity due to excess calories; Z68.41 Body mass index [BMI] 40.0-44.9, adult; F41.1 Generalized anxiety disorder; I10 Essential (primary) hypertension; E78.5 Hyperlipidemia, unspecified

== ENCOUNTER → 2025-01-14 09:12 | Outpatient (BNVA) | payer OTHER, SELFPAY | PROVIDERS: PCP Internal Medicine; Visit Provider Internal Medicine | DX: E11.9 Type 2 diabetes mellitus without complications (principal); I10 Essential (primary) hypertension; F41.1 Generalized anxiety disorder; E78.5 Hyperlipidemia, unspecified; E66.01 Morbid (severe) obesity due to excess calories; Z68.41 Body mass index [BMI] 40.0-44.9, adult; Z79.899 Other long term (current) drug therapy | CPT/HCPCS: 96127; 99212 ==

== ENCOUNTER 2025-03-19 07:25 | Outpatient (REF) | payer OTHER, SELFPAY | END 2025-03-19 07:26 | disposition home or self-care (01) | LOC: HO.MAMMO 07:25 | PROVIDERS: PCP Internal Medicine; Visit Provider Internal Medicine | DX: Z12.31 Encounter for screening mammogram for malignant neoplasm of breast (principal) | CPT/HCPCS: 77063; 77067 ==

== ENCOUNTER → 2025-03-19 07:30 | Outpatient (BNV) | payer OTHER, SELFPAY | PROVIDERS: PCP Internal Medicine; Visit Provider Internal Medicine | DX: Z12.31 Encounter for screening mammogram for malignant neoplasm of breast (principal) | CPT/HCPCS: 77063; 77067 ==

== ENCOUNTER 2025-04-11 08:11 | Outpatient (REF) | payer OTHER, SELFPAY ==
[2025-04-11 17:00] LABS: Bacterial Vaginosis PCR POSITIVE (Negative); Candida Group PCR NOT DETECTED (Not Detect); Candida glab krusei PCR NOT DETECTED (Not Detect); Trichomonas vaginalis PCR NOT DETECTED (Not Detect)
[2025-04-11 17:31] LABS: CT PCR NOT DETECTED (Not Detect.); NG PCR NOT DETECTED (Not Detect.)
== END 2025-04-11 08:12 | disposition home or self-care (01) ==
LOC: HO.LNP 08:11
PROVIDERS: PCP Internal Medicine; Visit Provider Advanced Practice Midwife
DX: Z01.419 Encounter for gynecological examination (general) (routine) without abnormal findings (principal); Z20.2 Contact with and (suspected) exposure to infections with a predominantly sexual mode of transmission; N89.8 Other specified noninflammatory disorders of vagina; Z98.51 Tubal ligation status
CPT/HCPCS: 81515; 87491; 87591; 87626; 88175

== ENCOUNTER 2025-04-11 08:11 | Outpatient (AMB) | payer OTHER, SELFPAY ==
--- NOTE | 2025-04-11 08:31 | A.OFFVIS_ITS ---
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 Information Interpreted: non-clinical & clinical High Reach Operator: High Reach Operator Present (Katie) Accompanied by: Self / Same As Patient Allergies No Known Allergies (No Known Allergies*) Allergy (Verified 04/11/25 08:34) Medication List - Last Reconciled 04/11/25 by Mackenzie Gabriel LPN acetaminophen (Tylenol Extra Strength) 500 mg PO Q6H PRN blood sugar diagnostic (FreeStyle Lite Strips) check fasting glucose qd ac blood-glucose meter (FreeStyle [place] Lite kit) check fasting glucose qd ac citalopram 20 mg PO DAILY ferrous sulfate 325 mg PO DAILY ibuprofen 600 mg PO Q6-8H PRN lancets (FreeStyle Lancets) Test sugar QD ac lisinopril 5 mg PO QAM metformin 500 mg PO DAILY 3 months multivitamin with iron 1 tab PO DAILY rosuvastatin 5 mg PO 2XW 3 months Do you need a note to return to daycare/school/sports/work: No HPI Comments Details: Patient is a postmenopausal woman 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 Currently not sexually active, . Denies any vaginal dryness or irritation. STI testing offered; she accepts. Attempting to eat a healthy diet with calcium and vitamin D, admits to no exercise due to fatigue. Last pap smear; 6 yrs. ago, negative. Last mammogram; 2024. Colonoscopy is UTD. [facility] Medical History Dyslipidemia History of anemia Iron deficiency anemia Hx of adenomatous polyp of colon Tubular adenoma of colon Pain of right shoulder joint on movement Type 2 diabetes mellitus without complication, with no history of insulin use Painful arc syndrome of left shoulder Generalized anxiety disorder Postmenopause Bilateral primary osteoarthritis of knee Osteoarthritis HTN (hypertension) Fibromyalgia Surgical History H/O left wrist surgery Tubal ligation status Hx of colonoscopy History of inguinal herniorrhaphy H/O arthroscopy of left knee Family History Father Myocardial infarction Cancer of prostate Substance use disorder Mother HTN (hypertension) Diabetes mellitus Maternal Grandmother HTN (hypertension) Daughter No problems noted. Daughter No problems noted. Daughter No problems noted. Daughter No problems noted. Sister No problems noted. Sister No problems noted. Sister No problems noted. Sister No problems noted. Brother No problems noted. Brother No problems noted. Brother No problems noted. Brother No problems noted. Brother Substance use disorder Brother No problems noted. Brother No problems noted. 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 Current occupational exposures/hazards: No Cognitive needs: No Hearing needs: No Vision needs: Yes Female Reproductive History Menstrual Age of Menarche: 13 control method: permanent sterilization Menopause type: natural Date of menopause: 04/11/10 Total pregnancies: 4 Number of Living Children: 3 Date of last pap smear: 04/11/19 History of abnormal pap smear: No Date of Mammogram: 03/19/25 History of abnormal mammogram: No Review of Systems Const All systems reviewed & are unremarkable except as noted in HPI and below Reports as per HPI Eyes Reports no additional complaints ENT Reports no additional complaints Card Reports no additional complaints Resp Reports no additional complaints GI Reports as per HPI and Reports no additional complaints Reports as per HPI Musc Reports no additional complaints Skin/Breast Reports as per HPI Neuro Reports no additional complaints Psych Reports no additional complaints Endo Reports no additional complaints Spencer/Lymph Reports no additional complaints Aller/Immun Reports no additional complaints Physical Exam Vital Signs: BMI result Body Mass Index 44.4 Const General: cooperative, healthy appearing, no acute distress, well developed and alert Orientation/consciousness: patient oriented x3 HEENT Head: Yes normal to inspection Eyes General: appearance normal, both eyes and all related structures Neck Neck: Yes normal visual inspection Thyroid: Thyroid normal Chest Chest palpation & inspection: normal inspection of the chest and other (no puckering, dimpling, peau de orange, retraction, discharge, masses) Breast/axilla inspection: normal inspection of the breasts Breast/axilla palpation: normal palpation of the breasts Resp Effort & Inspection: normal respiratory effort GI Inspection: Yes normal to inspection Palpation (GI): Soft to palpation Rectal Exam - Female: deferred General: Yes bladder normal to palpation External Female Exam: normal external appearance and normal appearance of the urethra Speculum Exam - Vagina: normal appearance of the vagina, normal palpation, normal vaginal discharge and vagina atrophic (Moderate ) Speculum Exam - Cervix: normal appearance of the cervix, normal palpation and Other cervical findings present (Bled slightly with a past) Bimanual exam- vagina & uterus: normal bimanual exam, normal palpation, uterine size normal, bladder normal to palpation, normal palpation and non-tender Bimanual Exam- Adnexa, other: no masses Skin General skin exam: no rashes or lesions noted Rashes: no rashes Neuro General: patient oriented x3 Cognition (Neuro): normal cognition Extrem General: Yes normal to inspection Psych Attitude: cooperative Thought process: Normal thought process present Assessment & Plan Assessment & Plan (1) Encounter for well woman exam with routine gynecological exam: Code(s): Z01.419 - Encounter for gynecological examination (general) (routine) without abnormal findings Category: Medical Plan: Discussed: Current recommendations for pap smears per ASCCP guidelines. Breast awareness, periodic self breast exams and yearly mammogram. Follow up with primary care due to her fatigue. Maintain a healthy lifestyle, well balanced diet including Calcium 1,200 mg and Vitamin D 600 IU daily, and routine exercise. Contact the office with any postmenopausal bleeding. Patient verbalizes understanding and agrees to the plan of care. She was given opportunity to ask questions and all questions were answered to the best of my ability. RTO in 1 year for annual optical laboratory technician exam. This note is constructed using voice recognition software. While every effort has been made to ensure accuracy, delivery mgr errors may have been included. (2) Vaginal discharge: Code(s): N89.8 - Other specified noninflammatory disorders of vagina Category: Medical Plan BV panel and GC chlamydia obtained await results for final plan of care. The patient expressed understanding and agreement with the plan of care. All of her questions and concerns were addressed to the best of my ability. Orders: Orders HPV High risk Today Z01.419 - Encounter for gynecological examination (general) (routine) without abnormal findings CT NG by PCR Vag/Cerv Today Z11.3 - Encounter for screening for infections with a predominantly sexual mode of transmission Pap Smear Today Z01.419 - Encounter for gynecological examination (general) (routine) without abnormal findings Bacterial Vaginosis Panel Today Z11.3 - Encounter for screening for infections with a predominantly sexual mode of transmission Coding Level of Care Code New Pt Prev Care 40-64y(52087) Diagnoses Encounter for well woman exam with routine gynecological exam Z01.419 Vaginal discharge N89.8
[2025-04-11 08:32] VITALS: BP 112/72; BMI 44.4
== END 2025-04-11 09:04 | disposition home or self-care (01) ==
LOC: HO.HWS 08:11
PROVIDERS: PCP Internal Medicine; Visit Provider Advanced Practice Midwife
DX: Z01.419 Encounter for gynecological examination (general) (routine) without abnormal findings (principal); N89.8 Other specified noninflammatory disorders of vagina
CPT/HCPCS: 99386; 99459